=== PATIENT | female | born 1940 | race Caucasian/White ===

== ENCOUNTER 2016-07-29 07:30 | Inpatient (IN) | payer MEDICARE, BC ==
[~2016-07-29] VITALS: Ht 168.9 cm; Wt 91.7 kg
[~2016-07-29 07:30] MED LIST: ATOR80TA76 PO; CALC-652 PO; CHOL200024 PO; CITA40TA6 PO; FLEC50TA2 PO; LEVO150T11 PO; LISI10TA7 PO; RIVA20TA PO
--- NOTE | 2016-07-29 14:00 | NUR ---
JOINT REPLACEMENT PREOP CLASS PATIENT ATTENDED JOINT REPLACEMENT PREOP CLASS. CASE MANAGEMENT CONTACT INFORMATION PROVIDED. EDUCATION WAS PROVIDED REGARDING WHAT TO EXPECT BEFORE, DURING AND AFTER SURGERY. INCLUDING: OVERVIEW OF ANATOMY AND PHYSIOLOGY HOSPITAL TREATMENT SCHEDULE THERAPY DEMONSTRATION CASE MANAGEMENT RESPONSIBILITIES DISCHARGE PLANNING EQUIPMENT NEEDS JOINT REPLACEMENT WORKBOOK ANTI-COAGULATION SURGERY STRONG NUTRITIONAL PROTOCOL DISCHARGE INSTRUCTIONS [facility] PATIENT PORTAL, WITH INSTRUCTIONS CJR AND PREOP SURVERY PREOP BATHING- CHG GIVEN ALL PATIENT'S QUESTIONS ANSWERED TO THEIR SATISFACTION. PATIENTS AND COACHES ENCOURAGED TO CALL WITH ANY ADDITIONAL QUESTIONS OR CONCERNS. CM FOLLOWING FOR TRANSITIONAL CARE PLANNING NEEDS DURING HOSPITALIZATION.
--- NOTE | 2016-08-04 09:55 | NUR ---
PMH, allergies, meds reviewed and updated. Preop and DOS instructions given and handouts of medications to stop before surgery, shower instructions, letter from Dr Medina, Surgical Services pamphlet and my contact information.
[2016-08-04] MEDS ORDERED: ACYC200C5 PO (10:58)
[2016-08-04] MEDS ORDERED: FURO20TA4 PO (10:58)
[2016-08-04] MEDS ORDERED: POTA8TAB3 PO (10:58)
[2016-08-04] MEDS ORDERED: TIMO5DRO7 LEFT EYE (10:58)
[2016-08-05] MEDS ORDERED: LEVO175T9 PO (14:32)
[2016-08-26] VITALS (28 sets, daily range): BP systolic 95–147; BP diastolic 46–71; PULSE 66–80; RESP 14–23; TEMP 96.8–99.1; O2SAT 91–100; Ht 168.9 cm; Wt 91.7 kg
[2016-08-26] MEDS ORDERED: LIDOCAINE 1% (10mg/ml) 2ml SDV SQ ONE (06:00)
[2016-08-26] MEDS ORDERED: METOCLOPRAMIDE 10mg/2ml INJECTION IV ONE (06:00)
[2016-08-26] MEDS ORDERED: CEFAZOLIN 2 GM VIAL IV ONE (06:00)
[2016-08-26] MEDS ORDERED: FAMOTIDINE 20mg IVPB 50 ML IV ONE (06:00)
[2016-08-26] MEDS ORDERED: ACETAMINOPHEN 500 MG TABLET PO ONE (07:00)
[2016-08-26] MEDS ORDERED: ONDANSETRON 4mg/2ml INJECTION IV ONE (07:00)
[2016-08-26] MEDS ORDERED: NOZIN NASAL SWAB NS ONE ×2 (07:00→14:00)
[2016-08-26] MEDS ORDERED: LR 1,000 ML IV SCH (07:00)
--- OUTSIDE RECORDS SUMMARY | 2016-08-26 09:12 | XMS REPORT | Continuity of Care Document ---
Author Author [facility] Organization [facility] Address Unknown Phone Unavailable Support Name Relationship Address Phone ILEANA QUINTERO MD Caregiver [address] [place] [address] Unavailable ROMY SORIA DO Caregiver [address] [place] [address] Unavailable VANESSA SUN Next Of Kin [address] [place] [address] Insurance Providers Guarantor Linnette Oakes Address [address] [address] C Email [email or web address] Policy Number [id number] Subscriber's Name Linnette Oakes Relationship 18 Self Group Number [id number] Payer Medicare Policy Number [id number] Subscriber's Name Linnette Oakes Relationship 18 Self Advance Directives Directive Response Recorded Date/Time Ordered Resuscitation Status Full Code 03/19/16 2:05pm Resuscitation Documents on File No 03/20/16 6:02am DPOA for Healthcare Only No 03/20/16 6:02am Living Will No 03/20/16 6:02am Problems Active Problems Medical Problem Onset Date Status Acute respiratory failure with hypoxia Unknown Resolved Dyspnea on exertion Unknown Acute Fasting hypoglycemia Unknown Chronic Hypertension Unknown Chronic Hypokalemia Unknown Resolved Hypomagnesemia Unknown Resolved Hypothyroidism Unknown Chronic Hypoxia Unknown Acute New onset atrial flutter Unknown Resolved PAT (paroxysmal atrial tachycardia) Unknown Resolved Prediabetes Unknown Chronic Pulmonary emboli Unknown Acute Pulmonary hypertension Unknown Chronic Sleep apnea Unknown Chronic Status post Castillo fundoplication Unknown Acute Suspected DVT (deep vein thrombosis) Unknown Acute Suspected pulmonary embolism Unknown Acute Swelling of left lower extremity Unknown Acute Tricuspid regurgitation Unknown Chronic Volume overload Unknown Resolved Surgical Problem Onset Date Status Sliding hiatal hernia Unknown Resolved Past Problems Medical Problem Onset Date Adverse reaction to drug Unknown Allergic conjunctivitis Unknown Allergic reaction Unknown Head contusion Unknown Strain of left patellar tendon Unknown Medications Current Home Medications Medication Dose Units Route Directions Days Qty Instructions Start Date Acyclovir 200 Mg Capsule 1 Cap Oral Daily 25 Capsule 03/07/16 Alendronate Sodium 70 Mg Tablet 70 Mg Oral Weekly 10/28/15 Atorvastatin Calcium 80 Mg Tablet 80 Mg Oral Bedtime 10/28/15 Calcium Carbonate (Calcium) 1 Tab Tablet 1,200 Mg Oral Daily 04/02 Cholecalciferol (Vitamin D3) (Vitamin D) 2,000 Unit Tablet 2,000 Unit Oral Daily 10/28/15 Citalopram Hydrobromide (Citalopram Hbr) 40 Mg Tablet 40 Mg Oral Bedtime 10/28/15 Cyclosporine (Restasis) 1 Each Droperette 1 Drop Both Eyes Every 12 Hours 03/07/16 Flecainide Acetate 50 Mg Tablet 50 Mg Oral Twice A Day 10/28/15 Furosemide 40 Mg Tablet 40 Mg Oral Daily 10/28/15 Levothyroxine Sodium 150 Mcg Tablet 150 Mcg Oral Daily 10/28/15 Lisinopril 10 Mg Tablet 10 Mg Oral Daily 10/28/15 Magnesium Oxide 400 Mg Tablet 400 Mg Oral Daily 12/28/15 Meloxicam 15 Mg Tablet 15 Mg Oral Daily 10/28/15 Ondansetron Hcl 4 Mg Tablet 1-2 Tab Oral Q8h @ 0100/0900/1700 Oxycodone/Acetaminophen (Percocet 7.5-325 Mg Tablet) 7.5-325 Tablet 1-2 Tab Oral Every 5 Hours as needed for Pain 30 Tablet 03/20/16 Polyethylene Glycol 3350 (Miralax) 17 Gm Powd.pack 17 G Oral Daily as needed for Constipation 1 Bottle Take 17 Grams (1 capful), by mouth, once a day. 03/20/16 Potassium Chloride (Klor-Con M20) 20 Meq Tablet 20 Meq Oral Twice A Day 03/02/15 Rivaroxaban (Xarelto) 20 Mg Tablet 20 Mg Oral Bedtime 10/28/15 Timolol Maleate (Timolol Maleate 0.25%) 15 Ml Drops 1 Drop Left Eye Only Daily 06/06/08 Past Home Medications Medication Directions Ordered Status Acetaminophen With Codeine 5 Ml Elixir, 5-10 Ml Oral Every 4 Hours as needed for Pain 01/02/14 Discontinued Acetaminophen With Codeine 5 Ml Elixir, 5-10 Ml Oral Every 4 Hours as needed for Pain 01/02/14 Discontinued Ascorbic Acid (Vitamin C) 500 Mg Tablet.sa, 500 Mg Oral Daily 06/06/08 Discontinued Furosemide (Lasix) 20 Mg Tablet, 20 Mg Oral Daily 10/25/12 Discontinued Levothyroxine Sodium (Synthroid) 100 Mcg Tablet, 100 Mcg Oral Daily 06/06/08 Discontinued Lisinopril 10 Mg Tablet, 10 Mg Oral Daily 03/10/11 Discontinued Metoprolol Succinate (Toprol Xl) 50 Mg Tab.sr.24h, 50 Mg Oral Daily 06/06/08 Discontinued Multivitamins W-Minerals (Multivitamin) 1 Cap Capsule, 1 Cap Oral Daily 06/06 Discontinued Omeprazole (Prilosec) 40 Mg Capsule.dr, 40 Mg Oral Daily 10/25/12 Discontinued Potassium Chloride (Klor-Con M20) 20 Meq Tablet, 20 Meq Oral Twice Daily With Meals 01/02/14 Discontinued Simvastatin (Zocor) 40 Mg Tablet, 40 Mg Oral Bedtime 06/06/08 Discontinued Social History Social History Problem Response Recorded Date/Time Onset Date Status Reason for Hospitalization RIGHT KNEE ARTHROSCOPY 03/20/2016 8:34am Not Applicable Not Applicable Chewing Tobacco Status No 02/03/2013 3:08pm Not Applicable Not Applicable Hx Substance Use No 02/25/2016 10:21am Not Applicable Not Applicable Hx Alcohol Use Y MAYBE MONTHLY 02/25/2016 10:21am Not Applicable Not Applicable Has the pt used tobacco in the last 12 months No 03/07/2016 11:11am Not Applicable Not Applicable Tobacco Usage none 10/28/2015 9:57pm Not Applicable Not Applicable Query Response Start Date Stop Date Smoking Status Former smoker Hospital Discharge Instructions Instructions: Care Instructions: I was in the hospital because (patient own words): "TO GET MY RIGHT KNEE SCOPED " Discharge Diet: Resume normal diet as tolerated. Discharge Activity: Maintain leg elevataion while sitting and sleeping at night. Put a pillow under the ankle/foot, NOT under the knee. Follow Up Appointments: A Physical Therapy prescription may have been given to you. This should be scheduled for 2-3 days after surery. The first goal in physical therapy will be to restore full range of motion, followed bu quadriceps and hamstring muscle strengthening. Pending Lab / Results: No Pending Lab Expected Signs/Symptoms: You may develop bruising around your knee and down into you calf. Do not be alarmed; this is normal following surgery. If you develop significant calf swelling, redness, or tenderness, you should contact our office promptly. You may also develop a low-grade fever after surgery (up to 101.5 degrees). This is normal. You should perform 10 deep down breaths with forced, full exhalation every hour while awake to help keep your temperature down. Notify Physician If: You should contact our office if you develop significant drainage from the surgical incision, redness, or fever above 102 degrees. During Business Hours:: Please call our office at [phone]. After Business Hours:: After office hours, please call [facility] at [phone] and have the replanting machine operator page the physician. Pain Management/Treatment: Use prescribed medications Wound/Incision Care: Keep the incisions clean and dry. On post-op day #2 you may remove the dressing and place Band-Aids. DO NOT apply creams or ointments (bacitracin, triple antibiotic) to the incisions. You may shower on post-op day #2 with a plastic bag or plastic wrap (saran wrap) and tape around the knee to cover the surgical sites. Keep the wounds dry at all times, until your sutures are removed by the doctor. Do not soak the knee in water or go swimming until your sutures are removed. Use the maine wrap for 3 days. If Polar Care was placed in the OR, it should be used continuously until the dressings are removed. Apply ice packs or the Polar Care to the area 20-30 minues four times per day after dressing removal. Always maintain a layer of protection between ice or the Polar Care and the skin. Frostbite CAN develop if the skin isn't protected. Keep the Polar Care machine loaded with fresh ice. Condition at time of discharge: Good Plan of Care Discharge Date 03/20/16 10:22am Instructions/Education Provided [facility] Knee Scope Prescriptions See Medication Section Functional Status Query Response Date Recorded Ability to complete ADL's impeded by No change March 20, 2016 6:02am Allergies, Adverse Reactions, Alerts Allergen Type Severity Reaction Status Last Updated Pentazocine Allergy Intermediate HALLUCINATIONS Active 03/20/16 Erythromycin base Adverse Reaction Mild NAUSEA Active 03/20/16 Immunizations Query Response on File Recorded Date/Time Hx Influenza Vaccination Y 03-04-16 03/07/16 11:11am Hx Pneumococcal Vaccination Y 03-04-16 03/07/16 11:11am Hx Tetanus, Diptheria, Pertussis N UNCERTAIN 11/15/11 4:17pm Hx Influenza Vaccination Y 03-04-16 03/07/16 11:11am Hx Tetanus, Diptheria, Pertussis N UNCERTAIN 11/15/11 4:17pm DTaP Vaccine History 201012/28/15 1:51pm Influenza Vaccine Hx 02/201512/28/15 1:51pm Pneumococcal PCV13 Vaccine Hx UNK 10/28/15 8:03pm Tdap Vaccine Hx 201010/28/15 8:03pm Vital Signs Acute Vital Signs Vital Response Date/Time Temperature (Fahrenheit) 97.5 deg F (96.8 - 99.1) 03/20/2016 9:15am Temperature (Calculated Celsius) 36.92364 degrees C (36.0 - 37.3) 03/20/2016 9:15am Temperature Source Temporal 03/20/2016 9:15am Pulse Rate (adult) 68 bpm (60 - 100) 03/20/2016 9:45am Respiratory Rate 18 breaths/min (10 - 20) 03/20/2016 9:45am O2 Sat by Pulse Oximetry 94 % (90 - 100) 03/20/2016 9:45am Oxygen Delivery Method Room Air 03/20/2016 9:45am Oxygen Flow Rate 2.00 L/min 03/20/2016 8:29am Blood Pressure 138/59 mm Hg 03/20/2016 9:45am Blood Pressure Source Automatic Cuff 03/20/2016 9:45am Height (Feet) 5 feet 03/20/2016 6:04am Height (Inches) 6.00 inches 03/20/2016 6:04am Weight (Kilograms) 88.100 kg 03/20/2016 6:04am Body Mass Index (BMI) 31.4 03/20/2016 6:04am Results Laboratory Results Test Name Result Units Flags Reference Collection Date/Time Result Date/ Time Comments Icterus Index < 2 0-7 03/20/2016 6:07am 03/20/2016 6:31am Chemistry Specimen Hemolysis < 15 0-25 03/20/2016 6:07am 03/20/2016 6 :31am 0-25: Specimen Exhibited No Hemolysis. Turbidity < 20 0-20 03/20/2016 6:07am 03/20/2016 6:31am Sodium Level 142 MEQ/L 134-144 03/20/2016 6:07am 03/20/2016 6:31am Potassium Level 4.5 MEQ/L 3.6-5 03/20/2016 6:07am 03/20/2016 6:31am Chloride Level 106 MEQ/L 98-107 03/20/2016 6:07am 03/20/2016 6:31am Carbon Dioxide Level 25 MEQ/L 22-30 03/20/2016 6:07am 03/20/2016 6: 31am Anion Gap 11 MEQ/L 5-15 03/20/2016 6:07am 03/20/2016 6:31am Blood Urea Nitrogen 14.0 MG/DL 7-03/20/2016 6:07am 03/20/2016 6: 31am Creatinine 0.8 MG/DL 0.7-1.2 03/20/2016 6:07am 03/20/2016 6:31am BUN/Creatinine Ratio 18 RATIO 11-1703/20/2016 6:07am 03/20/2016 6:31am Glomerular Filtration Rate Calc 70 03/20/2016 6:07am 03/20/2016 6: 31am Glucose Level 115 MG/DL H 65-110 03/20/2016 6:07am 03/20/2016 6:31am Calculated Osmolality 275 MOSM/KG 261-280 03/20/2016 6:07am 03/20/2016 6:31am Calcium Level 9.3 MG/DL 8.4-10.2 03/20/2016 6:07am 03/20/2016 6:31am Procedures Procedure Status Date Provider(s) EMERGENCY DEPT VISIT Completed 12/28/15 Knee arthroscopy Completed 03/20/16 ILEANA QUINTERO MD Encounters Encounter Location Arrival/Admit Date Discharge/Depart Date Attending Provider Departed Surgical Day Care [facility] 03/20/16 5:44am 03/20/16 10 :22am ILEANA QUINTERO MD Departed Emergency Room [facility] 12/28/15 12:18pm 12/28/15 2: 40pm JEWEL CISNEROS MD
--- OUTSIDE RECORDS SUMMARY | 2016-08-26 09:13 | XMS REPORT | Continuity of Care Document ---
Author Author [facility] Organization [facility] Address Unknown Phone Unavailable Support Name Relationship Address Phone MACIE YUNG MD Caregiver [facility] [address] [place] [address] SHANNA CHRISTIANSON [address] [place] [address] [phone] ROMY SORIA DO Caregiver [address] [facility] [address] [place] [address] [phone] DINOVANESSA Next Of Kin [address] [place] [address] Insurance Providers Payer Name Policy Number Subscriber Name Relationship Medicare [id number] Linnette Oakes 18 Self [facility] [id number] Linnette Oakes 18 Self Advance Directives Directive Response Recorded Date/Time Advanced Directives Type None 12/22/13 8:02pm Ordered Resuscitation Status Full Code 12/21/13 11:22am Chief Complaint and Reason for Visit Chief Complaint ROBOTIC ESOPHAGEAL HERNIA REPAIR [id number] Reason for Visit New onset atrial flutter Hypertension Hypothyroidism Status post Castillo fundoplication Hypomagnesemia Sleep apnea Hypoxia PAT (paroxysmal atrial tachycardia) Volume overload Pulmonary hypertension Tricuspid regurgitation Pulmonary emboli Hypokalemia Acute respiratory failure with hypoxia Sliding hiatal hernia Problems Medical Problems Problem Onset Date Status New onset atrial flutter Unknown Resolved Hypertension Unknown Active Hypothyroidism Unknown Active Status post Castillo fundoplication Unknown Active Hypomagnesemia Unknown Resolved Sleep apnea Unknown Active Hypoxia Unknown Active PAT (paroxysmal atrial tachycardia) Unknown Resolved Volume overload Unknown Resolved Pulmonary hypertension Unknown Active Tricuspid regurgitation Unknown Active Pulmonary emboli Unknown Active Hypokalemia Unknown Resolved Acute respiratory failure with hypoxia Unknown Resolved Surgical Problems Problem Onset Date Recorded Date/Time Status Sliding hiatal hernia Unknown 12/26/2013 5:56pm Resolved Medications Medication Dose Route Sig Days/Qty Instructions Order Date Discontinued Date Status Timolol Maleate 15 Ml OP TWICE A DAY 06/06/08 Active Metoprolol Succinate 50 Mg PO DAILY 06/06/08 03/10/11 Discontinued Acyclovir 200 Mg PO TWICE A DAY 06/06/08 Active Levothyroxine Sodium 100 Mcg PO DAILY 06/06/08 11/15/11 Discontinued Citalopram Hydrobromide 40 Mg PO BEDTIME 06/06/08 Active Simvastatin 40 Mg PO BEDTIME 06/06/08 10/25/12 Discontinued Calcium Carbonate 1 Tab PO DAILY 06/06/08 Active Multivitamins W-Minerals 1 Cap PO DAILY 06/06/08 09/05/11 Discontinued Ergocalciferol 2,000 Unit PO DAILY 06/06/08 Active Ascorbic Acid 500 Mg PO DAILY 06/06/08 09/05/11 Discontinued Lisinopril 10 Mg PO DAILY 03/10/11 01/02/14 Discontinued Levothyroxine Sodium 150 Mcg PO DAILY 11/15/11 Active Omeprazole 40 Mg PO DAILY 10/25/12 Active Ibandronate Sodium 2.5 Mg PO MONTHLY 10/25/12 Active Furosemide 20 Mg PO DAILY 10/25/12 01/02/14 Discontinued Pramipexole Di-HCl 1 Mg PO TWICE A DAY 12/19/13 Active Flecainide Acetate 50 Mg PO EVERY 12 HOURS 60 Qty 12/31/13 Active Rivaroxaban 1 Tab PO TWICE A DAY BREAKFAST & SUPPER 17 Days 12/31/13 Active Rivaroxaban 1 Tab PO GIVE WITH SUPPER 30 Qty 12/31/13 Active Bumetanide 1 Mg PO DAILY 30 Days 01/02/14 Active Potassium Chloride 20 Meq PO TWICE DAILY WITH MEALS 60 Qty 01/02/14 Active [Acetaminophen With Codeine] 5-10 Ml PO Q4H PRN PAIN 01/02/14 Discontinued [Acetaminophen With Codeine] 5-10 Ml PO Q4H PRN PAIN 150 Qty 01/02/14 Active Social History Social History Problem Response Recorded Date/Time Smoking Status Former smoker 12/22/2013 8:03pm When did patient START smoking? "IN MY EARLY 20'S" 12/22/2013 8:03pm When did patient STOP smoking? 199012/22/2013 8:03pm Chewing Tobacco Status No 02/03/2013 3:08pm Hx Substance Use No 12/19/2013 2:31pm Hx Alcohol Use Y OCCASIONALLY 12/19/2013 2:31pm Has the pt used tobacco in the last 12 months No 12/22/2013 8:03pm Query Response Start Date Stop Date Smoking Status Former smoker Hospital Discharge Instructions Instructions: Care Instructions: Reason for Hospitalization: Scheduled surgery I was in the hospital because (patient own words): HIATAL HERNIA SURGERY Discharge Diet: Full liquid diet Discharge Activity: As tolerated Follow Up Appointments: - Dr. Yung 01/16/14 at 09:00 AM in the office - Dr. Soria 01/16/14 at 10:15 - Dr. Henao 01/15/14 at 15:00 Wound/Incision Care: - May shower. - No tub baths until 01/06/14 Notify Physician If: Nausea, vomiting, or dysphagia develop. Condition at time of discharge: Good Care Plan Discharge Patient: Goal: Baseline oxygen level Patient Instructions: see patient instructions see patient instructions Condition at time of discharge: Good Care Plan Discharge Patient: Patient Instructions: see patient instructions Discharge Patient: Patient Instructions: see patient instructions General Information: Continue to cough, deep breath at least 8X and hour. New Scripts Called to Pharmacy: GABAPENTIN CALLED TO [facility] PER PT REQUEST. SCRIPT FOR ROXICODONE SENT WITH PT PT CHOSE TO USE OTC COLACE AND EC ASPIRIN AFTER CONVERSATION WITH [facility]. Condition at time of discharge: Good Care Plan Discharge Patient: Patient Instructions: see patient instructions Plan of Care Discharge Date 01/02/14 5:05pm Disposition 03 TO [facility] ([facility]) Instructions/Education Provided DI for Fundoplication DI for Hiatal Hernia Fundoplication -- Endoscopic Surgery Prescriptions See Medications Section Functional Status Query Response Date Recorded Physical Hygiene Self January 02, 2014 2:24pm Disabilities Visual January 02, 2014 2:24pm Devices Used Glasses January 02, 2014 2:24pm Dressing Self January 02, 2014 2:24pm Ambulation Self January 02, 2014 2:24pm Diet Self January 02, 2014 2:24pm Mental Status Alert January 02, 2014 2:24pm Disabilities Visual January 02, 2014 2:24pm Devices Used Glasses January 02, 2014 2:24pm Physical Hygiene Self January 02, 2014 2:24pm Dressing Self January 02, 2014 2:24pm Ambulation Self January 02, 2014 2:24pm Diet Self January 02, 2014 2:24pm Allergies, Adverse Reactions, Alerts Allergen Type Severity Reaction Status Last Updated Pentazocine Allergy Intermediate HALLUCINATIONS Active 11/15/11 Erythromycin base Allergy Mild NAUSEA Active 11/15/11 Immunizations Name Given Type Hx Influenza Vaccination Y FALL 2012 Historical Hx Pneumococcal Vaccination Y AFTER AGE 65 Historical Hx Tetanus, Diptheria, Pertussis N UNCERTAIN Historical Hx Influenza Vaccination Y FALL 2012 Historical Hx Tetanus, Diptheria, Pertussis N UNCERTAIN Historical Vital Signs Acute Vital Signs Vital Response Date/Time Temperature (Fahrenheit) 97.7 deg F (96.8 - 99.1) Temperature (Calculated Celsius) 36.64294 degrees C (36.0 - 37.3) Temperature Source Oral Pulse Rate (adult) 74 bpm (60 - 100) Respiratory Rate 16 breaths/min (10 - 20) O2 Sat by Pulse Oximetry 92 % (90 - 100) Blood Pressure 116/66 mm Hg Blood Pressure Source Automatic Cuff Height 5 ft 7 in Weight 175 lb Body Mass Index 27.0 kg/m^2 Results Test Source Date Result Interp. Ref. Range Comments 25-Hydroxy Vitamin D Total October 13, 2012 10:27am 87 ng/mL H - The desirable level of 25-Hydroxy Vitamin D Total(D2 + D3) is 30-74 ng/mL.A level consistently >200 is potentially toxic. Vitamin D, 25-Hydroxy performed at [facility] Reference Lab, [address] [place] [address] Expansion Joint Finisher Taryn Nichole MD 25-Hydroxy Vitamin D2 October 13, 2012 10:27am <7 ng/mL - 25-Hydroxy Vitamin D3 October 13, 2012 10:27am 87 ng/mL - Activated Partial Thromboplast Time September 16, 2011 2:36pm 30.0 SEC N 24- 36 Alanine Aminotransferase (ALT/SGPT) January 01, 2014 4:19am 67 U/L H 9- 52 Albumin January 01, 2014 4:19am 3.1 G/DL L 3.5-5.0 Albumin/Globulin Ratio January 01, 2014 4:19am 1.0 RATIO L 1.1-2.2 Alkaline Phosphatase January 01, 2014 4:19am 124 U/L N 38-126 Anion Gap January 01, 2014 4:19am 9 MEQ/L N 5-15 Anisocytosis December 25, 2013 4:20am 1+ - Arterial Blood Base Excess December 25, 2013 5:10am 2.1 MMOL/L H -2.0-2.[address] VANESSA WITH CRITICAL VALUES Arterial Blood HCO3 December 25, 2013 5:10am 28 MEQ/L H 22-[address] VANESSA WITH CRITICAL VALUES Arterial Blood Oxygen Saturation December 25, 2013 5:10am 91.0 % L 95.0- 98.[address] VANESSA WITH CRITICAL VALUES Arterial Blood Partial Pressure CO2 December 25, 2013 5:10am 47 MMHG H 34- [address] VANESSA WITH CRITICAL VALUES Arterial Blood Total CO2 December 25, 2013 5:10am 29.2 MEQ/L H 23-[address] VANESSA WITH CRITICAL VALUES Arterial Blood pH December 25, 2013 5:10am 7.380 N 7.350-7.[address] VANESSA WITH CRITICAL VALUES Arterial Blood pO2 at Patient Temp December 25, 2013 5:10am 62 MMHG L 80- [address] VANESSA WITH CRITICAL VALUES Aspartate Amino Transf (AST/SGOT) January 01, 2014 4:19am 42 U/L H 14-36 BUN/Creatinine Ratio January 01, 2014 4:19am 13 RATIO N 6-26 Band Neutrophils # December 29, 2013 5:15am 0.3 T/MM3 - Band Neutrophils % December 29, 2013 5:15am 3.0 % N 0-6 Basophils # (Auto) December 31, 2013 4:23am 0.0 T/MM3 N 0-0.2 Basophils (%) (Auto) December 31, 2013 4:23am 0.3 % N 0-2 Blood Gas Oxygen Liter Flow December 25, 2013 5:10am COMMENT CALL DR. VANESSA WITH CRITICAL VALUES - Blood Gas Oxygen Percent Given December 25, 2013 5:10am 50 - COMMENT CALL DR. VANESSA WITH CRITICAL VALUES Blood Gas Tidal Volume December 25, 2013 5:10am COMMENT CALL DR. VANESSA WITH CRITICAL VALUES 0-1200 Blood Gas Vent Rate December 25, 2013 5:10am COMMENT CALL DR. VANESSA WITH CRITICAL VALUES 0-30 Blood Urea Nitrogen January 01, 2014 4:19am 12.0 MG/DL N 7-17 Calcium Level January 01, 2014 4:19am 8.9 MG/DL N 8.4-10.2 Calculated Osmolality January 01, 2014 4:19am 258 MOSM/KG L 261-280 Carbon Dioxide Level January 01, 2014 4:19am 29 MEQ/L N 22-30 Chemistry Specimen Hemolysis January 01, 2014 4:19am < 15 0-25 0-25: No Hemolysis.26-70: Slight Hemolysis - can falsely elevate K and Urine Protein. 71-285: Moderate Hemolysis - can falsely elevate K, Troponin I, CA 19-9, PTH, CSF GLucose, and Urine Protein, and can falsely decrease Phenytoin. 286-999: Gross Hemolysis - can falsely elevate K, Troponin I, CA 19-9, PTH, CSF Glucose, and Urine Protine, and can falsely decrease Phenytoin. Recommend specimen recollection. Chloride Level January 01, 2014 4:19am 96 MEQ/L L 98-107 Conjugated Bilirubin September 16, 2011 2:36pm 0.00 MG/DL N 0.00-0.30 Creatinine January 01, 2014 4:19am 0.9 MG/DL N 0.7-1.2 D-Dimer December 25, 2013 4:20am 848 NG/ML H 0-230 <224 NG/ML= PRESUMPTIVE NEGATIVE FOR PE OR DVT>224 NG/ML=ADDITIONAL EVALUATION FOR PE OR DVT RECOMMENDED Eosinophils # (Auto) December 31, 2013 4:23am 0.2 T/MM3 N 0-0.5 Eosinophils # (Manual) December 29, 2013 5:15am 0.5 T/MM3 N 0-0.5 Eosinophils % (Manual) December 29, 2013 5:15am 5.0 % H 0-4 Eosinophils (%) (Auto) December 31, 2013 4:23am 1.9 % N 0-4 Free Thyroxine December 23, 2013 1:30pm 1.03 NG/DL N 0.78-2.19 COMMENT add to blood in lab Globulin January 01, 2014 4:19am 3.1 G/DL N 2.4-3.6 Glomerular Filtration Rate Calc January 01, 2014 4:19am 61 - Glucose Level January 01, 2014 4:19am 103 MG/DL N 65-110 HDL Cholesterol Direct August 31, 2013 5:48am 52 MG/DL N 40-60 Hematocrit December 31, 2013 4:23am 34.8 % L 36-46 Hemoglobin December 31, 2013 4:23am 11.3 GM/DL L 12-16 Icterus Index January 01, 2014 4:19am < 2 0-7 Immature Granulocyte # (Auto) December 31, 2013 4:23am 0.11 T/MM3 H 0.00- 0.03 Immature Granulocyte % (Auto) December 31, 2013 4:23am 1.2 % H 0.0-0.5 LDL Cholesterol Direct August 31, 2013 5:48am 95.91 MG/DL L 100-129 Lab Scanned Report August 31, 2013 2:14pm LAB TEST FORM REQUEST [id number] - Lymphocytes # (Auto) December 31, 2013 4:23am 2.7 T/MM3 N 1-4.8 Lymphocytes # (Manual) December 29, 2013 5:15am 3.2 T/MM3 N 1-4.8 Lymphocytes % (Manual) December 29, 2013 5:15am 30.0 % N 23-45 Lymphocytes (%) (Auto) December 31, 2013 4:23am 28.6 % N 23-45 Magnesium Level December 31, 2013 4:23am 2.1 MG/DL N 1.6-2.3 Mean Corpuscular Hemoglobin December 31, 2013 4:23am 30.9 UUG N 26-34 Mean Corpuscular Hemoglobin Concent December 31, 2013 4:23am 32.5 GM/DL N 31-37 Mean Corpuscular Volume December 31, 2013 4:23am 95.1 UM3 N 80-100 Mean Platelet Volume December 31, 2013 4:23am 9.3 UM3 L 9.4-12.4 Monocytes # (Auto) December 31, 2013 4:23am 1.3 T/MM3 H 0-0.8 Monocytes # (Manual) December 29, 2013 5:15am 0.5 T/MM3 N 0-0.8 Monocytes % (Manual) December 29, 2013 5:15am 5.0 % N 0-9.0 Monocytes (%) (Auto) December 31, 2013 4:23am 13.8 % H 0-9.0 SM-Vpu-N-Type Natriuretic Peptide September 16, 2011 2:36pm 200 PG/ML H 0- 175 Rule in cut points: <50 years old=450; 50-75 years old=900; >75 years old=1800; When utilizing ProBNP rule-in cut points, adjustment for impaired renal function is typically not required. Neutrophils # (Auto) December 31, 2013 4:23am 5.1 T/MM3 N 1.8-7.7 Neutrophils # (Manual) December 29, 2013 5:15am 6.0 T/MM3 N 1.8-7.7 Neutrophils % (Manual) December 29, 2013 5:15am 57.0 % N 33-66 Neutrophils (%) (Auto) December 31, 2013 4:23am 54.2 % N 33-66 Oxygen Delivery Method (LAB) December 25, 2013 5:10am Bpap, % - COMMENT CALL DR. VANESSA WITH CRITICAL VALUES Platelet Count December 31, 2013 4:23am 308 T/MM3 N 130-400 Potassium Level January 01, 2014 4:19am 4.3 MEQ/L N 3.6-5 Prothromb Time International Ratio September 16, 2011 2:36pm 0.95 N 0.86- 1.10 THERAPUTIC RANGE=2.00-3.00 FOR ANTI-THROMBOSIS THERAPUTIC RANGE=2.50- 3.50 FOR IMPLANTED VALVE RDW Standard Deviation December 31, 2013 4:23am 44.0 FL N 36.9-50.2 Reactive Lymphocytes # December 25, 2013 4:20am 0.3 T/MM3 H 0-0 Reactive Lymphocytes % December 25, 2013 4:20am 4.0 % H 0-0 Red Blood Count December 31, 2013 4:23am 3.66 M/MM3 L 4.00-5.20 Sodium Level January 01, 2014 4:19am 134 MEQ/L N 134-144 Thyroid Stimulating Hormone (TSH) December 23, 2013 1:30pm 0.17 MIU/L DL 0.47-4.68 COMMENT add to blood in lab Thyroxine (T4) February 24, 2013 6:38am 4.5 ug/dL - Thyroxine (T4) performed at [facility] Reference Lab, [address] [place] [address] Expansion Joint Finisher Taryn Nichole MD Total Bilirubin January 01, 2014 4:19am 0.40 MG/DL N 0.20-1.30 Total Creatine Kinase August 31, 2013 5:48am 105 U/L N 30-135 Total Protein January 01, 2014 4:19am 6.2 G/DL L 6.3-8.2 Triglycerides Level August 31, 2013 5:48am 183 MG/DL H 35-135 Triiodothyonine (T3) (AWAIS) February 24, 2013 6:38am 58 ng/dL L - T3 Total performed at [facility], [address], [place] [address]Medical Director Taryn Nichole MD Troponin I September 16, 2011 2:36pm < 0.012 ng/ml 0-0.12 Turbidity January 01, 2014 4:19am < 20 0-20 Unconjugated Bilirubin September 16, 2011 2:36pm 0.30 MG/DL N 0.00-1.10 Vitamin D 25-Hydroxy August 21, 2010 11:56am Ref lab rpt scanned - -- - 08/23/10 1348 ---VIT25 previously reported as: SEND OUT White Blood Count December 31, 2013 4:23am 9.5 T/MM3 N 4.5-11.0 Blood Culture Blood September 16, 2011 4:15pm NO GROWTH AFTER 5 DAYS Name: LINNETTE OAKES Unit #: [id number] : [id number] Sex: F Loc / Svc: CCU DOS: Signed Report #: [id number] DIAGNOSTIC IMAGING REPORT TYPE OF EXAM: CHEST 1 VIEW Dictated By: CHEN BATEMAN MD INDICATION: ITS.REASON: to check pulmonary congestion? CHEST 1 VIEW: Comparison: Chest x-ray dated December 25, 2013 Findings: Lungs are hypoinflated. Small bilateral effusions are decreased in size. No pneumothorax. Bibasilar atelectasis. Heart size and mediastinal contours are unchanged. Pulmonary vascularity is less congested. Impression: Improving congestive failure. . Procedures Procedure Status Date Provider(s) Robot-assisted Castillo fundoplication completed 12/22/13 MACIE YUNG MD Encounters Encounter Location Date/Time Discharged Inpatient [facility] 12/22/13 6:30am Recent Diagnosis New onset atrial flutter Hypertension Hypothyroidism Status post Castillo fundoplication Hypomagnesemia Sleep apnea Hypoxia PAT (paroxysmal atrial tachycardia) Volume overload Pulmonary hypertension Tricuspid regurgitation Pulmonary emboli Hypokalemia Acute respiratory failure with hypoxia
--- OUTSIDE RECORDS SUMMARY | 2016-08-26 09:13 | XMS REPORT | Referral Summary ---
Author Author [facility] Organization [facility] Address Unknown Phone Unavailable Care Team Providers Care Histology Aide Name Role Phone Shannan Alexander Primary Care Physician [phone] Encounter VC Date(s): 03/04/16 - 03/04/16 [facility] [address] [place], [place] [address] Discharge Diagnosis: Breath shortness Discharge Disposition: 01-Home or Self Care Attending Physician: Spencer Barajas MD Vital Signs No data available for this section Problem List Condition Effective Dates Status Health Status Informant Breath Active shortness(Confirmed) Heartburn(Confirmed) 05/26/12 Active Obesity(Confirmed) Active patient Obstructive sleep Active apnea, adult(Confirmed) Short of breath on 05/26/12 Active exertion(Confirmed) Allergies, Adverse Reactions, Alerts No Known Allergies Medications acyclovir 200 mg oral capsule 1 caps, Oral, Daily, 0 Refill(s) Start Date: 10/24/13 Status: Ordered BIPAP Machine (DME) DME Item at bedtime, See Instructions, # 1 Each, 0 Refill(s), Supply Start Date: 01/15/15 Status: Ordered CeleXA 40 mg oral tablet 1 tabs, Oral, Daily, # 30 tabs, 0 Refill(s) Start Date: 10/24/13 Status: Ordered flecainide 50 mg oral tablet 1 tabs, Oral, q12hr, 0 Refill(s) Start Date: 06/01/14 Status: Ordered Klor-Con M20 20 mEq, Oral, Daily, 0 Refill(s) Start Date: 06/01/14 Status: Ordered Lasix 40 mg, Oral, BID, 0 Refill(s) Start Date: 10/24/13 Status: Ordered levothyroxine 150 mcg (0.15 mg) oral tablet 1 tabs, Oral, Daily, # 30 tabs, 0 Refill(s) Start Date: 10/24/13 Status: Ordered Lipitor 80 mg oral tablet 1 tabs, Oral, Daily, # 30 tabs, 0 Refill(s) Start Date: 10/24/13 Status: Ordered lisinopril 10 mg oral tablet 1 tabs, Oral, Daily, # 30 tabs, 0 Refill(s) Start Date: 10/24/13 Status: Ordered Misc Medication Calcium with vitamin D 1200mg daily, 0 Refill(s) Start Date: 03/04/16 Status: Ordered Restasis 0.05% ophthalmic emulsion 1 drops, Eye-Both, q12hr, 0 Refill(s) Start Date: 06/01/14 Status: Ordered timolol 0.25% ophthalmic solution 1 drops, Eye-Left, BID, 0 Refill(s) Start Date: 06/01/14 Status: Ordered Vitamin D3 2000 intl units oral tablet tabs, Oral, Daily, 0 Refill(s) Start Date: 10/24/13 Status: Ordered Xarelto 20 mg oral tablet 1 tabs, Oral, BID, # 30 tabs, 0 Refill(s) Start Date: 06/01/14 Status: Ordered Results No data available for this section Immunizations Vaccine Date Refusal Reason influenza virus vaccine, inactivated 03/04/16 pneumococcal 13-valent conjugate vaccine 03/04/16 Procedures Procedure Date Related Diagnosis Body Site Acid Test Esophageal1 10/24/13 Motility Esophageal2 10/24/13 Cardiac catheterization 10/25/11 Thyroidectomy 10/24/10 chole3 10/24/04 Cholecystectomy 10/18/04 Hysterectomy 10/24/70 Tonsillectomy and adenoidectomy 10/24/42 1auto-populated from documented surgical case 2auto-populated from documented surgical case 3Had gallbladder removed previously, but then had common bile duct blockage, at which time had a "replumbing". Social History Social History Type Response Smoking Status Former smoker; Type: Cigarettes; Tobacco use per day: 1 Pack ; Number of years: 25 Assessment and Plan No data available for this section
--- OUTSIDE RECORDS SUMMARY | 2016-08-26 09:13 | XMS REPORT | Referral Summary ---
Author Author [facility] Organization [facility] Address Unknown Phone Unavailable Care Team Providers Care Site Head Name Role Phone Shannan Alexander Primary Care Physician [phone] Encounter Date(s): 03/04/16 - 03/04/16 [facility] [address] [place], [place] [address] Discharge Diagnosis: Paralysis of diaphragm Discharge Diagnosis: Dyspnea Discharge Diagnosis: Obstructive sleep apnea, adult Discharge Disposition: 01-Home or Self Care Attending Physician: Spencer Barajas MD Admitting Physician: Spencer Barajas MD Vital Signs Most recent to 1 oldest [Reference Range]: Peripheral Pulse 62 bpm Rate [60-100 bpm] (03/04/16 3:54 PM) Respiratory Rate 16 br/min [14-20 br/min] (03/04/16 3:54 PM) Blood Pressure 130/80 mmHg [90-140/60-90 mmHg] (03/04/16 3:54 PM) SpO2 92 % (03/04/16 3:54 PM) Problem List Condition Effective Dates Status Health [...] Number of years: 25 Assessment and Plan Extracted from: Title: Office Visit Note Author: Spencer Barajas MD Date: 03/04/16 Assessment/Plan 1.Paralysis of diaphragm 2.Obstructive sleep apnea, adult 3.Dyspnea Need for vaccination Ordered: influenza virus vaccine, inactivated, 0.5 mL, IntraMuscular, Once, First Dose: 03/04/16 17:00:00 CDT, Stop Date: 03/04/16 17:00:00 CDT pneumococcal 13-valent conjugate vaccine, 0.5 mL, IntraMuscular, Once, First Dose: 03/04/16 17:00:00 CDT, Stop Date: 03/04/16 17:00:00 CDT The patient respiratory status is relatively stable. Sheher problems with fatigue have improved now that she's on BiPAP. The patienthas some degree of riskforrespiratory failurewith surgery,anesthesia,and pain medicationhowever the risksof significant pulmonary problemsare small. I feel the patient is stableto undergoplanned arthroscopic surgery. Follow -up evaluation pulmonary medicine clinic in one year or sooner if need be.
--- OUTSIDE RECORDS SUMMARY | 2016-08-26 09:14 | XMS REPORT | Continuity of Care Document ---
Author Author [facility] Organization [facility] Address Unknown Phone Unavailable Support Name Relationship Address Phone PIOTR DIANA MD Caregiver [facility] [address] [place] [address] ROMY SORIA DO Caregiver [address] [place] [address] [phone] VANESSA SUN Next Of Kin [address] [place] [address] Insurance Providers Payer Name Policy Number Subscriber Name Relationship Medicare [id number] Linnette Oakes [address] [facility] [id number] Linnette Oakes 18 Self Advance Directives Directive Response Recorded Date/Time Ordered Resuscitation Status Full Code 07/24/14 12:59pm Resuscitation Documents on File No 07/25/14 6:56am Chief Complaint and Reason for Visit Chief Complaint FASTING HYPOGLYCEMIA Reason for Visit Fasting hypoglycemia Prediabetes Problems Medical Problems Problem Onset Date Status [...] Acute respiratory failure with hypoxia Unknown Resolved Fasting hypoglycemia Unknown Active Prediabetes Unknown Active Surgical Problems Problem Onset Date Recorded Date/Time Status Sliding hiatal hernia Unknown 12/26/2013 5:56pm Resolved Medications Medication Dose Route Sig Days/Qty Instructions Order Date Discontinued Date Status Timolol Maleate 15 Ml OP TWICE A DAY 06/06/08 Active Metoprolol Succinate 50 Mg PO DAILY 06/06/08 03/10/11 Discontinued Acyclovir 200 Mg PO DAILY 06/06/08 Active Levothyroxine Sodium 100 Mcg PO [...] Omeprazole 40 Mg PO DAILY 10/25/12 Active Furosemide 20 Mg PO DAILY 10/25/12 01/02/14 Discontinued Pramipexole Di-HCl 1 Mg PO TWICE A DAY 12/19/13 Active Flecainide Acetate 50 Mg PO EVERY 12 HOURS 60 Qty 12/31/13 Active Rivaroxaban 1 Tab PO GIVE WITH SUPPER 30 Qty 12/31/13 Active Potassium Chloride 20 Meq PO TWICE DAILY WITH MEALS 60 Qty 01/02/14 Active [Acetaminophen With Codeine] 5-10 Ml PO Q4H PRN PAIN 01/02/14 Discontinued [Acetaminophen With Codeine] 5-10 Ml PO Q4H PRN PAIN 150 Qty 01/02/14 Active Furosemide 1 Tab PO TWICE A DAY 07/25/14 Active Social History Social History Problem Response Recorded Date/Time Chewing Tobacco Status No 02/03/2013 3:08pm Hx Substance Use No 12/19/2013 2:31pm Hx Alcohol Use Y OCCASIONALLY 12/19/2013 2:31pm Has the pt used tobacco in the last 12 months No 07/25/2014 7:47am Query Response Start Date Stop Date Smoking Status Former smoker Hospital Discharge Instructions Instructions: Care Instructions: Reason for Hospitalization: fasting hypoglycemia I was in the hospital because (patient own words): "72 hr fast" Discharge Diet: 6 small feedings daily Discharge Activity: ad hood Follow Up Appointments: already scheduled this summer Patient Instructions: Avoid sweets. Eat 6 small feedings daily. Condition at time of discharge: Good n/a Notify Physician If: fever > 101, altered mental status General Information: n/a Condition at time of discharge: Fair 12.2 Plan of Care Discharge Date 07/28/14 11:30am Disposition 01 DISCHARGED HOME, SELF-CARE Instructions/Education Provided Could You Have Prediabetes? DI for Hypoglycemia Prescriptions See Medications Section Functional Status Query Response Date Recorded Physical Hygiene Self July 28, 2014 9:47am Disabilities Visual July 28, 2014 9:47am Devices Used Glasses July 28, 2014 9:47am Dressing Self July 28, 2014 9:47am Ambulation Self July 28, 2014 9:47am Diet Self July 28, 2014 9:47am Mental Status Alert Oriented July 28, 2014 9:47am Disabilities Visual July 28, 2014 9:47am Devices Used Glasses July 28, 2014 9:47am Physical Hygiene Self July 28, 2014 9:47am Dressing Self July 28, 2014 9:47am Ambulation Self July 28, 2014 9:47am Diet Self July 28, 2014 9:47am Allergies, Adverse Reactions, Alerts Allergen Type Severity Reaction Status Last Updated Pentazocine Allergy Intermediate HALLUCINATIONS Active 11/15/11 Erythromycin base Allergy Mild NAUSEA Active 07/25/14 Immunizations Name Given Type Hx Influenza Vaccination Y MAR 2014 Historical Hx Pneumococcal Vaccination Y SEPTEMBER 12, 2010 Historical Hx Tetanus, Diptheria, Pertussis N UNCERTAIN Historical Hx Influenza Vaccination Y MAR 2014 Historical Hx Tetanus, Diptheria, Pertussis N UNCERTAIN Historical Vital Signs Acute Vital Signs Vital Response Date/Time Temperature (Fahrenheit) 96.6 deg F (96.8 - 99.1) Temperature (Calculated Celsius) 35.88366 degrees C (36.0 - 37.3) Pulse Rate (adult) 74 bpm (60 - 100) Respiratory Rate 12 breaths/min (10 - 20) Height 5 ft 7 in Weight 186 lb Body Mass Index 29.0 kg/m^2 Results Test Source Date Result Interp. Ref. Range Comments 25-Hydroxy Vitamin D Total October 13, 2012 10:27am 87 ng/mL H - The desirable level of 25-Hydroxy Vitamin D Total(D2 + D3) is 30-74 ng/mL.A level consistently >200 is potentially toxic. Vitamin D, 25-Hydroxy performed at [facility] Reference Lab, [facility] [place] [address] Underwriting Consultant Taryn Nichole MD 25-Hydroxy Vitamin D2 October [...] 0.3 % N 0-2 Blood Gas Oxygen Percent Given December 25, 2013 5:10am 50 - COMMENT CALL DR. VANESSA WITH CRITICAL VALUES Blood Urea Nitrogen January 01, 2014 4:19am [...] Calc January 01, 2014 4:19am 61 - Glucometer July 28, 2014 11:19am 156 mg/dL H 65-110 Glucose Level July 28, 2014 8:27am 64 MG/DL L 65-110 30 MIN POST GLUCAGON HDL Cholesterol Direct August 31, 2013 5:48am [...] 31, 2013 2:14pm LAB TEST FORM REQUEST [id number] - Lymphocytes # (Auto) December 31, 2013 [...] 31, 2013 4:23am 13.8 % H 0-9.0 ZQ-[id number]-Type Natriuretic Peptide September 16, 2011 2:36pm 200 [...] 4.5 ug/dL - Thyroxine (T4) performed at [facility] Reference Lab, [address] [place], [place] [id number] Underwriting Consultant Taryn Nichole MD Total Bilirubin January 01, 2014 4:19am 0.40 MG/DL N 0.20-1.30 Total Creatine Kinase August 31, 2013 5:48am 105 U/L N 30-135 Total Protein January 01, 2014 4:19am 6.2 G/DL L 6.3-8.2 Triglycerides Level August 31, 2013 5:48am 183 MG/DL H 35-135 Triiodothyonine (T3) (AWAIS) February 24, 2013 6:38am 58 ng/dL L - T3 Total performed at [facility], [address] [place], [place] [email or web address] Director Taryn Nichole MD Troponin I September [...] 2011 4:15pm NO GROWTH AFTER 5 DAYS Procedures No known history of procedures. Encounters Encounter Location Date/Time Discharged Inpatient [facility] 07/25/14 6:44am Recent Diagnosis Fasting hypoglycemia Prediabetes
[2016-08-26] MEDS ORDERED: MIDAZOLAM 2mg/2ml INJECTION ONE (10:03)
[2016-08-26 10:52] LABS: ANION GAP 11 MEQ/L (5-15); BUN/CREATININE RATIO 25 RATIO (6-26); CALCIUM 8.9 MG/DL (8.4-10.2); CHLORIDE 106 MEQ/L (98-107); CO2 - CARBON DIOXIDE 26 MEQ/L (22-30); CREATININE 0.8 MG/DL (0.7-1.2); GLOMERULAR FILTRATION RATE 70; GLUCOSE 109 MG/DL (65-110); POTASSIUM 4.5 MEQ/L (3.6-5); SODIUM 143 MEQ/L (134-144)
[2016-08-26] MEDS ORDERED: VANCOMYCIN 1 GRAM INJECTION ONE ×2 (11:21→11:38)
--- NOTE | 2016-08-26 11:51 | ANESPREOP ---
Anesthesia Record Date and Time DATE: 08/26/16 TIME: 11:48 Pre-Op Diagnosis Right knee Arthritis Proposed Surgical Procedure RT TKA NPO since: Midnight Allergies: Coded Allergies: pentazocine (Verified Allergy, Intermediate, HALLUCINATIONS, 03/20/16) Sulfa (Sulfonamide Antibiotics) (Verified Allergy, Unknown, 08/18/16) FROM H&P DATED 08-05-16 cortisone (Verified Allergy, Unknown, SWELLING, ITCHING, 08/04/16) onabotulinumtoxinA (Verified Adverse Reaction, Intermediate, SWELLING, ITCHING, 08/04/16) 08-04-16 STates reaction was from cortisone injection in knee, not Botox Presented to ED on 12/28/15 with symptoms erythromycin base (Verified Adverse Reaction, Mild, NAUSEA, 03/20/16) STATES CAN NOW TAKE IF EATS BEFORE TAKING Ht/Wt/BMI Height: 5 ' 6.50 " Weight: 83.000 kg BMI: 29.1 kg/m2 Vital Signs Date Time Temp Pulse Resp B/P Pulse Ox O2 Delivery O2 Flow Rate FiO2 08/26/16 10:02 16 08/26/16 09:37 99.1 75 147/64 92 Room Air Medications Inpatient Medications Current Medications Medications (Trade) Dose Ordered Sig/Cleo Start Time Stop Time Status Last Admin Dose Admin Lactated Ringer's (Lactated Ringers) 1,000 ml @ 50 mls/hr Q20H 08/26/16 07:00 08/26/16 10:44 50 MLS/HR Acyclovir (Zovirax) 200 Mg Capsule, 200 MG PO DAILY, (Reported) Last Taken: on 08/25/16 1000 Atorvastatin Calcium (Atorvastatin Calcium) 80 Mg Tablet, 80 MG PO HS, (Reported) Last Taken: on 08/25/160 Calcium Carbonate (Calcium) 1 Tab Tablet, 500 MG PO BID, (Reported) Last Taken: on 08/25/162199 Cholecalciferol (Vitamin D3) (Vitamin D) 2,000 Unit Tablet, 2,000 UNIT PO HS, (Reported) Last Taken: on 08/25/162199 Citalopram Hydrobromide (Citalopram HBr) 40 Mg Tablet, 40 MG PO HS, (Reported) Last Taken: on 08/25/162199 Flecainide Acetate (Flecainide Acetate) 50 Mg Tablet, 50 MG PO BID, (Reported) Last Taken: on 08/26/16 0800 Furosemide (Furosemide) 20 Mg Tablet, 1 TAB PO DAILY, (Reported) Last Taken: on 08/25/16 1000 Levothyroxine Sodium (Levothyroxine Sodium) 150 Mcg Tablet, 150 MCG PO [id number], (Reported) One tablet with breakfast everyday except Thursday and Thursday. Last Taken: on 08/24/16 Levothyroxine Sodium (Levothyroxine Sodium) 175 Mcg Tablet, 175 MCG PO ACB Thu&Thu, (Reported) Once daily before breakfast on Thursday and Thursday. Last Taken: on 08/25/16 1000 Lisinopril (Lisinopril) 10 Mg Tablet, 10 MG PO DAILY, (Reported) Last Taken: on 08/25/16 1000 Potassium Chloride (Klor-Con 8) 8 Meq Tablet, 1 TAB PO HS, (Reported) Last Taken: on 08/24/16 Rivaroxaban (Xarelto) 20 Mg Tablet, 20 MG PO HS, ( Reported) Last Taken: on 08/23/16 Timolol Maleate (Timolol Maleate) 5 Ml Drops, 1 DROP LEFT EYE DAILY, (Reported) Last Taken: on 08/26/16 0800 Currently on Beta Monty: No Medical/Surgical History Anesthesia PMH: Reports: *Diabetes ("PRE DIABETIC"), *Dyspnea (WITH EXERTION), *Hypertension (PULMONARY HTN PER H&P), Anesthesia Reactions (NO AIRWAY/ INTUBATION ISSUES KNOWN), Arthritis (RT KNEE PAIN, LOW BACK PAIN), Cardiac Arrythmia (A-FIB), Clotting Problems (ON XARELTO/ PE 2014), Deep Vein 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 smoked today?: No Use Chewing Tobacco?: No Second Hand Exposure: No Substance Use Type: does not use Alcohol Intake: rarely HX of Last Menstrual Period: HYST Past Surgical History Orthopedic Surgeries: Yes - KNEE SCOPE Abdominal Surgeries: Yes - ROSENDO-EN-Y CHOLEDOCHOJEJUNOSTOMY FOR BILE DUCT STRICTURE 02/2003 Genitourinary Surgeries: Yes - A&P BLADDER REPAIR Cardiac Surgeries: Yes - HEART CATH 2010 Endocrine Surgeries: Yes - TOTAL THYROIDECTOMY FOR FOLLICULAR ADENOMA Reproductive Surgeries: Yes - HYST, BREAST REDUCTION Neurological Surgeries: No Ear Surgeries: No Nose Surgeries: No Throat Surgeries: No Other Surgeries: Yes - A&P BLADDER REPAIR Anesthesia Adverse Reactions: FOUND none Pertinent Findings Laboratory Tests 08/26/16 10:37 EKG Rhythm: Atrial Fibrillation Physical Exam Respiratory: Lungs clear Cardiovascular: FOUND Irregularly irregular Airway Assessment Mallampati Score: II TMD: 3 Fingerbreadths Neck Extension: Fair Teeth: Upper Dentures Overall Assessment: May Be Diff Intubation ASA: 3 Plan Regional: Spinal Discussion Discussed risks/options/alternatives of anesthesia and questions answered. Patient consents. Nursing pain assessment noted. Present: Family Member Attestation Statement Prior to the delivery of any anesthetic medication, I examined the patient, developed the plan, obtained the patient's consent and discussed the risk and benefits of the procedure with the patient/guardian. VANESSA HAMILTON REHABILITATION ENGINEER Aug 26, 2016 11:51
[2016-08-26] MEDS ORDERED: PROPOFOL 500mg 50 ML IV ONE ×2 (11:58→12:25)
[2016-08-26] MEDS ORDERED: TRANEXAMIC ACID 1000 MG/10 ML TOP ONE (12:00)
[2016-08-26] MEDS ORDERED: ROPIVACAINE 0.5% (5mg/ml) 30ml INJ ONE (12:17)
[2016-08-26] MEDS ORDERED: EPINEPHRINE 1mg/ml INJECTION AMP ONE (12:58)
[2016-08-26] MEDS ORDERED: EPINEPHRINE 0.25 MG, BUPIVACAINE 0.25% 75 MG, MORPHINE SULFATE 15 MG, KETOROLAC 60 MG i... INJ ONE ×5 (13:00)
--- NOTE | 2016-08-26 13:35 | PDOPERATE ---
Operative Report Date of Operation 08/26/16 Side: Right Preoperative Diagnosis: knee primary DJD Postoperative Diagnosis Same as preoperative diagnosis. Operation/Procedure: total knee arthroplasty (right) Surgeon Sanna Medina MD Va Underwriter VIVIAN Choudhury Complications None. Regional Block: Spinal Estimated Blood Loss See Anesthesia Record. Fluids Please See Anesthesia Record. Description of Operation Ms. Vu and her right knee were identified and marked in the the preoperative holding area. She was then brought back to the operating suite and proper anesthesia was administered. She was then positioned supine on the operating table. The right lower extremity was then prepped and draped in my normal sterile fashion. Timeout was performed with all operating room personnel. The leg was exsanguinated and tourniquet inflated 250 mmHg. A standard anterior incision followed by a medial parapatellar approach was utilized. She disease in both the medial lateral compartment also full-thickness lesion on the patella. A distal femoral cut was made in 5 of valgus using intramedullary guide. The femur was sized at a 4 and rotation set using the epicondylar axis. Distal femoral cuts were performed. A proximal tibial cut was made using extramedullary guide. Remaining osteophytes and meniscus were removed. Gaps were checked and they were well balanced and rectangular but tight. I did a partial release of the PCL. I took another 2 mm off the tibial cut. Trial components were placed with a 9 mm spacer. This allowed for full range of motion and the patella tracked well. The knee was stable throughout range of motion. The tourniquet was then let down. The patella was resurfaced with the knee in extension to a size 32. The tibia rotation was then marked and the tibia stamped at the proper rotation at a size for. The bone was prepared for cementing and all components cemented into place and allowed to cure in extension. Betadine solution was used for 3 minutes during the curing period and then fully irrigated out with 1 L of normal saline. 1 g of vancomycin was placed into the wound allowed to sit for 5 minutes. After the cement had cured the knee was taken through range of motion check for balance and stability which were good. Vancomycin powder was placed into the wound. The arthrotomy was closed with #1 Vicryl. The remainder of the wound was then closed by my traffic assistant utilizing 2-0 vycral in the subcutaneous tissue. 4-0 monocryl was used in the subcuticular layer followed by dermabond and a sterile dressing. After closure the patient will be transferred to the recovery room under the care of anesthesia. ILEANA MEDINA MD Aug 26, 2016 13:35
[2016-08-26] MEDS ORDERED: DiphenhydrAMINE 25 MG CAPSULE PO PRN (14:00)
[2016-08-26] MEDS ORDERED: PRN ORDERS MC (14:00)
[2016-08-26] MEDS ORDERED: ONDANSETRON 4mg/2ml INJECTION IV PRN (14:00)
[2016-08-26] MEDS ORDERED: METOCLOPRAMIDE 10mg/2ml INJECTION IV PRN (14:00)
[2016-08-26] MEDS: NORMAL SALINE 1,000 ML IV SCH (14:00)
[2016-08-26] MEDS ORDERED: SENNOSIDES 8.6 MG TABLET PO PRN (14:00)
[2016-08-26] MEDS ORDERED: LORAZEPAM 1 MG TABLET PO PRN (14:00)
[2016-08-26] MEDS ORDERED: DiphenhydrAMINE 50 MG/ML INJECTION IV PRN (14:00)
--- NOTE | 2016-08-26 14:19 | ANESPD ---
Peripheral Nerve Blockade Physician: Monty Medina MD Date: 08/26/16 Surgical Procedure: Right Total Knee Discussion Discussed risks/options/alternatives of anesthesia and questions answered. Patient consents. Nursing pain assessment noted. Block Start: 14:14 Block Stop: 14:17 Block Employed: Adductor Canal, Single Injection Indication: post-operative pain Approach: right side confirmed Position: supine Patient: Consent, risks/benefits discussed, Informed, post block act. discussed Monitors: EKG, SpO2, NIBP IV Sedation: No Sedation: Awake Initial Vital Signs First Documented Vital Signs Date Time Temp Pulse Resp B/P Pulse Ox O2 Delivery O2 Flow Rate FiO2 08/26/16 09:37 99.1 75 14 147/64 92 Room Air Post Vital Signs Vital Signs Date Time Temp Pulse Resp B/P Pulse Ox O2 Delivery O2 Flow Rate FiO2 08/26/16 10:02 16 08/26/16 09:37 99.1 75 147/64 92 Room Air Initial Pain Score: 0 Post Block Score: 0 Prep: chlorhexadine/ETOH Ultrasound Used?: Yes (see ultrasound image in EMR) Injectate Ropivacaine (%): 0.5 Ropivacaine (mL): 20 Was Epi 1:200,000 Used?: No Injection Injection made incrementally with constant monitoring and aspiration every 5ml. VANESSA HAMILTON MOBILE QA TESTER Aug 26, 2016 13:47
--- NOTE | 2016-08-26 14:20 | ANESPO ---
Post-Op Note Date 08/26/16 Time: 14:19 Status Pt Participated in Evaluation: Pt participated in person Vital Signs Date Time Temp Pulse Resp B/P Pulse Ox O2 Delivery O2 Flow Rate FiO2 08/26/16 10:02 16 08/26/16 09:37 99.1 75 147/64 92 Room Air Respiratory Function: Airway patent Cardiovascular Function: Regular pulse Telemetry Pattern: SR Mental Status: Alert/oriented Pain Level Intensity: 0 Unable to Assess Pain Due To: Pt Sleeping Hydration: IV infusing Complications during Recovery None apparent Follow-Up Instructions Instructions Per Surgeon VANESSA HAMILTON CRNA Aug 26, 2016 14:20
--- NOTE | 2016-08-26 14:44 | DI ---
Indication: ITS.REASON: POSTOP PROCEDURE: KNEE RIGHT 2 VIEW: Encounter: Initial Comparison: Right knee MRI dated December 12, 2015 Findings: Postoperative changes of right total knee replacement are seen. There is expected postoperative subcutaneous gas. No evidence of hardware failure or acute fracture. No retained radiopaque surgical instruments or sponges. Overlying material causing artifact. Impression: New right total knee prosthesis without evidence of immediate complication. .
--- NOTE | 2016-08-26 15:00 | NUR ---
ADMIT PATIENT IS ADMITTED TO ROOM 108 AT THIS TIME. PATIENT IS ALERT AND ORIENTED X3. PATIENT WAS MOVED FROM OR CART TO BED VIA SLIDE BOARD. FAMILY AT BEDSIDE. WILL CONTINUE TO MONITOR.
[2016-08-26] MEDS: NOZIN NASAL SWAB NS SCH ×2 (15:26→21:02)
[2016-08-26] MEDS: OXYCODONE I.R. 5 MG TABLET PO PRN ×2 (16:18→22:51)
[2016-08-26] MEDS: ACETAMINOPHEN 325 MG TABLET PO SCH ×2 (16:46→20:58)
[2016-08-26] MEDS: RIVAROXABAN 20 MG TABLET PO SCH (17:30)
--- NOTE | 2016-08-26 18:49 | NUR ---
SHIFT SUMMARY PATIENT IS ALERT AND ORIENTED X3. PATIENT VITALS ARE STABLE AND PATIENT IS ON 2L VIA NC. PATIENT AMBULATED WITH PT 1X. PATIENT HAS REQUIRED 1X PRN PO PAIN MEDICATION. PATIENT DENIES NAUSEA, SOA, AND CP. PATIENT IS UP WITH 1X ASSIST, GB AND FWW. PATIENT DRESSING IS CLEAN DRY AND INTACT. FAMILY AT BEDSIDE WILL CONTINUE TO MONITOR.
[2016-08-26] MEDS: CEFAZOLIN 2 G in NORMAL SALINE 100 ML IV SCH (20:47)
[2016-08-26] MEDS: CALCIUM 500 MG TABLET PO SCH (20:56)
[2016-08-26] MEDS: FLECAINIDE 50 MG TABLET PO SCH (20:57)
[2016-08-26] MEDS: ATORVASTATIN 40 MG TABLET PO SCH (21:00)
[2016-08-26] MEDS: POTASSIUM CHLORIDE 10 MEQ TABLET PO SCH (21:01)
[2016-08-26] MEDS: SENNOSIDES 8.6 MG TABLET PO SCH (21:01)
[2016-08-27] MEDS: NORMAL SALINE 1,000 ML IV SCH ×3 (00:25→22:56)
[2016-08-27 00:47] VITALS: BP 106/55; PULSE 79; RESP 13; TEMP 96; O2SAT 94
--- NOTE | 2016-08-27 01:37 | NUR ---
Chart Check 24 hour chart check completed
[2016-08-27 04:16] VITALS: BP 102/58; PULSE 83; RESP 16; TEMP 96.4; O2SAT 94
[2016-08-27] MEDS: CEFAZOLIN 2 G in NORMAL SALINE 100 ML IV SCH (04:18)
[2016-08-27 05:25] LABS: ANION GAP 11 MEQ/L (5-15); BUN/CREATININE RATIO 22 RATIO (6-26); CALCIUM 8.3 MG/DL (8.4-10.2); CHLORIDE 108 MEQ/L (98-107); CO2 - CARBON DIOXIDE 22 MEQ/L (22-30); CREATININE 1.1 MG/DL (0.7-1.2); GLOMERULAR FILTRATION RATE 48; GLUCOSE 132 MG/DL (65-110); HCT - HEMATOCRIT 33.5 % (36-46); HGB - HEMOGLOBIN 10.4 GM/DL (12-16); MEAN CORPUSCULAR VOLUME 99.7 UM3 (80-100); MEAN PLATELET VOLUME 10.7 UM3 (9.4-12.4); POTASSIUM 4.5 MEQ/L (3.6-5); RED BLOOD COUNT 3.36 M/MM3 (4.00-5.20); SODIUM 141 MEQ/L (134-144); WBC - WHITE BLOOD COUNT 12.2 T/MM3 (4.5-11.0)
[2016-08-27] MEDS: NOZIN NASAL SWAB NS SCH ×3 (06:15→21:19)
[2016-08-27] MEDS: LEVOTHYROXINE 150 MCG TABLET PO SCH (06:15)
--- NOTE | 2016-08-27 06:41 | NUR ---
STATUS PATIENT ALTER AND ORIENTED X3. PATIENT C/O PAIN RT KNEE.PRN ROXICODONE AND ACTIVIN WAS GIVEN. PATIENT HAD VOIDED ONE SMALL AMOUNT OF URINE. BLADDER SCAN AMOUNT 212 ML. PATIENT DENIES DISCOMFORT.PATIENT STATED " I HAD VOIDED 3 TIMES AT PREOP YESTERDAYS."PATIENT WILL TRY TO VOID LATER . PATIENT IS UP ONE ASSIST WITH WALKER. DENIES CHEST PAIN,SOA,OR N/V. 2L O2 VIA NC DUE TO SPO2 DROP PER TELE MONITOR REPORTED.POLAR PAD USED. CALL LIGHT WITHIN REACH.CONTINUE TO MONITOR.
[2016-08-27] MEDS: ACYCLOVIR 200 MG CAPSULE PO SCH (08:16)
[2016-08-27] MEDS: FLECAINIDE 50 MG TABLET PO SCH ×2 (08:16→21:19)
[2016-08-27] MEDS: ACETAMINOPHEN 325 MG TABLET PO SCH ×4 (08:17→21:21)
[2016-08-27] MEDS: DOCUSATE SODIUM 100 MG CAPSULE PO SCH ×2 (08:18→21:21)
[2016-08-27] MEDS: CALCIUM 500 MG TABLET PO SCH ×2 (08:18→21:20)
[2016-08-27] MEDS: TIMOLOL 0.5% EYE DROPS 5ml LEFT EYE SCH (08:19)
[2016-08-27] MEDS: POLYETHYL.GLYCOL 3350 PACKET 17gm PO SCH (08:19)
--- NOTE | 2016-08-27 08:35 | PDORTHOPN ---
Subjective Date DATE: 08/27/16 TIME: 08:25 Subjective Linnette is doing well this AM. She has been up with good tolerance. No SOA reported. She is on oxygen. She has a paralyzed barbara diaphragm and NATACHA. Her knee pain is well controlled while at rest. Urination has been a little difficult but bladder scan does not show significant retention. BUN and Creat were 20 / 0.8 pre op and are 24 / 1.1 this AM. Objective Vital Signs Vital signs Vital Signs 08/27/16 08/27/16 00:47 04:16 Temp 96.0 96.4 Pulse 79 83 Resp 13 16 B/P 106/55 102/58 Pulse Ox 94 94 O2 Delivery Nasal Cannula Nasal Cannula O2 Flow Rate 2.50 2.50 Height (Feet): 5 Height (Inches): 6.50 Weight (Kilograms): 83.000 General General Appearance: No Acute Distress Respiratory (Brief) Respiratory Brief: FOUND: non-labored Cardiovascular (Brief) Cardiac: FOUND: calf easily compressible, calf soft, nontender, pedal pulses intact Surgical Site Incision: FOUND: Mepilex dressing intact, no drainage Neurologic (Brief) Neurological Brief: FOUND: extremities w/o deficits, neuro intact Psychiatric (Brief) Psychiatric Brief: FOUND: alert, no acute distress Laboratory Laboratory Laboratory Tests 08/27/16 04:19 Laboratory Tests 08/26/16 10:37 08/27/16 04:19 Assessment & Plan Problems: (1) Degenerative arthritis of right knee Status: Chronic Qualifiers: Osteoarthritis type: primary Qualified Codes: M17.11 - Unilateral primary osteoarthritis, right knee Assessment & Plan: x Resume Xarelto for atrial fib and VTE prophylaxis. SCD's and mobilization for additional DVT coverage. Wean O2 as tolerated. 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 Cont IVF for renal changes. Recheck labs this afternoon. Bladder scan prn and insert Portillo if she has trouble urinating. PT/OT services to improve independent function. Discharge Planning per Case Management. Pt plans to go home with home health. She will have a son living with her for a week. (2) Diabetes Status: Chronic Assessment & Plan: Monitor. Carb restricted diet. (3) Sleep apnea Status: Chronic (4) Paralyzed hemidiaphragm Status: Chronic (5) Paroxysmal atrial fibrillation Status: Chronic Assessment & Plan: Resume meds and Xarelto. Hospital Course Summary Disclaimer The visit summary below is not to be considered part of the above Progress Note. HAILEY MARINO Aug 27, 2016 08:29
--- NOTE | 2016-08-27 08:52 | NUR ---
DUANE CM IN TO VISIT WITH PT. SHE IS ALERT AND ORIENTED. SHE PLANS TO DC HOME WITH [facility]. HER SONS WILL BE STAYING WITH HER. SHE DOES NOT HAVE FWW. SHE REQUESTS ONE BE ORDERED FROM [facility]. LACE SCORE IS 6. PT IS GIVEN CM CONTACT INFORMATION. Addendum: 08/27/16 at 0853 by SHAWN WALKER RN Amended: Links added.
[2016-08-27] MEDS ORDERED: FUROSEMIDE 20 MG TABLET PO SCH (09:00)
[2016-08-27] MEDS ORDERED: LISINOPRIL 10 MG TABLET PO SCH (09:00)
--- NOTE | 2016-08-27 10:30 | NUR ---
RODRIGUEZ INSERTION RODRIGUEZ INSERTED BY CHANDRIKA HURST, BRANT DORANTES STUDENT WITH ASSISTANCE FROM THIS RN. STERILE TECHNIQUE USED. 16 POLISH RODRIGUEZ INSERTED WITH IMMEDIATE RETURN OF CLEAR, YELLOW URINE. PATIENT DID NOT C/O PAIN DURING INSERTION. WILL CONTINUE TO MONITOR.
[2016-08-27] MEDS: OXYCODONE I.R. 5 MG TABLET PO PRN ×2 (10:47→21:20)
[2016-08-27 11:47] VITALS: BP 100/55; PULSE 80; RESP 16; TEMP 98; O2SAT 90
[2016-08-27] MEDS ORDERED: POLY17PO18 PO (13:29)
[2016-08-27] MEDS ORDERED: ACET-2321 PO (13:29)
[2016-08-27] MEDS ORDERED: OXYC5TAB84 PO (13:29)
[2016-08-27 14:26] LABS: ANION GAP 10 MEQ/L (5-15); BUN/CREATININE RATIO 22 RATIO (6-26); CALCIUM 8.4 MG/DL (8.4-10.2); CHLORIDE 108 MEQ/L (98-107); CO2 - CARBON DIOXIDE 21 MEQ/L (22-30); CREATININE 1.2 MG/DL (0.7-1.2); GLOMERULAR FILTRATION RATE 44; GLUCOSE 104 MG/DL (65-110); POTASSIUM 4.7 MEQ/L (3.6-5); SODIUM 139 MEQ/L (134-144)
[2016-08-27] MEDS ORDERED: NORMAL SALINE 500 ML IV ONE (14:45)
--- NOTE | 2016-08-27 15:05 | PDORTHOPN ---
Subjective Date DATE: 08/27/16 TIME: 15:02 Subjective Pressures continue to be a little low Creat increased to 1.2 from 0.8 UO is low. Objective Vital Signs Vital signs Vital Signs 08/27/16 08/27/16 04:16 11:47 Temp 96.4 98.0 Pulse 83 80 Resp 16 16 B/P 102/58 100/55 Pulse Ox 94 90 O2 Delivery Nasal Cannula Nasal Cannula O2 Flow Rate 2.50 2.00 Height (Feet): 5 Height (Inches): 6.50 Weight (Kilograms): 86.300 Laboratory Laboratory Laboratory Tests 08/27/16 04:19 Laboratory Tests 08/26/16 10:37 08/27/16 04:19 08/27/16 13:52 Assessment & Plan Problems: (1) Degenerative arthritis of right knee Status: Chronic Qualifiers: Osteoarthritis type: primary Qualified Codes: M17.11 - Unilateral primary osteoarthritis, right knee Assessment & Plan: x Resume Xarelto for atrial fib and VTE prophylaxis. SCD's and mobilization for additional DVT coverage. Wean O2 as tolerated. 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 Cont IVF for renal changes. Recheck labs this afternoon. Bladder scan prn and insert Portillo if she has trouble urinating. PT/OT services to improve independent function. Discharge Planning per Case Management. Pt plans to go home with home health. She will have a son living with her for a week. Portillo inserted earlier today. I will give 500cc IV bolus over 2 hrs and consult hospitalist for mgmt. (2) Diabetes Status: Chronic Assessment & Plan: Monitor. Carb restricted diet. (3) Sleep apnea Status: Chronic (4) Paralyzed hemidiaphragm Status: Chronic (5) Paroxysmal atrial fibrillation Status: Chronic Assessment & Plan: Resume meds and Xarelto. Hospital Course Summary Disclaimer The visit summary below is not to be considered part of the above Progress Note. HAILEY MARINO Aug 27, 2016 15:04
[2016-08-27] MEDS ORDERED: ALBUTEROL/IPRATROPIUM INHAL. 2.5mg-0.5mg/3ml Neb. AEROSOL PRN (16:15)
--- NOTE | 2016-08-27 16:15 | CONSPD ---
CHELSIE WILLETT APRN 08/27/16 1535: Consultation Info Date DATE: 08/27/16 TIME: 15:31 Date of Consultation: Aug 27, 2016 Attending Physician: Dr. Medina Reason for Consultation: Low blood pressure HPI - Adult Date DATE: 08/27/16 TIME: 15:31 General Chief Complaint: Hypotension History of Present Illness Linnette Vu is a 75 y/o woman seen in consultation from Mor Chapman PA-C for hypotension. She underwent elective Rt TKA on 08/26/16 after failing conservative treatment. She reports that she had been in her typical state of health prior to sx - no f/c, URI sx, CP, dyspnea at rest (chronic dyspnea with exertion), abd pain or GI complaints, urinary problems, leg swelling. She reports a fall about a week ago after tripping at a family member's house - she hurt her left knee and since she's on Xarelto it resulted in significant left lower ext bruising. Since sx, BP have gradually declined, and as of 08/27/16 BP was 100/55 but last night SBP was in the 90s. Her son reports that she is dizzy, lethargic , and has occasional slurred speech. He even saw her fall asleep while eating. She denies nausea - but no appetite either (hasn't eaten anything since the night before sx). She's been hypoxic, and nurses report that her oxygen saturation dropped to 78% while on room air earlier today. Past Medical History Past Medical History Patient's Medical History: (1) Hypothyroidism Permanent Comment: S/P thyroidectomy Last Edited By: Chelsie Willett on Aug 27, 2016 16:00 (2) Hypertension (3) Diabetes Permanent Comment: Prediabetes Last Edited By: Chelsie Willett on Aug 27, 2016 15:33 (4) Glaucoma, left eye (5) Sleep apnea Permanent Comment: BiPAP Last Edited By: Chelsie Willett on Aug 27, 2016 15:33 (6) Paroxysmal atrial fibrillation (7) Paralyzed hemidiaphragm (8) Hyperlipemia (9) Pulmonary hypertension (10) Osteopenia (11) Obesity (BMI 30-39.9) (12) Restless leg syndrome Surgical History Patient's Surgical History: 08/27/16 - Rt knee arthroplasty (Dr. Medina) 03/20/16 - Rt knee arthroscopy, PMM, PLM (Dr. Medina) 12/22/13 - Robotic hiatal hernia repair with mesh reinforcement; Robotic Castillo fundoplication; lysis of adhesions (Dr. Yung) 02/04/13 - Phacoemulsification with implantation of intraocular lens right eye (Dr. Martinez) 10/26/12 - EGD - Large sliding hiatal hernia (Dr. 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 (Dr. Gentile) 06/06/08 - B/L reduction mammoplasty (Dr. 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 08/05/16 Acyclovir (Zovirax) 200 Mg Capsule, 200 MG PO DAILY, CAP 08/04/16 Timolol Maleate (Timolol Maleate) 5 Ml Drops, 1 DROP LEFT EYE DAILY 08/04/16 Potassium Chloride (Klor-Con 8) 8 Meq Tablet, 1 TAB PO HS 08/04/16 Furosemide (Furosemide) 20 Mg Tablet, 1 TAB PO DAILY 08/04/16 Atorvastatin Calcium (Atorvastatin Calcium) 80 Mg Tablet, 80 MG PO HS 10/28/15 Lisinopril (Lisinopril) 10 Mg Tablet, 10 MG PO DAILY 10/28/15 Rivaroxaban (Xarelto) 20 Mg Tablet, 20 MG PO HS 10/28/15 Levothyroxine Sodium (Levothyroxine Sodium) 150 Mcg Tablet, 150 MCG PO SuTuWeThSa One tablet with breakfast everyday except Thursday and Thursday. 10/28/15 Flecainide Acetate (Flecainide Acetate) 50 Mg Tablet, 50 MG PO BID 10/28/15 Cholecalciferol (Vitamin D3) (Vitamin D) 2,000 Unit Tablet, 2000 UNIT PO HS 10/28/15 Citalopram Hydrobromide (Citalopram HBr) 40 Mg Tablet, 40 MG PO HS 10/28/15 Calcium Carbonate (Calcium) 1 Tab Tablet, 500 MG PO BID 06/06/08 Allergies: Coded Allergies: pentazocine (Verified Allergy, Intermediate, HALLUCINATIONS, 03/20/16) Sulfa (Sulfonamide Antibiotics) (Verified Allergy, Unknown, 08/18/16) FROM H&P DATED 08-05-16 cortisone (Verified Allergy, Unknown, SWELLING, ITCHING, 08/04/16) onabotulinumtoxinA (Verified Adverse Reaction, Intermediate, SWELLING, ITCHING, 08/04/16) 08-04-16 STates reaction was from cortisone injection in knee, not Botox Presented to ED on 12/28/15 with symptoms erythromycin base (Verified Adverse Reaction, Mild, NAUSEA, 03/20/16) STATES CAN NOW TAKE IF EATS BEFORE TAKING Family History Family History: Thyroid disase, stroke, diabetes, dyslipidemia Cancer - bladder, brain, stomach, glandular Social History Smoking Status: Former smoker (quit in 1990) Does patient use chewing tobac: No # of Packs/Tins per Day: 1 # of Years: 25 Second Hand Exposure: No Substance Use Type: does not use Alcohol Intake: occasionally Marital Status: Advance Directives: No DPOA for Healthcare Only Social History Comments PCP - Dr. Alexander Review of Systems Constitutional: DENIES: chills, fever Eyes Vision: REPORTS: other (suspect glaucoma left) ENMT Sinuses: NOT FOUND: congestion, rhinorrhea Mouth/Throat: DENIES: sore throat Cardiovascular dyspnea on exertion, DENIES: chest pain Pulmonary Respiratory: DENIES: cough GI Upper Abdomen: DENIES: nausea, vomiting Lower Abdomen: DENIES: diarrhea General: other (per RN - foul smelling, dark) Musculoskeletal General: joint pain Integumentary Skin: DENIES: rash Neurological General: weakness Psychiatric Psychiatric: DENIES: memory impairment Hematologic/Lymphatic DENIES: anemia All Other Systems All Other Systems: Reviewed (remainder of 10-point ROS Neg.) Physical Exam General General Nourishment: well nourished, well developed, thin General Body Habitus: well groomed Vital Signs Vital Signs Date Time Temp Pulse Resp B/P Pulse Ox O2 Delivery O2 Flow Rate FiO2 08/27/16 11:47 98.0 80 16 100/55 90 Nasal Cannula 2.00 Height (Feet): 5 Height (Inches): 6.50 Eyes Brief: FOUND: PERRL, NOT FOUND: scleral icterus ENMT Brief: FOUND: mucosa moist, NOT FOUND: pharnyx erythema Neck Brief: NOT FOUND: adenopathy, nuchal rigidity Respiratory Auscultation: FOUND: rales (RLL), NOT FOUND: rhonchi, wheezes Cardiovascular Auscultation: FOUND: S1, S2, regular Peripheral Pulses: 2+: Dorasalis Pedis (L), Dorsalis Pedis (R), Posterior Tibial (L), Posterior Tibial (R), Radial (L), Radial (R) Edema: 0: Anasarca, Arm (L), Arm (R), Face, Leg (L), Leg (R) Abdomen Inspection: NOT FOUND: distention Palpation: FOUND: soft, NOT FOUND: involuntary guarding, rebound, tender, voluntary guarding Auscultation: FOUND: hypoactive Lymphatic (brief) Lymphatic Brief: NOT FOUND: adenopathy Integumentary (brief) Integumentary Brief: FOUND: dry, warm Comments significant ecchymosis to left lower leg/mild swelling to left knee - had a fall about a week ago (she was in an unfamiliar environment and tripped) Integumentary General: FOUND: dry, warm Color: FOUND: pink Neurologic (brief) Neurological Brief: FOUND: cranial 2-12 intact (grossly) Neurologic GCS Eye Opening: (4)Spontaneous GCS Verbal: (5)Oriented GCS Motor: (6)Obeys Commands RN Documented GCS Total: 15 Psychiatric (brief) FOUND: alert, attentive, normal affect, oriented Laboratory Laboratory Tests Test 08/26/16 10:37 08/27/16 04:19 08/27/16 13:52 Turbidity < 20 < 20 < 20 Sodium Level 143MEQ/L 141MEQ/L 139MEQ/L Potassium Level 4.5MEQ/L 4.5MEQ/L 4.7MEQ/L Chloride Level 106MEQ/L 108MEQ/L 108MEQ/L Carbon Dioxide Level 26MEQ/L 22MEQ/L 21MEQ/L Anion Gap 11MEQ/L 11MEQ/L 10MEQ/L Blood Urea Nitrogen 20.0MG/DL 24.0MG/DL 26.0MG/DL Creatinine 0.8MG/DL 1.1MG/DL 1.2MG/DL Glomerular Filtration Rate Calc 70 48 44 BUN/Creatinine Ratio 25RATIO 22RATIO 22RATIO Glucose Level 109MG/DL 132MG/DL 104MG/DL Calculated Osmolality 279MOSM/KG 277MOSM/KG 273MOSM/KG Calcium Level 8.9MG/DL 8.3MG/DL 8.4MG/DL Icterus Index < 2 < 2 < 2 Chemistry Specimen Hemolysis < 15 20 32 White Blood Count 12.2T/MM3 Red Blood Count 3.36M/MM3 Hemoglobin 10.4GM/DL Hematocrit 33.5% Mean Corpuscular Volume 99.7UM3 Mean Corpuscular Hemoglobin 31.0UUG Mean Corpuscular Hemoglobin Concent 31.0GM/DL RDW Standard Deviation 49.2FL Platelet Count 205T/MM3 Mean Platelet Volume 10.7UM3 Impression/Recommendation Problems: (1) Hypoxia Status: Acute (2) Hypotension Status: Acute Qualifiers: Hypotension type: other hypotension type Qualified Codes: I95.89 - Other hypotension (3) Leukocytosis Status: Acute (4) Hypothyroidism Status: Chronic (5) Hypertension Status: Chronic (6) Degenerative arthritis of right knee Status: Chronic Qualifiers: Osteoarthritis type: primary Qualified Codes: M17.11 - Unilateral primary osteoarthritis, right knee (7) Restless leg syndrome Status: Chronic (8) Diabetes Status: Chronic Assessment & Plan: Prediabetes (9) Paroxysmal atrial fibrillation Status: Chronic (10) Sleep apnea Status: Chronic Assessment & Plan: BiPAP (11) Paralyzed hemidiaphragm Status: Chronic (12) Hyperlipemia Status: Chronic (13) Pulmonary hypertension Status: Chronic (14) Obesity (BMI 30-39.9) Status: Chronic Impression 75 y/o female, POD #2 TKA; postop hypotension, oliguria, and hypoxia Recommendation Hypotension - Agree with 500 mL bolus; after this will continue NS at 125 mL/hr. Increasing BUN/Cr/oliguria - IVF; agree with holding Lisinopril and Lasix. Malodorous urine per RN - check UA. Portillo was inserted today. Hypoxia and RLL rales - sats dropped to 78% on room air. Will obtain CXR. Continue IS. DuoNeb PRN. 25 pack year smoking hx. Leukocytosis - suspect stress rxn - recheck in am. Hx A-fib - flecainide and Xarelto. Drowsiness - agree with decreasing oxycodone dose. Thank you for this consultation. We will follow Mrs. Vu along with you during her hospital course. BARRY GUTIERREZ MD 08/27/161905: Past Medical History Current Medications Home Meds Active Scripts Polyethylene Glycol 3350 (Healthylax) 17 Gm Powd.pack, 17 G PO DAILY, #30 PACKET Prov:АНДРЕЙ AMIN 08/27/16 Oxycodone HCl (Oxycodone HCl) 5 Mg Tablet, 5-15 MG PO Q3H Y for BREAKTHROUGH PAIN, #60 TAB Prov:АНДРЕЙ AMIN 08/27/16 Acetaminophen (Tylenol) 325 Mg Tablet, 650 MG PO QID, #100 TAB Prov:АНДРЕЙ AMIN 08/27/16 Reported Medications Levothyroxine Sodium (Levothyroxine Sodium) 175 Mcg Tablet, 175 MCG PO ACB Mon& Fri, TAB Once daily before breakfast on Thursday and Thursday. 08/05/16 Acyclovir (Zovirax) 200 Mg Capsule, 200 MG PO DAILY, CAP 08/04/16 Timolol Maleate (Timolol Maleate) 5 Ml Drops, 1 DROP LEFT EYE DAILY 08/04/16 Potassium Chloride (Klor-Con 8) 8 Meq Tablet, 1 TAB PO HS 08/04/16 Furosemide (Furosemide) 20 Mg Tablet, 1 TAB PO DAILY 08/04/16 Atorvastatin Calcium (Atorvastatin Calcium) 80 Mg Tablet, 80 MG PO HS 10/28/15 Lisinopril (Lisinopril) 10 Mg Tablet, 10 MG PO DAILY 10/28/15 Rivaroxaban (Xarelto) 20 Mg Tablet, 20 MG PO HS 10/28/15 Levothyroxine Sodium (Levothyroxine Sodium) 150 Mcg Tablet, 150 MCG PO SuTuWeThSa One tablet with breakfast everyday except Thursday and Thursday. 10/28/15 Flecainide Acetate (Flecainide Acetate) 50 Mg Tablet, 50 MG PO BID 10/28/15 Cholecalciferol (Vitamin D3) (Vitamin D) 2,000 Unit Tablet, 2000 UNIT PO HS 10/28/15 Citalopram Hydrobromide (Citalopram HBr) 40 Mg Tablet, 40 MG PO HS 10/28/15 Calcium Carbonate (Calcium) 1 Tab Tablet, 500 MG PO BID 06/06/08 Allergies: Coded Allergies: pentazocine (Verified Allergy, Intermediate, HALLUCINATIONS, 03/20/16) Sulfa (Sulfonamide Antibiotics) (Verified Allergy, Unknown, 08/18/16) FROM H&P DATED 08-05-16 cortisone (Verified Allergy, Unknown, SWELLING, ITCHING, 08/04/16) onabotulinumtoxinA (Verified Adverse Reaction, Intermediate, SWELLING, ITCHING, 08/04/16) 08-04-16 STates reaction was from cortisone injection in knee, not Botox Presented to ED on 12/28/15 with symptoms erythromycin base (Verified Adverse Reaction, Mild, NAUSEA, 03/20/16) STATES CAN NOW TAKE IF EATS BEFORE TAKING Impression/Recommendation Problems: (1) Hypoxia Status: Acute (2) Leukocytosis Status: Acute (3) Hypotension Status: Acute Qualifiers: Hypotension type: other hypotension type Qualified Codes: I95.89 - Other hypotension (4) Acute kidney injury Status: Acute Assessment & Plan: Creatinine up slightly in conjunction with decreased urine output (5) Anemia following surgery Status: Acute Assessment & Plan: Preoperative hemoglobin 12.1 on 07/30 (6) Restless leg syndrome Status: Chronic (7) Hypothyroidism Status: Chronic (8) Hypertension Status: Chronic (9) Degenerative arthritis of right knee Status: Chronic Qualifiers: Osteoarthritis type: primary Qualified Codes: M17.11 - Unilateral primary osteoarthritis, right knee (10) Diabetes Status: Chronic Assessment & Plan: A1c 6.0 on 08/06/16 (11) Paroxysmal atrial fibrillation Status: Chronic (12) Sleep apnea Status: Chronic (13) Paralyzed hemidiaphragm Status: Chronic (14) Hyperlipemia Status: Chronic (15) Pulmonary hypertension Status: Chronic (16) Obesity (BMI 30-39.9) Status: Chronic Impression I have independently evaluated and examined this patient. I reviewed the chart, the patient's history, and the MEDICAL SECRETARY's documented findings as above. We discussed and formulated the assessment and plan as above with additions as below: Mrs. Vu was seen with her son at the bedside. She describes minimal lightheadedness but poor oral intake since surgery. She has been able to ambulate and walk well with physical therapy earlier today. She describes excess somnolence last night and earlier today which made contributed to impaired by mouth. Preoperatively hemoglobin was 12.1 and creatinine 0.81. Bump in creatinine was noted this morning in conjunction with low normal blood pressures and poor urine output. Patient has required low-flow oxygen since surgery. On examination the patient is slightly drowsy but cooperative; she is able to provide historical information. Most recent blood pressure was improved at 127/ 62 following fluid bolus. Breath sounds are diminished at the left base but lungs are otherwise clear and respirations are nonlabored. Cardiac rhythm regular and extremities without edema. Sensation intact 4 extremities and the patient is moving all extremities spontaneously. Moderate bruising present medial distal left thigh. Labs as noted above, chest x-ray reviewed by myself demonstrating elevated left hemidiaphragm but no acute pathology. Outpatient labs reviewed and as noted above. Agree with reduction in narcotics to minimize somnolence and permit improved oral intake, continuation of IV fluids as dehydration probable cause of increased creatinine/decreased urine output/decreased blood pressure. Anticipate resolution of hypoxia with increased physical activity and as patient is more alert and taking deeper breaths. Continue incentive spirometer. Home antihypertensive regimen and furosemide to be held pending stabilization of blood pressure. Mild anemia present, consistent with postoperative state. Recommendation Chest x-ray reviewed by myself, outpatient records/labs reviewed. Discussed with orthopedics. Laboratory data reviewed. CHELSIE WILLETT APRN Aug 27, 2016 15:35 BARRY GUTIERREZ MD Aug 27, 2016 19:06
[2016-08-27 16:30] VITALS: BP 127/62; PULSE 85; RESP 15; TEMP 96.5; O2SAT 94
--- NOTE | 2016-08-27 16:54 | DI ---
Indication: ITS.REASON: hypoxia, RLL crackles PROCEDURE: CHEST 1 VIEW: Encounter: Initial Comparison: August 06, 2016 Findings: Chronic elevation of the left hemidiaphragm. Right lung appears grossly clear. No focal consolidation seen on the left. No pneumothorax or pleural effusion. Heart size and mediastinal contours are stable. Pulmonary vascularity appears normal. Impression: No pneumonia. .
[2016-08-27 17:05] LABS: BLOOD, URINE 3+ (NEGATIVE); COLOR,URINE YELLOW (YELLOW); LEUKOCYTE ESTERASE ,URINE NEGATIVE (NEGATIVE); NITRITE,URINE NEGATIVE (NEGATIVE); UROBILINOGEN,URINE 0.2 EU/DL (NORMAL)
[2016-08-27 17:11] LABS: RBC,URINE TNTC /HPF (0-3); WBC,URINE NONE SEEN /HPF (0-5)
[2016-08-27 17:12] LABS: BACTERIA,URINE NONE SEEN (NEGATIVE)
[2016-08-27] MEDS: RIVAROXABAN 20 MG TABLET PO SCH (17:30)
--- NOTE | 2016-08-27 18:23 | NUR ---
END OF SHIFT REPORT PATIENT A/OX3. VITAL SIGNS STABLE. AFEBRILE. PATIENT CURRENTLY ON 2 LITERS O2 VIA NASAL CANNULA. DENIES N/V, CHEST PAIN, AND SOA. PAIN HAS BEEN CONTROLLED WITH PRN YURY AND SCHEDULED TYLENOL. VIVIAN NICOLE LOWERED DOSE OF YURY DUE TO PATIENT BECOMING SLIGHTLY CONFUSED AFTER TAKING THEM AND FALLING ASLEEP WITH FOOD IN HER MOUTH. PATIENT AND THIS RN AGREED TO ONLY TAKE THE YURY IF NECESSARY. PT UP WITH ASSIST X1, GB, AND WALKER. NO BM DURING THE SHIFT. DRESSING CLEAN, DRY, INTACT. WILL CONTINUE TO MONITOR.
[2016-08-27 20:08] VITALS: BP 143/78; PULSE 88; RESP 16; TEMP 97.3; O2SAT 93
[2016-08-27] MEDS: SENNOSIDES 8.6 MG TABLET PO SCH (21:20)
[2016-08-27] MEDS: POTASSIUM CHLORIDE 10 MEQ TABLET PO SCH (21:22)
[2016-08-27] MEDS: ATORVASTATIN 40 MG TABLET PO SCH (21:25)
[2016-08-28] VITALS (9 sets, daily range): BP systolic 122–151; BP diastolic 54–67; PULSE 56–100; RESP 15–22; TEMP 95.5–99.5; O2SAT 91–98
[2016-08-28] MEDS: OXYCODONE I.R. 5 MG TABLET PO PRN ×6 (01:21→23:57)
--- NOTE | 2016-08-28 05:07 | NUR ---
SHIFT SUMMARY PATIENT IS ALERT AND ORIENTED X3. VITALS SIGNS STABLE ON 2L NC. PATIENT IS NOT ON O2 AT HOME, BUT HAS BEEN UNABLE TO BE WEANED TO RA. PATIENT AMBULATES WITH ASSIST X1, GAIT BELT, AND WALKER. PATIENT CONTINUES TO HAVE DECREASED URINE OUTPUT FROM [facility]. PROVIDER WAS NOTIFIED PREVIOUSLY. PATIENT PO PAIN MEDICATION WAS DECREASED PREVIOUS SHIFT DUE TO LOC ISSUES; PAIN HAS BEEN RELATIVELY CONSTANT THIS SHIFT. WILL CONTINUE TO MONITOR.
[2016-08-28 05:45] LABS: ANION GAP 10 MEQ/L (5-15); BUN/CREATININE RATIO 25 RATIO (6-26); CALCIUM 8.1 MG/DL (8.4-10.2); CHLORIDE 106 MEQ/L (98-107); CO2 - CARBON DIOXIDE 22 MEQ/L (22-30); CREATININE 0.8 MG/DL (0.7-1.2); GLOMERULAR FILTRATION RATE 70; GLUCOSE 111 MG/DL (65-110); POTASSIUM 4.4 MEQ/L (3.6-5); SODIUM 138 MEQ/L (134-144)
[2016-08-28 05:47] LABS: BASOPHILS % (AUTO) 0.2 % (0-2); EOSINOPHILS # (AUTO) 0.1 T/MM3 (0-0.5); EOSINOPHILS % (AUTO) 1.4 % (0-4); HCT - HEMATOCRIT 26.6 % (36-46); HGB - HEMOGLOBIN 8.6 GM/DL (12-16); IMMATURE GRANULOCYTE # (AUTO) 0.02 T/MM3 (0.00-0.03); IMMATURE GRANULOCYTE % (AUTO) 0.2 % (0.0-0.5); LYMPHOCYTES % (AUTO) 19.8 % (23-45); MEAN CORPUSCULAR HGB 31.5 UUG (26-34); MEAN CORPUSCULAR HGB CONC(MCHC 32.3 GM/DL (31-37); MEAN CORPUSCULAR VOLUME 97.4 UM3 (80-100); MEAN PLATELET VOLUME 10.5 UM3 (9.4-12.4); MONOCYTES # (AUTO) 1.7 T/MM3 (0-0.8); MONOCYTES % (AUTO) 16.5 % (0-9.0); NEUTROPHILS #(AUTO)-ABSOLUTE 6.2 T/MM3 (1.8-7.7); NEUTROPHILS % (AUTO) 61.9 % (33-66); RED BLOOD COUNT 2.73 M/MM3 (4.00-5.20)
[2016-08-28] MEDS: LEVOTHYROXINE 150 MCG TABLET PO SCH (05:59)
[2016-08-28] MEDS: NOZIN NASAL SWAB NS SCH ×3 (05:59→21:39)
[2016-08-28] MEDS: NORMAL SALINE 1,000 ML IV SCH (07:11)
--- NOTE | 2016-08-28 07:30 | PDORTHOPN ---
Subjective Date DATE: 08/28/16 TIME: 07:24 Subjective Linnette is feeling better this AM. She received fluid yesterday, which has improved her hypotension. Narcotics were decreased, and she feel much less "dopped up" today. Pain has been elevated, but tolerable. Her knee feels stiff. CXR was clear, UA showed no bacteria. Renal function has improved, output 450. No new complaints today. Objective Vital Signs Vital signs Vital Signs 08/27/16 08/27/16 08/28/16 08/28/16 19:55 20:08 00:15 04:05 Temp 97.3 96.8 98.1 Pulse 88 93 92 Resp 16 18 20 B/P 143/78 128/56 132/55 Pulse Ox 93 91 91 O2 Delivery Nasal Cannula Nasal Cannula Nasal Cannula Nasal Cannula O2 Flow Rate 1.50 2.00 2.00 2.00 Height (Feet): 5 Height (Inches): 6.50 Weight (Kilograms): 86.300 General General Appearance: Alert, Orientated x 3, Well Developed, No Acute Distress Respiratory (Brief) Respiratory Brief: FOUND: non-labored Cardiovascular (Brief) Cardiac: FOUND: calf easily compressible, calf soft, nontender, pedal pulses intact, peripheral edema Capillary Refill: <2 sec Musculoskeletal (Brief) Knee: FOUND painful ROM (typical post op) Musculoskeletal Brief: Not FOUND: deformity Surgical Site Incision: FOUND: Mepilex dressing intact, no drainage Integumentary (Brief) Integumentary Brief: FOUND dry, FOUND pink, FOUND warm Neurologic (Brief) Neurological Brief: FOUND: extremities w/o deficits, neuro intact Psychiatric (Brief) Psychiatric Brief: FOUND: no acute distress Laboratory Laboratory Laboratory Tests 08/27/16 04:19 08/28/16 04:50 Laboratory Tests 08/26/16 10:37 08/27/16 04:19 08/27/16 13:52 08/28/16 04:50 Assessment & Plan Problems: (1) Degenerative arthritis of right knee Status: Chronic Qualifiers: Osteoarthritis type: primary Qualified Codes: M17.11 - Unilateral primary osteoarthritis, right knee Assessment & Plan: x Resume Xarelto for atrial fib and VTE prophylaxis. SCD's and mobilization for additional DVT coverage. Wean O2 as tolerated. 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 Renal function improved with fluid and holding TIFFANY/ lasix PT/OT services to improve independent function. Discharge Planning per Case Management. Pt plans to go home with home health. She will have a son living with her for a week. (2) Diabetes Status: Chronic Assessment & Plan: Monitor. Carb restricted diet. (3) Sleep apnea Status: Chronic (4) Paralyzed hemidiaphragm Status: Chronic (5) Paroxysmal atrial fibrillation Status: Chronic Assessment & Plan: Resume meds and Xarelto. Hospital Course Summary Disclaimer The visit summary below is not to be considered part of the above Progress Note. АНДРЕЙ AMIN Aug 28, 2016 07:27
[2016-08-28] MEDS ORDERED: MILK OF MAGNESIA 30 ML SUSP PO SCH (08:00)
[2016-08-28] MEDS: ACYCLOVIR 200 MG CAPSULE PO SCH (08:37)
[2016-08-28] MEDS: DOCUSATE SODIUM 100 MG CAPSULE PO SCH ×2 (08:37→20:31)
[2016-08-28] MEDS: FLECAINIDE 50 MG TABLET PO SCH ×2 (08:37→20:31)
[2016-08-28] MEDS: POLYETHYL.GLYCOL 3350 PACKET 17gm PO SCH (08:38)
[2016-08-28] MEDS: ACETAMINOPHEN 325 MG TABLET PO SCH ×4 (08:38→21:40)
[2016-08-28] MEDS: CALCIUM 500 MG TABLET PO SCH ×2 (08:39→20:31)
--- NOTE | 2016-08-28 09:25 | NUR ---
DUANE ZEPEDA TO VISIT PATIENT, SHE IS NOT IN THE ROOM AT THIS TIME. WILL CHECK BACK.
[2016-08-28] MEDS: TIMOLOL 0.5% EYE DROPS 5ml LEFT EYE SCH (09:47)
--- NOTE | 2016-08-28 10:37 | PNPDOC ---
CHELSIE WILLETT COPPERSMITH APPRENTICE 08/28/16 1032: Subjective Date DATE: 08/28/16 TIME: 10:27 Subjective Linnette is doing better today compared to yesterday. She was just finishing up with physical therapy but at this time Physical therapy wouldn't feel safe sending her home without any help. She was also noted to drop her saturations to 80-85% with activity while on oxygen. She continues to have low urinary output, though the nurse reports it has improved. 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 Her IV infiltrated yesterday, but the patient has been trying to drink more fluids. However, she states her appetite is still nonexistent. She was able to eat a few bites for breakfast, about half of her [place] muffin along with some juice. She doesn't feel as "drugged" as she did yesterday, but her pain is severe at times. Objective Vital Signs Vital signs Vital Signs Date Time Temp Pulse Resp B/P Pulse Ox O2 Delivery O2 Flow Rate FiO2 08/28/16 08:21 96.5 93 15 135/54 91 Nasal Cannula 3.00 Height (Feet): 5 Height (Inches): 6.50 Weight (Kilograms): 86.300 General General Appearance: Alert, Orientated x 3, Well Nourished, Well Developed, No Acute Distress Eyes (Brief) Eyes: FOUND: PERRL, NOT FOUND: scleral icterus ENMT (Brief) ENMT: FOUND: mucosa moist, NOT FOUND: pharnyx erythema Respiratory (Brief) Respiratory: FOUND: rales (faint crackles on right) Comments decreased on left Cardiovascular (Brief) Cardiac: FOUND: regular rate, regular rhythm Abdomen (Brief) Abdominal: FOUND: BS normo active x4, soft, NOT FOUND: distended, tender (Brief) Comments Portillo catheter: Still oliguric Extremities (Brief) Extremity : Comments Postop swelling and ecchymosis to right knee Musculoskeletal (Brief) Musculoskeletal: FOUND: loss of motion (postop loss of motion to right knee) Integumentary (Brief) Integumentary: FOUND: dry, pink, warm Psychiatric (Brief) Psychiatric: FOUND: alert, attentive, normal affect, oriented Laboratory Laboratory Laboratory Tests 08/26/16 10:37 4/5/17 04:19 08/27/16 13:52 08/28/16 04:50 Laboratory Tests 08/27/16 04:19 08/28/16 04:50 Assessment & Plan Problems: (1) Hypoxia Status: Acute (2) Acute kidney injury Status: Resolved Assessment & Plan: Creatinine up slightly in conjunction with decreased urine output (3) Anemia following surgery Status: Acute Assessment & Plan: Preoperative hemoglobin 12.1 on 07/30 (4) Leukocytosis Status: Resolved (5) Hypotension Status: Resolved Qualifiers: Hypotension type: other hypotension type Qualified Codes: I95.89 - Other hypotension (6) Restless leg syndrome Status: Chronic (7) Hypothyroidism Status: Chronic (8) Hypertension Status: Chronic (9) Degenerative arthritis of right knee Status: Chronic Qualifiers: Osteoarthritis type: primary Qualified Codes: M17.11 - Unilateral primary osteoarthritis, right knee (10) Diabetes Status: Chronic Assessment & Plan: A1c 6.0 on 08/06/16 (11) Paroxysmal atrial fibrillation Status: Chronic (12) Sleep apnea Status: Chronic (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 BUN down to 20 and creatinine 0.8. She remains oliguric, though verbal report from RN is that this is improving. Would recommend leaving Portillo in place at the moment, perhaps discontinue later today if urine output improves. The patient would very much like this discontinued. Encourage oral intake since IV infiltrated. Hypotension: Improved. Acute hypoxic respiratory failure/hypoxia: Continues to need oxygen. Saturations dropped to 80% while working with therapy. Will need to obtain ambulatory oximetry prior to discharge. She uses BiPAP at home. Postop anemia: Hemoglobin dropped to 8.6 today. Continue to monitor, especially with hypoxia. She is on Xarelto. Continue PT and OT. Will discuss with Dr. Cartagena. Code Status Full Code Hospital Course Summary Disclaimer The hospital course summary below is not to be considered part of the above Progress Note. BARRY CARTAGENA MD 08/28/16 4596: Assessment & Plan Problems: (1) Hypoxia Status: Acute (2) Acute kidney injury Status: Resolved Assessment & Plan: Creatinine up slightly in conjunction with decreased urine output (3) Anemia following surgery Status: Acute Assessment & Plan: Preoperative hemoglobin 12.1 on 07/30 (4) Leukocytosis Status: Resolved (5) Hypotension Status: Resolved Qualifiers: Hypotension type: other hypotension type Qualified Codes: I95.89 - Other hypotension (6) Restless leg syndrome Status: Chronic (7) Hypothyroidism Status: Chronic (8) Hypertension Status: Chronic (9) Degenerative arthritis of right knee Status: Chronic Qualifiers: Osteoarthritis type: primary Qualified Codes: M17.11 - Unilateral primary osteoarthritis, right knee (10) Diabetes Status: Chronic Assessment & Plan: A1c 6.0 on 08/06/16, "prediabetes" (11) Paroxysmal atrial fibrillation Status: Chronic (12) Sleep apnea Status: Chronic (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 I reviewed the chart, the patient's history, and the COPPERSMITH APPRENTICE's documented findings as above. We discussed and formulated the assessment and plan as above with additions as below: Mrs. Vu reports that her right knee is stiff today and she complains of increased pain. She's not had a bowel movement since surgery and had a dose of milk of magnesia earlier today. She denies nausea has had no dyspnea. Urine output is borderline but improved today compared to yesterday. The patient is alert and cooperative. Breath sounds remained diminished at the left base consistent with known paralyzed diaphragm. Abdomen is soft and nondistended. Oral intake is to be aggressively pushed. The patient continues to have discomfort with Portillo catheter which I feel can be safely discontinued at this time but urine output needs to be monitored-discussed with patient. She has previously used Roxicet at a dose of 5-15 mg q3hr. Dose decreased yesterday due to somnolence although drowsiness may have been due to anesthesia in conjunction with narcotics. Will increase Roxicet slightly to 5-10 mg q3hr and reassess pain control. Increased activity encouraged. CHELSIE WILLETT APRN Aug 28, 2016 10:32 BARRY CARTAGENA MD Aug 28, 2016 14:49
--- NOTE | 2016-08-28 10:43 | NUR ---
CM CM IN TO VISIT PATIENT, SHE IS UP IN CHAIR, A&O. SON IS AT THE BEDSIDE. I VERIFIED THE DISCHARGE PLAN IS TO RETURN HOME WITH BIANCA LATHAM, SON WILL BE STAYING WITH PATIENT FOR 1 WEEK. THIS CM CONTACT INFORMATION GIVEN.
[2016-08-28 13:17] LABS: ANION GAP 10 MEQ/L (5-15); BUN/CREATININE RATIO 26 RATIO (6-26); CALCIUM 8.5 MG/DL (8.4-10.2); CHLORIDE 106 MEQ/L (98-107); CO2 - CARBON DIOXIDE 22 MEQ/L (22-30); CREATININE 0.7 MG/DL (0.7-1.2); GLOMERULAR FILTRATION RATE 82; GLUCOSE 102 MG/DL (65-110); POTASSIUM 5.2 MEQ/L (3.6-5); SODIUM 138 MEQ/L (134-144)
--- NOTE | 2016-08-28 13:36 | NUR ---
CM ORDER SIGNED FOR HOME OXYGEN, PATIENT'S FIRST CHOICE IS TO CONTACT COMPANY WHERE SHE GETS HER BIPAP SUPPLIES WHICH IS [facility] IN [place] LOC[facility] ON [address]. I CALLED THE COMPANY, PH# [phone] AND THEY REQUESTED I FAX THE ORDER AND DOCUMENTS TO THE FOLLOWING FAX # [phone].
[2016-08-28] MEDS: RIVAROXABAN 20 MG TABLET PO SCH (17:17)
--- NOTE | 2016-08-28 17:53 | NUR ---
END OF SHIFT REPORT PATIENT A/OX3. VITAL SIGNS STABLE. AFEBRILE. PATIENT STILL REQUIRES 02 PERIODICALLY. PATIENT CURRENTLY ON 1.5 LITERS. THIS IS DOWN FROM 2 LITERS AT BEGINNING OF SHIFT. RODRIGUEZ D/C DURING THE SHIFT. PATIENT HAS VOIDED SINCE RODRIGUEZ WAS D/C. PT UP WITH ASSIST X1. GB AND WALKER. SCHEDULED TYLENOL HAS BEEN GIVEN FOR PAIN AND PRN ROXICODONE. NO BM DURING THE SHIFT. DRESSING CLEAN, DRY, INTACT. WILL CONTINUE TO MONITOR.
[2016-08-28] MEDS ORDERED: BISACODYL 10 MG SUPPOSITORY RECTALLY SCH (20:00)
[2016-08-28] MEDS: ATORVASTATIN 40 MG TABLET PO SCH (21:38)
[2016-08-28] MEDS: SENNOSIDES 8.6 MG TABLET PO SCH (21:39)
[2016-08-28] MEDS: POTASSIUM CHLORIDE 10 MEQ TABLET PO SCH (21:40)
[2016-08-29] VITALS: BP 135/65; PULSE 90; RESP 20; TEMP 99.3; O2SAT 93
[2016-08-29] MEDS: OXYCODONE I.R. 5 MG TABLET PO PRN ×4 (03:02→14:26)
[2016-08-29 04:00] VITALS: BP 107/58; PULSE 77; RESP 16; TEMP 97.4; O2SAT 96
[2016-08-29 05:47] LABS: HCT - HEMATOCRIT 25.6 % (36-46); HGB - HEMOGLOBIN 8.2 GM/DL (12-16); MEAN CORPUSCULAR HGB 31.2 UUG (26-34); MEAN CORPUSCULAR VOLUME 97.3 UM3 (80-100); MEAN PLATELET VOLUME 10.8 UM3 (9.4-12.4); RED BLOOD COUNT 2.63 M/MM3 (4.00-5.20); WBC - WHITE BLOOD COUNT 12.1 T/MM3 (4.5-11.0)
[2016-08-29 05:52] LABS: ANION GAP 5 MEQ/L (5-15); BUN/CREATININE RATIO 20 RATIO (6-26); CALCIUM 8.8 MG/DL (8.4-10.2); CHLORIDE 105 MEQ/L (98-107); CO2 - CARBON DIOXIDE 26 MEQ/L (22-30); CREATININE 0.8 MG/DL (0.7-1.2); GLOMERULAR FILTRATION RATE 70; GLUCOSE 124 MG/DL (65-110); POTASSIUM 5.1 MEQ/L (3.6-5); SODIUM 136 MEQ/L (134-144)
--- NOTE | 2016-08-29 06:00 | NUR ---
END OF SHIFT SUMMARY: Remains alert and orientated. Attempts to titrate oxygen off is unsuccessful. O2 sats decrease to 80s when O2 removed or decreased to 2/L. Becomes dyspnic when walking to bathroom with stand by assist using gait belt and using walker. Takes Roxicodone, 5 mg. at a time, for pain. Tolerates food and fluid well. At beginning of shift, urine was very concentrate, dark del. Cold water, jello and juice encouraged. By this AM urine was a little street light wirer colored. Denies pain/discomfort with voiding. Polar ice attached to knee. Dressing dry and intact. No shadow of drainage showing through.
[2016-08-29] MEDS ORDERED: LEVOTHYROXINE 175 MCG TABLET PO SCH (06:30)
[2016-08-29] MEDS: NOZIN NASAL SWAB NS SCH ×2 (06:46→14:00)
[2016-08-29 07:20] VITALS: PULSE 91; RESP 16
[2016-08-29 08:03] VITALS: BP 126/65; PULSE 91; RESP 18; TEMP 99.1; O2SAT 95
--- NOTE | 2016-08-29 08:29 | PDORTHOPN ---
Subjective Date DATE: 08/29/16 TIME: 08:22 Subjective Mrs Vu was sitting in her chair when I saw her this am. She denies having much knee pain. Mobility is a little slow according to her. She is hopeful to go to IRU for a short time. She reports some SOA with activity which is a little abnormal for her. No cough or CP. Has a paralyzed barbara diaphragm. Temp was up slightly yesterday and WBC up this mildly this AM. BPs improved. HR generally in the 90s but have ranged from 77-100. Objective Vital Signs Vital signs Vital Signs 08/28/16 08/29/16 08/29/16 08/29/16 20:25 00:00 04:00 07:20 Temp 99.5 99.3 97.4 Pulse 100 90 77 91 Resp 22 20 16 16 B/P 135/65 135/65 107/58 Pulse Ox 93 93 96 O2 Delivery Nasal Cannula Nasal Cannula O2 Flow Rate 1.50 2.00 1.00 08/29/16 08:03 Temp 99.1 Pulse 91 Resp 18 B/P 126/65 Pulse Ox 95 O2 Delivery Nasal Cannula O2 Flow Rate 2.00 Height (Feet): 5 Height (Inches): 6.50 Weight (Kilograms): 86.300 General General Appearance: Alert, Well Developed, No Acute Distress Respiratory (Brief) Respiratory Brief: FOUND: non-labored Cardiovascular (Brief) Cardiac: FOUND: calf easily compressible, calf soft, nontender, pedal pulses intact Surgical Site Incision: FOUND: Mepilex dressing intact, no drainage Integumentary (Brief) Integumentary Brief: FOUND dry, FOUND pink, FOUND warm Neurologic (Brief) Neurological Brief: FOUND: extremities w/o deficits, neuro intact Psychiatric (Brief) Psychiatric Brief: FOUND: alert, no acute distress, normal affect Laboratory Laboratory Laboratory Tests 08/28/16 04:50 08/29/16 04:25 Laboratory Tests 08/27/16 13:52 08/28/16 04:50 08/28/16 12:53 08/29/16 04:24 Assessment & Plan Problems: (1) Degenerative arthritis of right knee Status: Chronic Qualifiers: Osteoarthritis type: primary Qualified Codes: M17.11 - Unilateral primary osteoarthritis, right knee Assessment & Plan: x Continue Xarelto for atrial fib and VTE prophylaxis. SCD's and mobilization for additional DVT coverage. Wean O2 as tolerated. 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 Feels a little SOA with activity. Hospitalist to cheryl pt this AM. Renal function improved with fluid and holding TIFFANY/ lasix K+ up slightly this AM. PT/OT services to improve independent function. Discharge Planning per Case Management. Pt hopes to go to IRU today. (2) Diabetes Status: Chronic Assessment & Plan: Monitor. Carb restricted diet. (3) Sleep apnea Status: Chronic (4) Paralyzed hemidiaphragm Status: Chronic (5) Paroxysmal atrial fibrillation Status: Chronic Assessment & Plan: Resume meds and Xarelto. Hospital Course Summary Disclaimer The visit summary below is not to be considered part of the above Progress Note. HAILEY MARINO Aug 29, 2016 08:26
[2016-08-29] MEDS: ACYCLOVIR 200 MG CAPSULE PO SCH (08:45)
[2016-08-29] MEDS: FLECAINIDE 50 MG TABLET PO SCH (08:45)
[2016-08-29] MEDS: DOCUSATE SODIUM 100 MG CAPSULE PO SCH (08:45)
[2016-08-29] MEDS: ACETAMINOPHEN 325 MG TABLET PO SCH ×2 (08:46→13:36)
[2016-08-29] MEDS: CALCIUM 500 MG TABLET PO SCH (08:46)
[2016-08-29] MEDS: TIMOLOL 0.5% EYE DROPS 5ml LEFT EYE SCH (08:46)
[2016-08-29] MEDS: POLYETHYL.GLYCOL 3350 PACKET 17gm PO SCH (08:47)
[2016-08-29] MEDS ORDERED: MILK OF MAGNESIA 30 ML SUSP PO PRN (10:00)
--- NOTE | 2016-08-29 10:44 | NUR ---
DUANE CM IN TO VISIT WITH PT. SHE IS ALERT AND ORIENTED. SHE WOULD LIKE TO DC TO IRU. SHE IS MADE AWARE THAT AT THIS TIME IRU ANTICIPATES THAT SHE WILL BE ACCEPTED BUT THAT IT WON'T BE OFFICIAL UNTIL HAS ACCEPTED HER. DUANE MAKES PT AWARE THAT IF ACCEPTED, SHE ANTICIPATES DC TO IRU THIS AFTERNOON. PT VERBALIZED UNDERSTANDING. Addendum: 08/29/16 at 1047 by SHAWN WALKER RN Amended: Links added.
[2016-08-29] MEDS ORDERED: SENN-156 PO (12:25)
[2016-08-29] MEDS ORDERED: DOCU-168 PO (12:25)
[2016-08-29] MEDS ORDERED: MAGN400O4 PO (12:25)
--- NOTE | 2016-08-29 12:32 | DSPDOC ---
General Date Date DATE: 08/29/16 TIME: 12:26 Attending Physician Monty Medina MD Admitting Physician Monty Medina MD Consulting Physician Admitting Diagnosis PRIMARY DEGENERATIVE JOINT DISEASE RIGHT KNEE Discharge Diagnosis I have independently evaluated and examined this patient. I reviewed the chart, the patient's history, and the DOCK SUPERINTENDENT's documented findings as above. We discussed and formulated the assessment and plan as above with additions as below: Mrs. Vu reports that her right knee is stiff today and she complains of increased pain. She's not had a bowel movement since surgery and had a dose of milk of magnesia earlier today. She denies nausea has had no dyspnea. Urine output is borderline but improved today compared to yesterday. The patient is alert and cooperative. Breath sounds remained diminished at the left base consistent with known paralyzed diaphragm. Abdomen is soft and nondistended. Oral intake is to be aggressively pushed. The patient continues to have discomfort with Portillo catheter which I feel can be safely discontinued at this time but urine output needs to be monitored-discussed with patient. She has previously used Roxicet at a dose of 5-15 mg q3hr. Dose decreased yesterday due to somnolence although drowsiness may have been due to anesthesia in conjunction with narcotics. Will increase Roxicet slightly to 5-10 mg q3hr and reassess pain control. Increased activity encouraged. Procedures Rt total knee arthroplasty History of Present Illness HPI Elements This patient was admitted for elective surgical tx of end stage degenerative joint disease that failed to respond to conservative treatment. Further details of this is found in the admission H&P. Hospital Course After appropriate preoperative clearance and signing of operative consent, the patient was given IV antibiotics, according to orthopedic protocol. The patient was taken to the operating room and underwent elective right total knee arthroplasty. Following surgery, antibiotics were discontinued less than 24 hours according to joint protocol. Appropriate anticoagulants were initiated and SCDs added for DVT prevention. Her oxygen sats were a little low likely from a combination of a paralyzed barbara diaphragm, NATACHA and using narcotics post op. This has slowly improved and her oxygen demands are low. Her CXR was neg for acute process. Her Creat increased due to low BPs. Her Lisinopril / Lasix was placed on hold and IVF were provided. Her Creat is back to normal levels at discharge. BPs are improving and I expect the Lisinopril to be restarted while in IRU. The dressing was clean, dry, and intact. Pain control was obtained via multimodal approach. Bowel motivation addressed with scheduled and PRN medications. Early mobilization was initiated through PT services. Discharge arrangements made by a collaborative effort between the patient and Case Management. She will go to IRU for more therapy and monitoring of her medical problems. Follow-up is scheduled in 2-3 weeks. Discharge instructions given by orthopedic providers and nursing staff at discharge. Discharge condition was good. Problems: (1) Degenerative arthritis of right knee Status: Chronic Assessment & Plan: x Continue Xarelto for atrial fib and VTE prophylaxis. SCD's and mobilization for additional DVT coverage. Wean O2 as tolerated. 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 Feels a little SOA with activity. Hospitalist to eval pt this AM. Renal function improved with fluid and holding TIFFANY/ lasix K+ up slightly this AM. PT/OT services to improve independent function. Discharge Planning per Case Management. Pt hopes to go to IRU today. (2) Diabetes Status: Chronic Assessment & Plan: Monitor. Carb restricted diet. (3) Sleep apnea Status: Chronic (4) Paralyzed hemidiaphragm Status: Chronic (5) Paroxysmal atrial fibrillation Status: Chronic Assessment & Plan: Resume meds and Xarelto. Ongoing Care Required?: Yes (Low BP, Elevated creatine.) Laboratory Laboratory Tests Test 08/28/16 12:53 08/29/16 04:24 08/29/16 04:25 Turbidity < 20 < 20 Sodium Level 138MEQ/L 136MEQ/L Potassium Level 5.2MEQ/L 5.1MEQ/L Chloride Level 106MEQ/L 105MEQ/L Carbon Dioxide Level 22MEQ/L 26MEQ/L Anion Gap 10MEQ/L 5MEQ/L Blood Urea Nitrogen 18.0MG/DL 16.0MG/DL Creatinine 0.7MG/DL 0.8MG/DL Glomerular Filtration Rate Calc 82 70 BUN/Creatinine Ratio 26RATIO 20RATIO Glucose Level 102MG/DL 124MG/DL Calculated Osmolality 268MOSM/KG 264MOSM/KG Calcium Level 8.5MG/DL 8.8MG/DL Icterus Index < 2 < 2 Chemistry Specimen Hemolysis 25 < 15 White Blood Count 12.1T/MM3 Red Blood Count 2.63M/MM3 Hemoglobin 8.2GM/DL Hematocrit 25.6% Mean Corpuscular Volume 97.3UM3 Mean Corpuscular Hemoglobin 31.2UUG Mean Corpuscular Hemoglobin Concent 32.0GM/DL RDW Standard Deviation 46.8FL Platelet Count 176T/MM3 Mean Platelet Volume 10.8UM3 Home Meds Active Scripts Polyethylene Glycol 3350 (Healthylax) 17 Gm Powd.pack, 17 G PO DAILY, #30 PACKET Prov:АНДРЕЙ AMIN 08/27/16 Oxycodone HCl (Oxycodone HCl) 5 Mg Tablet, 5-15 MG PO Q3H Y for BREAKTHROUGH PAIN, #60 TAB Prov:АНДРЕЙ AMIN 08/27/16 Acetaminophen (Tylenol) 325 Mg Tablet, 650 MG PO QID, #100 TAB Prov:АНДРЕЙ AMIN 08/27/16 Reported Medications Levothyroxine Sodium (Levothyroxine Sodium) 175 Mcg Tablet, 175 MCG PO ACB Thu& Thu, TAB Once daily before breakfast on Thursday and Thursday. 08/05/16 Acyclovir (Zovirax) 200 Mg Capsule, 200 MG PO DAILY, CAP 08/04/16 Timolol Maleate (Timolol Maleate) 5 Ml Drops, 1 DROP LEFT EYE DAILY 08/04/16 Potassium Chloride (Klor-Con 8) 8 Meq Tablet, 1 TAB PO HS 08/04/16 Furosemide (Furosemide) 20 Mg Tablet, 1 TAB PO DAILY 08/04/16 Atorvastatin Calcium (Atorvastatin Calcium) 80 Mg Tablet, 80 MG PO HS 10/28/15 Lisinopril (Lisinopril) 10 Mg Tablet, 10 MG PO DAILY 10/28/15 Rivaroxaban (Xarelto) 20 Mg Tablet, 20 MG PO HS 10/28/15 Levothyroxine Sodium (Levothyroxine Sodium) 150 Mcg Tablet, 150 MCG PO SuTuWeThSa One tablet with breakfast everyday except Thursday and Thursday. 10/28/15 Flecainide Acetate (Flecainide Acetate) 50 Mg Tablet, 50 MG PO BID 10/28/15 Cholecalciferol (Vitamin D3) (Vitamin D) 2,000 Unit Tablet, 2000 UNIT PO HS 10/28/15 Citalopram Hydrobromide (Citalopram HBr) 40 Mg Tablet, 40 MG PO HS 10/28/15 Calcium Carbonate (Calcium) 1 Tab Tablet, 500 MG PO BID 06/06/08 [place] [facility] [place] Blood Loss 50.0 HAILEY MARINO Aug 29, 2016 12:31
[2016-08-29 12:33] VITALS: BP 119/62; PULSE 84; RESP 16; TEMP 96.8; O2SAT 93
--- NOTE | 2016-08-29 14:41 | NUR ---
DISCHARGE PT DISCHARGED TO IRU AT 1431. REPORT CALLED TO LORAINE BOO. PACKET AND MEDS GIVEN TO LORAINE. BELONGINGS SENT WITH PT. PT WHEELED TO IRU ROOM 168.
--- NOTE | 2016-08-29 14:44 | PNPDOC ---
Subjective Date DATE: 08/29/16 TIME: 14:34 Subjective Mrs. Vu reports that pain control has improved but expressed concern about ongoing constipation. She's had no nausea or vomiting. Appetite remains poor but she is making an effort to drink fluids. She is voiding regularly/ spontaneously although volumes vary with small volumes frequently but no dysuria. She denied insomnia. She describes getting winded when she walks but denied lightheadedness. She has no dyspnea at rest and denies sinus congestion. Objective Vital Signs Vital signs Vital Signs Date Time Temp Pulse Resp B/P Pulse Ox O2 Delivery O2 Flow Rate FiO2 08/29/16 12:33 96.8 84 16 119/62 93 Nasal Cannula 2.00 I/O weight 91.7 kg, up approximate 5 kg from 2 days ago EXAM General-NAD, alert, cooperative, fluent speech HEENT-oropharynx clear, sclera anicteric Lungs-respirations nonlabored, good airflow, breath sounds clear posteriorly Cardiac-regular rhythm, S1-S2 Abd-obese, soft, nontender, bowel sounds present Ext-+1 edema right lower extremity, trace edema left lower extremity Neuro-moving all extremities well Psych-calm, cooperative Height (Feet): 5 Height (Inches): 6.50 Weight (Kilograms): 91.700 Laboratory Laboratory Laboratory Tests 08/28/16 04:50 08/28/16 12:53 08/29/16 04:24 Laboratory Tests 08/28/16 04:50 08/29/16 04:25 Assessment & Plan Problems: (1) Hypoxia Status: Acute (2) Hyperkalemia Status: Acute Assessment & Plan: Potassium 5.2 on 08/28/16 (3) Constipation by delayed colonic transit Status: Acute Assessment & Plan: Postoperative/narcotics/decreased activity (4) Acute kidney injury Status: Resolved Assessment & Plan: Creatinine up slightly in conjunction with decreased urine output (5) Anemia following surgery Status: Acute Assessment & Plan: Preoperative hemoglobin 12.1 on 07/30 (6) Leukocytosis Status: Resolved (7) Hypotension Status: Resolved Qualifiers: Hypotension type: other hypotension type Qualified Codes: I95.89 - Other hypotension (8) Restless leg syndrome Status: Chronic (9) Hypothyroidism Status: Chronic (10) Hypertension Status: Chronic (11) Degenerative arthritis of right knee Status: Chronic Qualifiers: Osteoarthritis type: primary Qualified Codes: M17.11 - Unilateral primary osteoarthritis, right knee (12) Diabetes Status: Chronic Assessment & Plan: A1c 6.0 on 08/06/16, "prediabetes (13) Paroxysmal atrial fibrillation Status: Chronic (14) Sleep apnea Status: Chronic (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 Blood pressure 107/58-151/62 over the past 24 hours. I'm reluctant to resume lisinopril yet especially in light of mild hyperkalemia but believe we can proceed with resumption of Lasix at this time. Continued aggressive oral hydration recommended. Minor hypoxia persists without other respiratory symptoms, patient encouraged to continue using incentive spirometer. Anticipate resolution with increased physical activity. Continue flecainide, Xarelto, and Celexa for history of atrial fibrillation and history depression. Hemoglobin down slightly overnight, we will add iron supplementation after bowels began working. Stable for transfer to rehabilitation. Discussed with Mor Chapman. Plan/Intensity of Service Discussed with orthopedics and case management. Laboratory data reviewed. DVT Prophylaxis: Xarelto Code Status Full Code Hospital Course Summary Disclaimer The hospital course summary below is not to be considered part of the above Progress Note. Hospital Course Summary After appropriate preoperative clearance and signing of operative consent, the patient was given IV antibiotics, according to orthopedic protocol. The patient was taken to the operating room and underwent elective right total knee arthroplasty. Following surgery, antibiotics were discontinued less than 24 hours according to joint protocol. Appropriate anticoagulants were initiated and SCDs added for DVT prevention. Her oxygen sats were a little low likely from a combination of a paralyzed barbara diaphragm, NATACHA and using narcotics post op. This has slowly improved and her oxygen demands are low. Her CXR was neg for acute process. Her Creat increased due to low BPs. Her Lisinopril / Lasix was placed on hold and IVF were provided. Her Creat is back to normal levels at discharge. BPs are improving and I expect the Lisinopril to be restarted while in IRU. The dressing was clean, dry, and intact. Pain control was obtained via multimodal approach. Bowel motivation addressed with scheduled and PRN medications. Early mobilization was initiated through PT services. Discharge arrangements made by a collaborative effort between the patient and Case Management. She will go to IRU for more therapy and monitoring of her medical problems. Follow-up is scheduled in 2-3 weeks. Discharge instructions given by orthopedic providers and nursing staff at discharge. Discharge condition was good. BARRY GUTIERREZ MD Aug 29, 2016 14:37
== END 2016-08-29 14:31 | DRG 470 ==
LOC: SRG 08-26 09:06
PROVIDERS: ADMIT Orthopaedic Surgery; ATTEND Orthopaedic Surgery
PROC: 0SRC0J9 Replacement of Right Knee Joint with Synthetic Substitute, Cemented, Open Approach (ICD-10-PCS; principal; 2016-08-26 12:28)
DX: M17.11 Unilateral primary osteoarthritis, right knee (principal); N17.9 Acute kidney failure, unspecified; E11.9 Type 2 diabetes mellitus without complications; G47.33 Obstructive sleep apnea (adult) (pediatric); J98.6 Disorders of diaphragm; I48.0 Paroxysmal atrial fibrillation; R09.02 Hypoxemia; E87.5 Hyperkalemia; K59.01 Slow transit constipation; D64.9 Anemia, unspecified; D72.829 Elevated white blood cell count, unspecified; I95.89 Other hypotension; Z60.2 Problems related to living alone; Z99.89 Dependence on other enabling machines and devices; K21.9 Gastro-esophageal reflux disease without esophagitis; I10 Essential (primary) hypertension; E78.00 Pure hypercholesterolemia, unspecified; E89.0 Postprocedural hypothyroidism; I27.2 Other secondary pulmonary hypertension; F32.9 Major depressive disorder, single episode, unspecified; E66.9 Obesity, unspecified; Z68.32 Body mass index [BMI] 32.0-32.9, adult; Z87.891 Personal history of nicotine dependence
CPT/HCPCS: 36415; 36416; 80048; 81001; 85025; 85027; 94761

== ENCOUNTER → 2016-08-06 | Outpatient (CLI) | payer MEDICARE, BC ==
[~2016-08-06] MED LIST changes: +ACYC200C5 PO; +ALEN70TA48 PO; +FURO20TA4 PO; +LEVO175T9 PO; +POTA8TAB3 PO; +TIMO5DRO7 LEFT EYE
--- NOTE | 2016-08-06 14:34 | DI ---
Indication: ITS.REASON: Z01.818 PRE-OP EXAM Procedure: CHEST, PA LATERAL: Encounter: Initial Comparison: 03/20/2014 Technique: PA and lateral radiographs of the chest were obtained. Findings: Lungs and airways: Persistent elevation of the left hemidiaphragm with associated decreased left lung volume and left basilar atelectasis. No other/new focal airspace consolidation. Normal pulmonary vasculature. Pleura: No pleural effusion or pneumothorax. Heart and mediastinum: Aortic atherosclerosis. The cardiomediastinal silhouette is otherwise within normal limits. Osseous structures and soft tissues: No acute osseous abnormality is seen. Degenerative disc disease of the thoracic spine. Impression: No acute cardiopulmonary process. .
== END ==
LOC: IMA 14:07
PROVIDERS: ATTEND Family Medicine
DX: Z01.818 Encounter for other preprocedural examination (principal)

== ENCOUNTER 2016-08-29 14:32 | Inpatient (IN) | payer MEDICARE, BC ==
[~2016-08-29] VITALS: Ht 170.2 cm; Wt 87.3 kg
[~2016-08-29 14:32] MED LIST changes: +ACET-2321 PO; -ALEN70TA48 PO; +DOCU-168 PO; +MAGN400O4 PO; +OXYC5TAB84 PO; +POLY17PO18 PO; +SENN-156 PO
--- NOTE | 2016-08-29 14:32 | NUR ---
ADMISSION ADDENDUM PATIENT ARRIVED TO IRU FLOOR AT 1423, ESTELA HAS HER BELONGINGS WITH HER- 2 WALKERS, CD PLAYER, CELL PHONE AND COPPERSMITH HELPER, RED SUIT CASE, PURSE, PERSONAL CLOTHES AND BIPAP MACHINE. PATIENT VERBALIZED SHE IS A FULL CODE.
--- NOTE | 2016-08-29 14:32 | NUR ---
ADMISSION NOTE CHITRA OAKES ARRIVED TO IRU 168 FROM [facility]. TRANSPORTED VIA WHEELCHAIR BY HELPER [employer]. PATIENT BELONGINGS TRANSPORTED WITH PATIENT. TRANSFERRED FROM WHEELCHAIR TO BED. PATIENT ALERT AND ORIENTED, CALM AND COOPERATIVE. SURGICAL INCISION TO R KNEE, DRESSING AND POLAR PACK IN PLACE. PATIENT ORIENTED TO UNIT. CONSENTS SIGNED, PATIENT ARMBAND PLACED.
[2016-08-29 14:45] VITALS: RESP 18
--- OUTSIDE RECORDS SUMMARY | 2016-08-29 14:58 | XMS REPORT | Continuity of Care Document ---
Author Author [facility] Organization [facility] Address Unknown Phone Unavailable Support Name Relationship Address Phone ILEANA QUINTERO MD Caregiver [address] [place] [address] Unavailable ILEANA QUINTERO MD Caregiver [address] [place] [address] Unavailable ROMY SORIA DO Caregiver [address] [place] [address] Unavailable DINOVANESSA Next Of Kin [address] [place] [address] Insurance Providers Guarantor Linnette Oakes Address [address] [address] C Email [id number] Policy Number [id number] Subscriber's Name Linnette Oakes Relationship 18 Self Group Number [id number] Payer Medicare Policy Number [id number] Subscriber's Name Linnette Oakes Relationship 18 Self Advance Directives Directive Response Recorded Date/Time Ordered Resuscitation Status Full Code 08/25/16 3:55pm Resuscitation Documents on File No 08/26/16 3:15pm DPOA for Healthcare Only No 08/27/16 4:15pm Living Will No 08/26/16 3:15pm Problems Active Problems Medical Problem Onset Date Status Acute kidney injury Unknown Resolved Anemia following surgery Unknown Acute Constipation by delayed colonic transit Unknown Degenerative arthritis of right knee Unknown Chronic Diabetes Unknown Chronic Glaucoma, left eye Unknown Hyperkalemia Unknown Hyperlipemia Unknown Chronic Hypertension Unknown Chronic Hypotension Unknown Resolved Hypothyroidism Unknown Chronic Hypoxia Unknown Acute Leukocytosis Unknown Resolved Obesity (BMI 30-39.9) Unknown Chronic Osteopenia Unknown Paralyzed hemidiaphragm Unknown Chronic Paroxysmal atrial fibrillation Unknown Chronic Pulmonary hypertension Unknown Chronic Restless leg syndrome Unknown Chronic Sleep apnea Unknown Chronic Past Problems Medical Problem Onset Date Acute respiratory failure with hypoxia Unknown Adverse reaction to drug Unknown Allergic conjunctivitis Unknown Allergic reaction Unknown Dyspnea on exertion Unknown Fasting hypoglycemia Unknown Head contusion Unknown Hypokalemia Unknown Hypomagnesemia Unknown Hypoxia Unknown New onset atrial flutter Unknown PAT (paroxysmal atrial tachycardia) Unknown Prediabetes Unknown Pulmonary emboli Unknown Status post Castillo fundoplication Unknown Strain of left patellar tendon Unknown Suspected DVT (deep vein thrombosis) Unknown Suspected pulmonary embolism Unknown Swelling of left lower extremity Unknown Tricuspid regurgitation Unknown Volume overload Unknown Surgical Problem Onset Date Sliding hiatal hernia Unknown Medications Current Home Medications Medication Dose Units Route Directions Days Qty Instructions Start Date Acetaminophen (Tylenol) 325 Mg Tablet 650 Mg Oral Four Times Daily 100 Tablet 08/27/16 Acyclovir (Zovirax) 200 Mg Capsule 200 Mg Oral Daily 08/04/16 Atorvastatin Calcium 80 Mg Tablet 80 Mg Oral Bedtime 10/28/15 Calcium Carbonate (Calcium) 1 Tab Tablet 500 Mg Oral Twice A Day 06/06/08 Cholecalciferol (Vitamin D3) (Vitamin D) 2,000 Unit Tablet 2,000 Unit Oral Bedtime 10/28/15 Citalopram Hydrobromide (Citalopram Hbr) 40 Mg Tablet 40 Mg Oral Bedtime 10/28/15 Docusate Sodium (Colace) 100 Mg Capsule 100 Mg Oral Twice A Day 60 Capsule 08/29/16 Flecainide Acetate 50 Mg Tablet 50 Mg Oral Twice A Day 10/28/15 Furosemide 20 Mg Tablet 1 Tab Oral Daily 08/04/16 Levothyroxine Sodium 150 Mcg Tablet 150 Mcg Oral Every Thursday, Thursday, Thursday, , And Thursday One tablet with breakfast everyday except Thursday and Thursday. 10/28/15 Levothyroxine Sodium 175 Mcg Tablet 175 Mcg Oral Acb Mon&Fri Once daily before breakfast on Thursday and Thursday. 08/05/16 Magnesium Hydroxide (Milk Of Magnesia) 400 Mg/5 Ml Oral.susp 30 Ml Oral Daily as needed for Constipation 14 Days 08/29/16 Oxycodone Hcl 5 Mg Tablet 5-15 Mg Oral Every 3 Hours as needed for Breakthrough Pain 60 Tablet 08/27/16 Polyethylene Glycol 3350 (Healthylax) 17 Gm Powd.pack 17 G Oral Daily 30 Packet 08/27/16 Potassium Chloride (Klor-Con 8) 8 Meq Tablet 1 Tab Oral Bedtime 08/04/16 Rivaroxaban (Xarelto) 20 Mg Tablet 20 Mg Oral Bedtime 10/28/15 Sennosides (Senna) 8.6 Mg Tablet 17.2 Mg Oral Daily as needed for Constipation 7 Days 14 Tablet 08/29/16 Timolol Maleate 5 Ml Drops 1 Drop Left Eye Only Daily 08/04/16 Past Home Medications Medication Directions Ordered Status [...] 10 Mg Tablet, 10 Mg Oral Daily 10/28/15 Discontinued Lisinopril 10 Mg Tablet, 10 Mg [...] Date/Time Onset Date Status Reason for Hospitalization TOTAL KNEE REPLACEMENT 08/29/2016 12:55pm Not Applicable Not Applicable Chewing Tobacco Status No 02/03/2013 3:08pm Not Applicable Not Applicable Hx Substance Use No 08/26/2016 10:11am Not Applicable Not Applicable Hx Alcohol Use Y MAYBE MONTHLY 08/26/2016 10:11am Not Applicable Not Applicable Has the pt used tobacco in the last 12 months No 08/26/2016 10:11am Not Applicable Not Applicable Tobacco Usage none 10/28/2015 9:57pm Not Applicable Not Applicable Query Response Start Date Stop Date Smoking Status Former smoker Hospital Discharge Instructions Instructions: Care Instructions: Reason for Hospitalization: TOTAL KNEE REPLACEMENT I was in the hospital because (patient own words): I HAD A TOTAL KNEE REPLACEMENT Discharge Diet: Resume normal diet as tolerated Discharge Activity: Continue the exercises you were given in the hospital three times a day. Your therapist will provide you with a home therapy program prior to your hospital discharge. As you feel stronger, increase the number of repetitions you do in each session. Please check with us before you swim, use a whirlpool, drive or ride a bicycle. Follow Up Appointments: Follow up as scheduled Pending Lab / Results: No Pending Lab Patient Instructions: Driving may be resumed once you are no longer taking narcotic medications and feel you can safely operate the vehicle. You may wish to practice in an empty parking lot at first. Keep in mind that your reaction time will be delayed for up to 6 weeks after surgery. Contact your surgeon for antibiotics to take before having dental work. Wound/Incision Care: In most cases, a Mepilex dressing will be placed at the time of surgery. This dressing will not need to be covered while showering. Leave dressing in place until your follow-up appointment as long as it remains clean, dry and stuck down well around the edges. Call your Doctor if you encounter a problem with your dressing. Please avoid submerging your incision until it is completely healed, once the Mepilex dressing is removed. This includes bathtubs, swimming pools, and hot tubs. DO NOT USE ALCOHOL, PEROXIDE, OR OINTMENTS of any kind on your incision. Pain Scale Utilized to Educate Patient: 0-10 Pain Scale Pain Management/Treatment: Ice packs may be used, and will also help with the pain. You will be given a prescription for pain. Expected Signs/Symptoms: Some swelling around the incision, as well as in your feet and legs is normal. To help with this, elevate your feet on a footstool when sitting in a chair, and do the ankle pumps and circles whenever you are sitting still. Muscle action helps to move collected fluid out of the tissues and improve circulation. Ice packs may be used, and will also help with the pain. Report any persistent swelling, calf tenderness, increase in pain, or pain in the calf with warmth, or redness to your doctor. Notify Physician If: Report any complications to my office immmediately. This includes excessive bleeding, wound breakdown, redness around the wound, uncontrolled pain, or fever over 101 on 3 different measurements. Eat a balanced diet and get plenty of rest. During Business Hours:: If you have any questions or concerns, please call during regular office hours ([phone]). After Business Hours:: If you have any problems or need to reach a physician after hours or on the weekend please call the hospital's main number [phone] to have your physician paged. Condition at time of discharge: Good Plan of Care Discharge Date 08/29/16 2:31pm Disposition 62 TO [facility] Instructions/Education Provided [facility] Postop Instructions [facility] General Instructions Prescriptions See Medication Section Additional Instructions/Education FOLLOW UP WITH DR QUINTERO 09-17-16 @ 9:45AM Lisinopril on hold for low BP. Lasix restarted 08/29/16. Care Plan and Goals See Discharge Instructions Section Functional Status Query Response Date Recorded Mobility Status Ambulatory August 29, 2016 12:55pm Assistive Devices None August 29, 2016 12:55pm Activity Limitations None August 29, 2016 12:55pm Feeding Ability Independent August 29, 2016 12:55pm Toileting Ability Independent August 26, 2016 3:11pm Grooming Ability Independent August 29, 2016 12:55pm Dressing Ability Independent August 29, 2016 12:55pm Driving Ability Independent August 29, 2016 12:55pm Housework Ability Independent August 29, 2016 12:55pm Meal Preparation Ability Independent August 29, 2016 12:55pm Stair Climbing Ability Independent August 29, 2016 12:55pm Ability to complete ADL's impeded by Impaired Mobility August 29, 2016 12:55pm Cognitive/Perceptual Impairments Impaired vision August 29, 2016 12:55pm Visual Assistive Devices Glasses With patient August 26, 2016 3:11pm Preferred Method of Learning Demonstration Listening Pictures Hands on August 26, 2016 3:11pm Allergies, Adverse Reactions, Alerts Allergen Type Severity Reaction Status Last Updated Sulfa (Sulfonamide Antibiotics) Allergy Unknown Active 08/18/16 Pentazocine Allergy Intermediate HALLUCINATIONS Active 03/20/16 Erythromycin base Adverse Reaction Mild NAUSEA Active 03/20/16 Onabotulinumtoxina Adverse Reaction Intermediate SWELLING, ITCHING Active 08/04/16 Cortisone Allergy Unknown SWELLING, ITCHING Active 08/04/16 Immunizations Query Response on File Recorded Date/Time Hx Influenza Vaccination Y 03-04-16 08/26/16 10:11am Hx Pneumococcal Vaccination Y 03-04-16 08/26/16 10:11am Hx Tetanus, Diptheria, Pertussis N UNCERTAIN 11/15/11 4:17pm Hx Influenza Vaccination Y 03-04-16 08/26/16 10:11am Hx Tetanus, Diptheria, Pertussis N UNCERTAIN 11/15/11 4:17pm DTaP Vaccine History 201012/28/15 1:51pm Influenza Vaccine Hx 02/201512/28/15 1:51pm Pneumococcal PCV13 Vaccine Hx UNK 10/28/15 8:03pm Tdap Vaccine Hx 201010/28/15 8:03pm Vital Signs Acute Vital Signs Vital Response Date/Time Temperature (Fahrenheit) 96.8 deg F (96.8 - 99.1) 08/29/2016 12:33pm Temperature (Calculated Celsius) 36.01560 degrees C (36.0 - 37.3) 08/29/2016 12:33pm Temperature Source Axillary 08/29/2016 12:33pm Pulse Rate (adult) 84 bpm (60 - 100) 08/29/2016 12:33pm Respiratory Rate 16 breaths/min (10 - 20) 08/29/2016 12:33pm O2 Sat by Pulse Oximetry 93 % (90 - 100) 08/29/2016 12:33pm Oxygen Delivery Method Nasal Cannula 08/29/2016 12:33pm Oxygen Delivery Method Nasal Cannula 08/26/2016 3:54pm Oxygen Flow Rate 2.00 L/min 08/29/2016 12:33pm Blood Pressure 119/62 mm Hg 08/29/2016 12:33pm Blood Pressure Source Automatic Cuff 08/29/2016 12:33pm Height (Feet) 5 feet 08/29/2016 8:29am Height (Inches) 6.50 inches 08/29/2016 8:29am Weight (Kilograms) 91.700 kg 08/29/2016 9:44am Body Mass Index (BMI) 29.1 08/26/2016 9:36am Results Laboratory Results Test Name Result Units Flags Reference Collection Date/Time Result Date/ Time Comments White Blood Count 12.1 T/MM3 H 4.5-11.0 08/29/2016 4:25am 08/29/2016 5: 47am Red Blood Count 2.63 M/MM3 L 4.00-5.20 08/29/2016 4:25am 08/29/2016 5: 47am Hemoglobin 8.2 GM/DL L 12-16 08/29/2016 4:08/29/2016 5:47am Hematocrit 25.6 % L 36-46 08/29/2016 4:08/29/2016 5:47am Mean Corpuscular Volume 97.3 UM3 80-100 08/29/2016 4:08/29/2016 5: 47am Mean Corpuscular Hemoglobin 31.2 UUG 26-34 08/29/2016 4:2016 5:47am Mean Corpuscular Hemoglobin Concent 32.0 GM/DL 31-37 08/29/2016 4:08/29/2016 5:47am RDW Standard Deviation 46.8 FL 36.9-50.2 08/29/2016 4:08/29/2016 5 :47am Platelet Count 176 T/MM3 130-400 08/29/2016 4:08/29/2016 5:47am Mean Platelet Volume 10.8 UM3 9.4-12.4 08/29/2016 4:08/29/2016 5: 47am Neutrophils (%) (Auto) 61.9 % 33-66 08/28/2016 4:5008/28/2016 5: 48am Lymphocytes (%) (Auto) 19.8 % L 23-45 08/28/2016 4:08/28/2016 5: 48am Monocytes (%) (Auto) 16.5 % H 0-9.0 08/28/2016 4:5008/28/2016 5:48am Eosinophils (%) (Auto) 1.4 % 0-4 08/28/2016 4:5008/28/2016 5:48am Basophils (%) (Auto) 0.2 % 0-2 08/28/2016 4:50am 08/28/2016 5:48am Immature Granulocyte % (Auto) 0.2 % 0.0-0.5 08/28/2016 4:50am 2016 5:48am Absolute Neutrophils (auto) 6.2 T/MM3 1.8-7.7 08/28/2016 4:50am 2016 5:48am Absolute Lymphocytes (auto) 2.0 T/MM3 1-4.8 08/28/2016 4:50am 2016 5:48am Absolute Monocytes (auto) 1.7 T/MM3 H 0-0.8 08/28/2016 4:50am 2016 5:48am Absolute Eosinophils (auto) 0.1 T/MM3 0-0.5 08/28/2016 4:50am 2016 5:48am Absolute Basophils (auto) 0.0 T/MM3 0-0.2 08/28/2016 4:50am 08/28/2016 5:48am Absolute Immature Granulocyte (auto 0.02 T/MM3 0.00-0.03 08/28/2016 4: 50am 08/28/2016 5:48am Icterus Index < 2 0-7 08/29/2016 4:24am 08/29/2016 5:52am Chemistry Specimen Hemolysis < 15 0-25 08/29/2016 4:08/29/2016 5 :52am 0-25: Specimen Exhibited No Hemolysis. Turbidity < 20 0-20 08/29/2016 4:2408/29/2016 5:52am Sodium Level 136 MEQ/L 134-144 08/29/2016 4:08/29/2016 5:52am Potassium Level 5.1 MEQ/L H 3.6-5 08/29/2016 4:08/29/2016 5:52am Chloride Level 105 MEQ/L 98-107 08/29/2016 4:08/29/2016 5:52am Carbon Dioxide Level 26 MEQ/L 22-30 08/29/2016 4:08/29/2016 5: 52am Anion Gap 5 MEQ/L 5-15 08/29/2016 4:08/29/2016 5:52am Blood Urea Nitrogen 16.0 MG/DL 7-08/29/2016 4:08/29/2016 5: 52am Creatinine 0.8 MG/DL 0.7-1.2 08/29/2016 4:08/29/2016 5:52am BUN/Creatinine Ratio 20 RATIO 6-08/29/2016 4:08/29/2016 5:52am Glomerular Filtration Rate Calc 70 08/29/2016 4:2408/29/2016 5: 52am Glucose Level 124 MG/DL H 65-110 08/29/2016 4:08/29/2016 5:52am Calculated Osmolality 264 MOSM/KG 261-280 08/29/2016 4:24am 08/29/2016 5:52am Calcium Level 8.8 MG/DL 8.4-10.2 08/29/2016 4:24am 08/29/2016 5:52am Urine Collection Type RODRIGUEZ INDWELLING 08/27/2016 4:57pm 2016 5:05pm Urine Color YELLOW YELLOW 08/27/2016 4:57pm 08/27/2016 5:05pm Urine Turbidity SL CLOUDY CLEAR 08/27/2016 4:57pm 08/27/2016 5:05pm Urine Specific [place] >=1.030 H 1.015-1.025 08/27/2016 4:57pm 2016 5:05pm Urine pH 5.5 5.0-8.0 08/27/2016 4:57pm 08/27/2016 5:05pm Urine Leukocyte Esterase NEGATIVE NEGATIVE 08/27/2016 4:57pm 2016 5:05pm Urine Nitrite NEGATIVE NEGATIVE 08/27/2016 4:57pm 08/27/2016 5:05pm Urine Protein 1+ A NEGATIVE 08/27/2016 4:57pm 08/27/2016 5:05pm Urine Glucose (UA) NEGATIVE NEGATIVE 08/27/2016 4:57pm 08/27/2016 5: 05pm Urine Ketones NEGATIVE NEGATIVE 08/27/2016 4:57pm 08/27/2016 5:05pm Urine Urobilinogen 0.2 EU/DL NORMAL 08/27/2016 4:57pm 08/27/2016 5: 05pm Urine Bilirubin NEGATIVE NEGATIVE 08/27/2016 4:57pm 08/27/2016 5: 05pm Urine Blood 3+ A NEGATIVE 08/27/2016 4:57pm 08/27/2016 5:05pm Urine WBC NONE SEEN /HPF 0-5 08/27/2016 4:57pm 08/27/2016 5:12pm Urine RBC TNTC /HPF H 0-3 08/27/2016 4:57pm 08/27/2016 5:12pm Urine Bacteria NONE SEEN NEGATIVE 08/27/2016 4:57pm 08/27/2016 5: 12pm Urine Culture Indicated CULT NOT INDICATED 08/27/2016 4:57pm 2016 5:12pm Name: LINNETTE OAKES Unit #: [id number] : 1940 Sex: F Admit Date: 08/26/16 Loc / Svc: SRG Discharge Date: DIAGNOSTIC IMAGING REPORT [facility] [id number]: ITS.REASON: hypoxia, RLL crackles PROCEDURE: CHEST 1 VIEW: Encounter: Initial Comparison: August 06, 2016 Findings: Chronic elevation of the left hemidiaphragm. Right lung appears grossly clear. No focal consolidation seen on the left. No pneumothorax or pleural effusion. Heart size and mediastinal contours are stable. Pulmonary vascularity appears normal. Impression: No pneumonia. . Procedures Procedure Status Date Provider(s) Breast tomosynthesis bi Completed 07/29/16 [id number]"SCREENING MAMMOGRAPHY, PRODUCING DIRECT DIGITAL IMAGE Completed Chest x-ray 2vw frontal&latl Completed 08/06/16 Total replacement of right knee joint Completed 08/26/16 ILEANA QUINTERO MD Encounters Encounter Location Arrival/Admit Date Discharge/Depart Date Attending Provider Discharged Inpatient [facility] 08/26/16 9:06am 08/29/16 2:31pm ILEANA QUINTERO MD Registered [facility] 08/06/16 2:07pm ROMY SORIA DO Registered [facility] 07/29/16 9:53am [facility]
--- OUTSIDE RECORDS SUMMARY | 2016-08-29 14:58 | XMS REPORT | Continuity of Care Document ---
Author Author [facility] Organization [facility] Address Unknown Phone Unavailable Support Name Relationship Address Phone MACIE YUNG MD Caregiver [facility] [address] [place] [place] [address] SHANNA CHRISTIANSON [address] [place] [address] [phone] ROMY SORIA DO Caregiver [address] [facility] [address] [place] [address] [phone] DINOVANESSA Next Of Kin [address] [place] [address] Insurance Providers Payer Name Policy Number Subscriber Name Relationship Medicare [id number] Linnette Oakes 18 Self [facility] [id number] Linnette Oakes 18 Self Advance Directives Directive Response Recorded Date/Time Advanced Directives Type None 12/22/13 8:02pm Ordered Resuscitation Status Full Code 12/21/13 11:22am Chief Complaint and Reason for Visit Chief Complaint ROBOTIC ESOPHAGEAL HERNIA REPAIR [id number] Reason for Visit New onset atrial flutter [...] F (96.8 - 99.1) Temperature (Calculated Celsius) 36.70176 degrees C (36.0 - 37.3) Temperature Source [...] potentially toxic. Vitamin D, 25-Hydroxy performed at [facility] Reference Lab, [address] [place] [address] Crumb Packer Taryn Nichole MD 25-Hydroxy Vitamin D2 October [...] 31, 2013 2:14pm LAB TEST FORM REQUEST [id number] - Lymphocytes # (Auto) December 31, 2013 [...] 31, 2013 4:23am 13.8 % H 0-9.0 KH-Wur-R-Type Natriuretic Peptide September 16, 2011 2:36pm 200 [...] 4.5 ug/dL - Thyroxine (T4) performed at [facility] Reference Lab, [address] [place] [address] Crumb Packer Taryn Nichole MD Total Bilirubin January 01, 2014 4:19am 0.40 MG/DL N 0.20-1.30 Total Creatine Kinase August 31, 2013 5:48am 105 U/L N 30-135 Total Protein January 01, 2014 4:19am 6.2 G/DL L 6.3-8.2 Triglycerides Level August 31, 2013 5:48am 183 MG/DL H 35-135 Triiodothyonine (T3) (AWAIS) February 24, 2013 6:38am 58 ng/dL L - T3 Total performed at [facility], [address], [place] [address]Medical Director Taryn Nichole MD Troponin I September [...] 5 DAYS Name: LINNETTE OAKES Unit #: [id number] : 1940 Sex: F Loc / Svc: CCU DOS: Signed Report #: [id number] DIAGNOSTIC IMAGING REPORT TYPE OF EXAM: CHEST [...] MD Encounters Encounter Location Date/Time Discharged Inpatient [facility] 12/22/13 6:30am Recent Diagnosis New onset atrial flutter Hypertension Hypothyroidism Status post Castillo fundoplication Hypomagnesemia Sleep apnea Hypoxia PAT (paroxysmal atrial tachycardia) Volume overload Pulmonary hypertension Tricuspid regurgitation Pulmonary emboli Hypokalemia Acute respiratory failure with hypoxia
--- OUTSIDE RECORDS SUMMARY | 2016-08-29 15:00 | XMS REPORT | Continuity of Care Document ---
Author Author [facility] Organization [facility] Address Unknown Phone Unavailable Support Name Relationship Address Phone PIOTR DIANA MD Caregiver [facility] [address] [place] [address] ROMY SORIA DO Caregiver [address] [place] [address] [phone] VANESSA SUN Next Of Kin [address] [place] [address] Insurance Providers Payer Name Policy Number Subscriber Name Relationship Medicare [id number] Linnette Oakes 18 Self [employer] [facility] [id number] Linnette Oakes 18 Self Advance Directives Directive [...] F (96.8 - 99.1) Temperature (Calculated Celsius) 35.32583 degrees C (36.0 - 37.3) Pulse Rate [...] potentially toxic. Vitamin D, 25-Hydroxy performed at [facility] Reference Lab, [facility] [place] [address] Dinkey Locomotive Engineer Taryn Nichole MD 25-Hydroxy Vitamin D2 October [...] 31, 2013 2:14pm LAB TEST FORM REQUEST [id number] - Lymphocytes # (Auto) December 31, 2013 [...] 31, 2013 4:23am 13.8 % H 0-9.0 PO-Imw-V-Type Natriuretic Peptide September 16, 2011 2:36pm 200 [...] 4.5 ug/dL - Thyroxine (T4) performed at [facility] Reference Lab, [address] [place], [place] [id number] Dinkey Locomotive Engineer Taryn Nichole MD Total Bilirubin January 01, 2014 4:19am 0.40 MG/DL N 0.20-1.30 Total Creatine Kinase August 31, 2013 5:48am 105 U/L N 30-135 Total Protein January 01, 2014 4:19am 6.2 G/DL L 6.3-8.2 Triglycerides Level August 31, 2013 5:48am 183 MG/DL H 35-135 Triiodothyonine (T3) (AWAIS) February 24, 2013 6:38am 58 ng/dL L - T3 Total performed at [facility], [address] [place], [place] [address]Aeoxwlt Director Tayrn Nichole MD Troponin I September 16, 2011 [...] procedures. Encounters Encounter Location Date/Time Discharged Inpatient [facility] 07/25/14 6:44am Recent Diagnosis Fasting hypoglycemia Prediabetes
[2016-08-29 15:04] VITALS: BP 123/58; PULSE 92; RESP 18; TEMP 98.3; O2SAT 91
[2016-08-29 15:05] VITALS: Ht 170.2 cm; Wt 87.3 kg
[2016-08-29] MEDS ORDERED: PRN ORDERS MC (17:00)
--- NOTE | 2016-08-29 17:00 | NUR ---
CONSULT NOTIFIED SPOKE WITH DR GUTIERREZ ON IRU UNIT, NOTIFIED HER OF MEDICAL CONSULT FOR PATIENT.
--- NOTE | 2016-08-29 17:04 | HPPDOC ---
HPI Date DATE: 08/29/16 TIME: 17:00 General Chief Complaint: RTKA History of Present Illness 75 yo female s/p R TKA with weakness and pain post op. Pt unable to return home to care for self due to pain and weakness. She is requiring assist with ADL and is not safe on her own. She plans to return home after treatment. She fell, injuring right knee which already had sig pain and osteoarthritis. R TKA performed. Past Medical History Surgical History Patient's Surgical History: 08/27/16 - Rt knee arthroplasty (Dr. Medina) 03/20/16 - Rt knee arthroscopy, PMM, PLM (Dr. Medina) 12/22/13 - Robotic hiatal hernia repair with mesh reinforcement; Robotic Castillo fundoplication; lysis of adhesions (Dr. Yung) 02/04/13 - Phacoemulsification with implantation of intraocular lens right eye (Dr. Martinez) 10/26/12 - EGD - Large sliding hiatal hernia (Dr. 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 (Dr. Gentile) 06/06/08 - B/L reduction mammoplasty (Dr. 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 - cholecystectomy AP repair Hysterectomy Current Medications Home Meds Active Scripts Sennosides (Senna) 8.6 Mg Tablet, 17.2 MG PO DAILY Y for CONSTIPATION for 7 Days , #14 TAB Prov:HAILEY MARINO 08/29/16 Magnesium Hydroxide (Milk of Magnesia) 400 Mg/5 Ml Oral.susp, 30 ML PO DAILY Y for CONSTIPATION for 14 Days Prov:HAILEY MARINO 08/29/16 Docusate Sodium (Colace) 100 Mg Capsule, 100 MG PO BID, #60 CAP Prov:HAILEY MARINO 08/29/16 Polyethylene Glycol 3350 (Healthylax) 17 Gm Powd.pack, 17 G PO DAILY, #30 PACKET Prov:АНДРЕЙ AMIN 08/27/16 Oxycodone HCl (Oxycodone HCl) 5 Mg Tablet, 5-15 MG PO Q3H Y for BREAKTHROUGH PAIN, #60 TAB Prov:АНДРЕЙ AMIN 08/27/16 Acetaminophen (Tylenol) 325 Mg Tablet, 650 MG PO QID, #100 TAB Prov:АНДРЕЙ AMIN 08/27/16 Reported Medications Levothyroxine Sodium (Levothyroxine Sodium) 175 Mcg Tablet, 175 MCG PO ACB Thu& Thu, TAB Once daily before breakfast on Thursday and Thursday. 08/05/16 Acyclovir (Zovirax) 200 Mg Capsule, 200 MG PO DAILY, CAP 08/04/16 Timolol Maleate (Timolol Maleate) 5 Ml Drops, 1 DROP LEFT EYE DAILY 08/04/16 Potassium Chloride (Klor-Con 8) 8 Meq Tablet, 1 TAB PO HS 08/04/16 Furosemide (Furosemide) 20 Mg Tablet, 1 TAB PO DAILY 08/04/16 Atorvastatin Calcium (Atorvastatin Calcium) 80 Mg Tablet, 80 MG PO HS 10/28/15 Rivaroxaban (Xarelto) 20 Mg Tablet, 20 MG PO HS 10/28/15 Levothyroxine Sodium (Levothyroxine Sodium) 150 Mcg Tablet, 150 MCG PO SuTuWeThSa One tablet with breakfast everyday except Thursday and Thursday. 10/28/15 Flecainide Acetate (Flecainide Acetate) 50 Mg Tablet, 50 MG PO BID 10/28/15 Cholecalciferol (Vitamin D3) (Vitamin D) 2,000 Unit Tablet, 2000 UNIT PO HS 10/28/15 Citalopram Hydrobromide (Citalopram HBr) 40 Mg Tablet, 40 MG PO HS 10/28/15 Calcium Carbonate (Calcium) 1 Tab Tablet, 500 MG PO BID 06/06/08 Discontinued Reported Medications Lisinopril (Lisinopril) 10 Mg Tablet, 10 MG PO DAILY 10/28/15 Allergies: Coded Allergies: pentazocine (Verified Allergy, Intermediate, HALLUCINATIONS, 03/20/16) Sulfa (Sulfonamide Antibiotics) (Verified Allergy, Unknown, 08/18/16) FROM H&P DATED 08-05-16 cortisone (Verified Allergy, Unknown, SWELLING, ITCHING, 08/04/16) onabotulinumtoxinA (Verified Adverse Reaction, Intermediate, SWELLING, ITCHING, 08/04/16) 08-04-16 STates reaction was from cortisone injection in knee, not Botox Presented to ED on 12/28/15 with symptoms erythromycin base (Verified Adverse Reaction, Mild, NAUSEA, 03/20/16) STATES CAN NOW TAKE IF EATS BEFORE TAKING Family History Family History: Thyroid disase, stroke, diabetes, dyslipidemia Cancer - bladder, brain, stomach, glandular Social History Smoking Status: Never smoker Does patient use chewing tobac: No # of Packs/Tins per Day: 1 # of Years: 25 Second Hand Exposure: No Substance Use Type: does not use Alcohol Intake: occasionally Marital Status: Advance Directives: No DPOA for Healthcare Only Review of Systems Musculoskeletal General: see HPI All Other Systems All Other Systems: Reviewed Physical Exam General General Nourishment: well nourished, well developed, adult Vital Signs Vital Signs Date Time Temp Pulse Resp B/P Pulse Ox O2 Delivery O2 Flow Rate FiO2 08/29/16 15:04 98.3 92 18 123/58 91 Nasal Cannula 2.00 Height (Feet): 5 Height (Inches): 7.00 Eyes Brief: FOUND: EOMI, PERRL Respiratory Brief: FOUND: clear all schulz, equal bilaterally, NOT FOUND: rales Cardiovascular (brief) Cardiac Brief: FOUND: regular rate, regular rhythm Abdomen (brief) Abdominal Brief: FOUND: BS normo active x4, soft, NOT FOUND: tender Musculoskeletal (brief) Comments incision clean and dry, pt using polar ice pack. Neurologic RN Documented GCS Eye Opening: Verbal: Motor: Total: Assessment & Plan Problems: (1) S/P total knee arthroplasty Assessment & Plan: PT and OT to work with pt to develop plan of care. (2) Diabetes Status: Chronic Assessment & Plan: managed by medical. (3) Anemia following surgery Status: Acute Assessment & Plan: managed by medical. Code Status Full Code Interventions to Obtain Goals PT Treatment Plan: Therapeutic Exercise, Gait Training, Functional Activities , Patient/Family Education, Balance/Proprioception OT Treatment Plan: ADL's (basic care), Ther. Exercise for ADL's, UE Functional Training, Balance Training, Pt./Family Education, IADL's Hospital Course Summary Disclaimer The hospital course summary below is not to be considered part of the above Progress Note. ANDREW BANSAL MD Aug 29, 2016 17:04
--- NOTE | 2016-08-29 17:06 | IRU24PDOC ---
24 Hour Post Admission Eval Relevant Changes Relevant Changes: No I have reviewed the patient's information and concur with the finding and results of the pre-admission screen. Certification I certify the patient for rehabilitation. Patient Condition Prior Medical Conditions: (1) S/P total knee arthroplasty Additional Information: PT and OT to work with pt to develop plan of care. (2) Diabetes Status: Chronic Additional Information: managed by medical. (3) Anemia following surgery Status: Acute Additional Information: managed by medical. Current Medical Conditions: (1) S/P total knee arthroplasty Additional Information: PT and OT to work with pt to develop plan of care. (2) Diabetes Status: Chronic Additional Information: managed by medical. (3) Anemia following surgery Status: Acute Additional Information: managed by medical. Prior Functional Condition Lives With: Alone Residence Type: Private home/apartment Assistive Devices: No Assistive Device Prior Functional Status: Indep. at home or school Current Functional Status Failed Alternative Therapy Tri: Arrived from acute care Patient Requirements * Patient has been determined to have significant functional limitations requiring at least two therapy disciplines. * Rehabilitation medical practitioner will provide admission approval, assessment and oversight and program coordination at least daily. * Intensive rehabilitative nursing services on site and available 24 hours a day. * The treatment plan will be developed within 24 hours of admission. * Interdisciplinary and goal oriented treatment by professional nursing, neonatal social worker, and rehabilitation therapist. * Interdisciplinary team meeting weekly inclusive of ongoing comprehensive discharge planning. First team meeting by day seven. Weekly meetings to follow. * Rehab Physician is the team meeting leader. * Pharmacy and diagnostic services will be available. * Ongoing comprehensive rehab program with at least 2 disciplines and greater than or equal to 3 hours a day, 5 days a week. Limitations require: limited mobility, ADL impairment Physical Therapy Minutes: 90 Occupational Therapy Minutes: 90 Therapy The patient is to receive therapy at least 5 days a week. Current Functional Status: Using assistive device PT Treatment Plan: Therapeutic Exercise, Gait Training, Functional Activities , Patient/Family Education, Balance/Proprioception Treatment Plan Frequency: five times per week Treatment Plan Duration: two weeks Plan of Care Comment: 6x/wk for 1st wk; 5x/wk for 2nd and 3rd wks. OT Treatment Plan: ADL's (basic care), Ther. Exercise for ADL's, UE Functional Training, Balance Training, Pt./Family Education, IADL's OT Treatment Plan Frequency: five times per week OT Treatment Plan Duration: three weeks ROM Deficit: Right Lower Extremity ROM Comment: R LE limited d/t recent R TKA; L LE is grossly WFL; see OT eval for UE ROM R knee extension: -15 degrees R knee flexion: 76 degrees Muscle Weakness Location: Right Lower Extremity Complication/Comorbidities Patient Complication Risk: (1) S/P total knee arthroplasty Comments: PT and OT to work with pt to develop plan of care. (2) Diabetes Status: Chronic Comments: managed by medical. (3) Anemia following surgery Status: Acute Comments: managed by medical. Impact on Functional Outcomes Should return to presurgery status Barriers to Discharge: weakness, balance, pain control Plan to Avoid Complications Plan to Avoid Complications The patient cannot receive this care in a lesser intensive setting such as Fdc or Outpatient Therapy due to the patient requiring the following []. The patient requires oversight by a rehabilitation physician to manage their rehabilitation treatment plan and the multidisciplinary approach to care that can only be provided in an IRF and requires a multidisciplinary approach to care , provided by professional PTs, OTs, STs, dieticians, RTs, rehabilitation nurses and is not available in lesser levels of care. The frequency and duration for therapy, as recommended by the professional Rehabilitation therapists, meet the patient's initial rehabilitation treatment plan needs and will be further evaluated on a weekly basis for progress and/or changes needed. ANDREW BANSAL MD Aug 29, 2016 17:06
[2016-08-29] MEDS ORDERED: SENNOSIDES 8.6 MG TABLET PO PRN (17:15)
[2016-08-29] MEDS ORDERED: MILK OF MAGNESIA 30 ML SUSP PO PRN (17:15)
[2016-08-29] MEDS: RIVAROXABAN 20 MG TABLET PO SCH (18:19)
[2016-08-29] MEDS ORDERED: BISACODYL 10 MG SUPPOSITORY RECTALLY PRN (18:45)
--- NOTE | 2016-08-29 19:00 | NUR ---
SHIFT SUMMARY PATIENT ALERT AND ORIENTED X 3. COMPLAINS PAIN IN R KNEE, PRN PAIN MEDICATION AND POLAR PACK PROVIDING ADEQUATE PAIN RELIEF. PATIENT UP WITH ONE WITH GAIT BELT AND FRONT WHEEL WALKER. REPORTS NO BM SINCE SX. SUPPOSITORY GIVEN, SEE MAR. PATIENT C/O DECREASED APPETITE, ATE 50% DINNER. PATIENT CONTINENT OF URINE, VOIDED, URINE CLEAR YELLOW. WILL CONT TO MONITOR.
[2016-08-29] MEDS: OXYCODONE I.R. 5 MG TABLET PO PRN ×2 (19:27→23:23)
[2016-08-29] MEDS: FLECAINIDE 50 MG TABLET PO SCH (20:45)
[2016-08-29] MEDS: SENNA + DOCUSATE TAB PO SCH (20:45)
[2016-08-29] MEDS: ACETAMINOPHEN 325 MG TABLET PO SCH (20:46)
[2016-08-29] MEDS: POTASSIUM CHLORIDE 10 MEQ TABLET PO SCH ×2 (20:46→22:00)
[2016-08-29] MEDS: ATORVASTATIN 40 MG TABLET PO SCH (20:47)
[2016-08-29] MEDS: CHOLECALCIFEROL 1,000 UNIT TABLET PO SCH (20:47)
[2016-08-29 20:55] VITALS: PULSE 88; RESP 22
[2016-08-29] MEDS: CALCIUM 500 MG TABLET PO SCH (20:55)
[2016-08-29] MEDS ORDERED: DOCUSATE SODIUM 100 MG CAPSULE PO SCH ×2 (21:00)
[2016-08-30 01:03] VITALS: BP 124/65; PULSE 88; RESP 22; TEMP 99.8; O2SAT 87
[2016-08-30 01:06] VITALS: O2SAT 91
[2016-08-30] MEDS: OXYCODONE I.R. 5 MG TABLET PO PRN ×4 (02:13→20:23)
[2016-08-30 05:33] LABS: HCT - HEMATOCRIT 24.8 % (36-46); HGB - HEMOGLOBIN 7.8 GM/DL (12-16); MEAN CORPUSCULAR HGB 31.7 UUG (26-34); MEAN CORPUSCULAR HGB CONC(MCHC 31.5 GM/DL (31-37); MEAN CORPUSCULAR VOLUME 100.8 UM3 (80-100); MEAN PLATELET VOLUME 10.2 UM3 (9.4-12.4); RED BLOOD COUNT 2.46 M/MM3 (4.00-5.20); WBC - WHITE BLOOD COUNT 11.4 T/MM3 (4.5-11.0)
[2016-08-30 05:40] LABS: ANION GAP 6 MEQ/L (5-15); BUN/CREATININE RATIO 21 RATIO (6-26); CALCIUM 8.6 MG/DL (8.4-10.2); CHLORIDE 103 MEQ/L (98-107); CO2 - CARBON DIOXIDE 26 MEQ/L (22-30); CREATININE 0.8 MG/DL (0.7-1.2); GLOMERULAR FILTRATION RATE 70; GLUCOSE 112 MG/DL (65-110); POTASSIUM 5.1 MEQ/L (3.6-5); SODIUM 135 MEQ/L (134-144)
[2016-08-30 06:26] LABS: EOSINOPHILS # (MANUAL) 0.1 T/MM3 (0-0.5); LYMPHOCYTES # (MANUAL) 2.6 T/MM3 (1-4.8); MONOCYTES # (MANUAL) 0.8 T/MM3 (0-0.8); NEUTROPHILS #(MANUAL)-ABSOLUTE 7.9 T/MM3 (1.8-7.7); TOTAL CELLS COUNTED 100 %
[2016-08-30 06:27] LABS: ANISOCYTOSIS 1+; POIKILOCYTOSIS 1+
[2016-08-30] MEDS: LEVOTHYROXINE 150 MCG TABLET PO SCH (06:38)
--- NOTE | 2016-08-30 08:32 | NUR ---
Summary Linnette is pleasant cooperative alert and orientated .She has reported pain to her right knee and has been medicated x two with Oxycodone IR 5 MG. Scheduled Acetaminophen QID was also given. Polar pack was applied and kept in place for most of the night.VSS except for the SAO2 which was under 90% ,o2 was increased to 3L/nc from 2L/nc and bubbler was applied. This increase brought the sao2 up to 91%.She ambulates and transfers with fww gb and stand by assist of one staff. Her gait is steady.She has been continent of bladder and bowel with hygiene and clothing management of patient.Dressing to left knee CDI. SCD's to bilateral lower extremities.SR up x two and bedalarms intact when in bed.Noted bruising to both legs and to left arm. Patient states she fell prior to having surgery.Noted edema to right lower extremity.
[2016-08-30 08:38] VITALS: BP 137/79; PULSE 89; RESP 20; TEMP 99.8; O2SAT 97
[2016-08-30 08:39] VITALS: PULSE 89; RESP 20
[2016-08-30] MEDS: POLYETHYL.GLYCOL 3350 PACKET 17gm PO SCH (09:00)
[2016-08-30] MEDS: FLECAINIDE 50 MG TABLET PO SCH ×2 (09:09→20:25)
[2016-08-30] MEDS: ACETAMINOPHEN 325 MG TABLET PO SCH ×4 (09:10→22:17)
[2016-08-30] MEDS: ACYCLOVIR 200 MG CAPSULE PO SCH (09:10)
[2016-08-30] MEDS: FUROSEMIDE 20 MG TABLET PO SCH (09:11)
[2016-08-30] MEDS: CALCIUM 500 MG TABLET PO SCH ×2 (09:11→20:23)
[2016-08-30] MEDS: SENNA + DOCUSATE TAB PO SCH ×2 (09:11→20:23)
[2016-08-30] MEDS: TIMOLOL 0.5% EYE DROPS 5ml LEFT EYE SCH (09:13)
--- NOTE | 2016-08-30 13:44 | CONSPD ---
LORAINE BALBUENA V JAWBONE BREAKER 08/30/16 1333: Consultation Info Date DATE: 08/30/16 TIME: 13: Date of Consultation: Aug 30, 2016 Attending Physician: Osiel Reason for Consultation: hypoxia, proximal atrial fibrillation HPI - Adult Date DATE: 08/30/16 TIME: 13:27 General Chief Complaint: RTKA History of Present Illness Naomy is a pleasant 75-year-old female who was admitted under the orthopedic team on 08/26/16 for elective surgery of the right knee. Given end-stage degenerative joint disease with failed outpatient treatment. She underwent a right total knee arthroplasty by Dr. Medina and tolerated this well. Postoperatively, she did have some hypotension in which the medical hospitalist team was consulted. She also had postoperative hypoxia and has continued to require oxygen by nasal cannula. She was admitted to the inpatient rehabilitation unit yesterday 08/29/16 for ongoing therapy and postoperative strengthening. Did review this morning's laboratory studies. The WBC count still slightly elevated at 11.4, RBCs 2.46, hemoglobin low at 7.8. This is slightly down from yesterday in which she was 8.2. Sodium today 135, potassium 5.1, BUN 17, creatinine 0.8. She has continued to require oxygen between 3 and 4 liters to maintain adequate saturations. She was seen and examined this afternoon for initial medical consultation. She is up sitting on the edge of the bed with family at the bedside. She is alert, oriented and pleasant. She reports that he is having some moderate right knee discomfort and skin tightness following working with therapy and ambulation. She feels like her pain is being well controlled with oxycodone and Tylenol. No difficulty with urination and bowels moved last evening. Temperature this morning was 99.8. Past Medical History Past Medical History Proximal atrial fibrillation Chronic anticoagulation-Xarelto Hypothyroidism Hypertension Diabetes Glaucoma. Sleep apnea-uses BiPAP at night Hyperlipidemia Pulmonary hypertension Chronic paralyzed team and diaphragm Restless leg syndrome Osteopenia Surgical History Patient's Surgical History: 08/27/16 - Rt knee arthroplasty (Dr. Medina) 03/20/16 - Rt knee arthroscopy, PMM, PLM (Dr. Medina) 12/22/13 - Robotic hiatal hernia repair with mesh reinforcement; Robotic Castillo fundoplication; lysis of adhesions (Dr. Yung) 02/04/13 - Phacoemulsification with implantation of intraocular lens right eye (Dr. Martinez) 10/26/12 - EGD - Large sliding hiatal hernia (Dr. 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 (Dr. Gentile) 06/06/08 - B/L reduction mammoplasty (Dr. 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 - cholecystectomy AP repair Hysterectomy Current Medications Home Meds Active Scripts Sennosides (Senna) 8.6 Mg Tablet, 17.2 MG PO DAILY Y for CONSTIPATION for 7 Days , #14 TAB Prov:HAILEY MARINO 08/29/16 Magnesium Hydroxide (Milk of Magnesia) 400 Mg/5 Ml Oral.susp, 30 ML PO DAILY Y for CONSTIPATION for 14 Days Prov:HAILEY MARINO 08/29/16 Docusate Sodium (Colace) 100 Mg Capsule, 100 MG PO BID, #60 CAP Prov:HAILEY MARINO 08/29/16 Polyethylene Glycol 3350 (Healthylax) 17 Gm Powd.pack, 17 G PO DAILY, #30 PACKET Prov:АНДРЕЙ AMIN 08/27/16 Oxycodone HCl (Oxycodone HCl) 5 Mg Tablet, 5-15 MG PO Q3H Y for BREAKTHROUGH PAIN, #60 TAB Prov:АНДРЕЙ AMIN 08/27/16 Acetaminophen (Tylenol) 325 Mg Tablet, 650 MG PO QID, #100 TAB Prov:АНДРЕЙ AMIN 08/27/16 Reported Medications Levothyroxine Sodium (Levothyroxine Sodium) 175 Mcg Tablet, 175 MCG PO ACB Mon& Thu, TAB Once daily before breakfast on Thursday and Thursday. 08/05/16 Acyclovir (Zovirax) 200 Mg Capsule, 200 MG PO DAILY, CAP 08/04/16 Timolol Maleate (Timolol Maleate) 5 Ml Drops, 1 DROP LEFT EYE DAILY 08/04/16 Potassium Chloride (Klor-Con 8) 8 Meq Tablet, 1 TAB PO HS 08/04/16 Furosemide (Furosemide) 20 Mg Tablet, 1 TAB PO DAILY 08/04/16 Atorvastatin Calcium (Atorvastatin Calcium) 80 Mg Tablet, 80 MG PO HS 10/28/15 Rivaroxaban (Xarelto) 20 Mg Tablet, 20 MG PO HS 10/28/15 Levothyroxine Sodium (Levothyroxine Sodium) 150 Mcg Tablet, 150 MCG PO SuTuWeThSa One tablet with breakfast everyday except Thursday and Thursday. 10/28/15 Flecainide Acetate (Flecainide Acetate) 50 Mg Tablet, 50 MG PO BID 10/28/15 Cholecalciferol (Vitamin D3) (Vitamin D) 2,000 Unit Tablet, 2000 UNIT PO HS 10/28/15 Citalopram Hydrobromide (Citalopram HBr) 40 Mg Tablet, 40 MG PO HS 10/28/15 Calcium Carbonate (Calcium) 1 Tab Tablet, 500 MG PO BID 06/06/08 Discontinued Reported Medications Lisinopril (Lisinopril) 10 Mg Tablet, 10 MG PO DAILY 10/28/15 Allergies: Coded Allergies: pentazocine (Verified Allergy, Intermediate, HALLUCINATIONS, 03/20/16) Sulfa (Sulfonamide Antibiotics) (Verified Allergy, Unknown, 08/18/16) FROM H&P DATED 08-05-16 cortisone (Verified Allergy, Unknown, SWELLING, ITCHING, 08/04/16) onabotulinumtoxinA (Verified Adverse Reaction, Intermediate, SWELLING, ITCHING, 08/04/16) 08-04-16 STates reaction was from cortisone injection in knee, not Botox Presented to ED on 12/28/15 with symptoms erythromycin base (Verified Adverse Reaction, Mild, NAUSEA, 03/20/16) STATES CAN NOW TAKE IF EATS BEFORE TAKING Family History Family History: Thyroid disase, stroke, diabetes, dyslipidemia Cancer - bladder, brain, stomach, glandular Social History Smoking Status: Former smoker Does patient use chewing tobac: No # of Packs/Tins per Day: 1 # of Years: 25 Second Hand Exposure: No Substance Use Type: does not use Alcohol Intake: occasionally Marital Status: Advance Directives: Yes Full Code, No DPOA for Healthcare Only Social History Comments PCP Dr Alexander Review of Systems Constitutional: REPORTS: appetite decrease, fatigue Cardiovascular Vascular: pedal edema (Right lower ext edema- postop) Pulmonary Respiratory: cough Musculoskeletal General: pain (right knee) All Other Systems All Other Systems: Reviewed (remainder of 10-point ROS Neg.) Physical Exam General General Nourishment: well nourished, well developed Vital Signs Vital Signs Date Time Temp Pulse Resp B/P Pulse Ox O2 Delivery O2 Flow Rate FiO2 08/30/16 08:39 89 20 08/30/16 08:38 99.8 137/79 97 Nasal Cannula 4.00 Height (Feet): 5 Height (Inches): 7.00 Eyes Brief: FOUND: PERRL Comments Mild course breath sounds Cardiovascular (brief) Cardiac Brief: FOUND: pedal edema (Right knee and leg edema), regular rate, regular rhythm, NOT FOUND: murmur Abdomen (brief) Abdominal Brief: FOUND: BS normo active x4, soft, NOT FOUND: distended, tender Musculoskeletal (brief) Musculoskeletal Brief: FOUND: tenderness (Right knee) Integumentary (brief) Integumentary Brief: FOUND: dry, pink, warm Neurologic (brief) Neurological Brief: FOUND: cranial 2-12 intact Neurologic RN Documented GCS Eye Opening: Verbal: Motor: Total: Psychiatric (brief) FOUND: alert, attentive, normal affect, oriented Laboratory Laboratory Tests Test 08/30/16 04:47 White Blood Count 11.4T/MM3 Red Blood Count 2.46M/MM3 Hemoglobin 7.8GM/DL Hematocrit 24.8% Mean Corpuscular Volume 100.8UM3 Mean Corpuscular Hemoglobin 31.7UUG Mean Corpuscular Hemoglobin Concent 31.5GM/DL RDW Standard Deviation 49.1FL Platelet Count 195T/MM3 Mean Platelet Volume 10.2UM3 Immature Granulocyte % (Auto) % Neutrophils (%) (Auto) % Lymphocytes (%) (Auto) % Monocytes (%) (Auto) % Eosinophils (%) (Auto) % Basophils (%) (Auto) % Absolute Immature Granulocyte (auto T/MM3 Absolute Neutrophils (auto) T/MM3 Absolute Lymphocytes (auto) T/MM3 Absolute Monocytes (auto) T/MM3 Absolute Eosinophils (auto) T/MM3 Absolute Basophils (auto) T/MM3 Neutrophils % (Manual) 69.0% Lymphocytes % (Manual) 23.0% Monocytes % (Manual) 7.0% Eosinophils % (Manual) 1.0% Absolute Neutrophils (Manual) 7.9T/MM3 Lymphocytes # (Manual) 2.6T/MM3 Monocytes # (Manual) 0.8T/MM3 Eosinophils # (Manual) 0.1T/MM3 Poikilocytosis 1+ Anisocytosis 1+ Red Cell Morphology Comment Abnormal Turbidity < 20 Sodium Level 135MEQ/L Potassium Level 5.1MEQ/L Chloride Level 103MEQ/L Carbon Dioxide Level 26MEQ/L Anion Gap 6MEQ/L Blood Urea Nitrogen 17.0MG/DL Creatinine 0.8MG/DL Glomerular Filtration Rate Calc 70 BUN/Creatinine Ratio 21RATIO Glucose Level 112MG/DL Calculated Osmolality 263MOSM/KG Calcium Level 8.6MG/DL Icterus Index < 2 Chemistry Specimen Hemolysis < 15 Impression/Recommendation Problems: (1) S/P total knee arthroplasty Status: Acute Qualifiers: Laterality: right Qualified Codes: Z96.651 - Presence of right artificial knee joint (2) Anemia following surgery Status: Acute Assessment & Plan: Hgb today 7.8 (3) Leukocytosis Status: Acute Assessment & Plan: Continues to trend down (4) Hypertension Status: Chronic (5) Paroxysmal atrial fibrillation Status: Chronic (6) Paralyzed hemidiaphragm Status: Chronic (7) Pulmonary hypertension Status: Chronic (8) Hyperlipemia Status: Chronic (9) Diabetes Status: Chronic (10) Glaucoma, left eye (11) Sleep apnea Status: Chronic (12) Obesity (BMI 30-39.9) Status: Chronic Recommendation Continue with Inpatient rehabilitation treatment as per Dr Smith In light of continued hypoxia will obtain Chest X-ray today. Will work on weaning off oxygen as able. Encourage use of routine incentive spirometry. Will follow hemoglobin closely as patient does have postop anemia. Hgb today is 7.8. Lillie with current pain regimen including oxycodone and Tylenol. Encourage patient to elevate her right leg and knee and utilize Polar Pack to help with inflammation and swelling. Senna plus scheduled twice a day for ongoing bowel motivation. Will hold oral potassium given mild Hyperkalemia. Will recheck BMP tomorrow morning Continue on chronic Xarelto for anticoagulation and chronic proximal atrial fibrillation. Encourage continued work with PT/OT for ongoing post-op strengthening and function improvement Appreciate medical consultation. The hospitalist services will continue to follow patient and medical management of her existing comorbidities. At time of discharge her medical care will return to her primary care provider, BARRY Flores MD 08/30/16 1421: Past Medical History Current Medications Home Meds Active Scripts Sennosides (Senna) 8.6 Mg Tablet, 17.2 MG PO DAILY Y for CONSTIPATION for 7 Days , #14 TAB Prov:HAILEY MARINO 08/29/16 Magnesium Hydroxide (Milk of Magnesia) 400 Mg/5 Ml Oral.susp, 30 ML PO DAILY Y for CONSTIPATION for 14 Days Prov:HAILEY MARINO 08/29/16 Docusate Sodium (Colace) 100 Mg Capsule, 100 MG PO BID, #60 CAP Prov:HAILEY MARINO 08/29/16 Polyethylene Glycol 3350 (Healthylax) 17 Gm Powd.pack, 17 G PO DAILY, #30 PACKET Prov:АНДРЕЙ AMIN 08/27/16 Oxycodone HCl (Oxycodone HCl) 5 Mg Tablet, 5-15 MG PO Q3H Y for BREAKTHROUGH PAIN, #60 TAB Prov:АНДРЕЙ AMIN 08/27/16 Acetaminophen (Tylenol) 325 Mg Tablet, 650 MG PO QID, #100 TAB Prov:АНДРЕЙ AMIN 08/27/16 Reported Medications Levothyroxine Sodium (Levothyroxine Sodium) 175 Mcg Tablet, 175 MCG PO ACB Thu& Thu, TAB Once daily before breakfast on Thursday and Thursday. 08/05/16 Acyclovir (Zovirax) 200 Mg Capsule, 200 MG PO DAILY, CAP 08/04/16 Timolol Maleate (Timolol Maleate) 5 Ml Drops, 1 DROP LEFT EYE DAILY 08/04/16 Potassium Chloride (Klor-Con 8) 8 Meq Tablet, 1 TAB PO HS 08/04/16 Furosemide (Furosemide) 20 Mg Tablet, 1 TAB PO DAILY 08/04/16 Atorvastatin Calcium (Atorvastatin Calcium) 80 Mg Tablet, 80 MG PO HS 10/28/15 Rivaroxaban (Xarelto) 20 Mg Tablet, 20 MG PO HS 10/28/15 Levothyroxine Sodium (Levothyroxine Sodium) 150 Mcg Tablet, 150 MCG PO SuTuWeThSa One tablet with breakfast everyday except Thursday and Thursday. 10/28/15 Flecainide Acetate (Flecainide Acetate) 50 Mg Tablet, 50 MG PO BID 10/28/15 Cholecalciferol (Vitamin D3) (Vitamin D) 2,000 Unit Tablet, 2000 UNIT PO HS 10/28/15 Citalopram Hydrobromide (Citalopram HBr) 40 Mg Tablet, 40 MG PO HS 10/28/15 Calcium Carbonate (Calcium) 1 Tab Tablet, 500 MG PO BID 06/06/08 Discontinued Reported Medications Lisinopril (Lisinopril) 10 Mg Tablet, 10 MG PO DAILY 10/28/15 Allergies: Coded Allergies: pentazocine (Verified Allergy, Intermediate, HALLUCINATIONS, 03/20/16) Sulfa (Sulfonamide Antibiotics) (Verified Allergy, Unknown, 08/18/16) FROM H&P DATED 08-05-16 cortisone (Verified Allergy, Unknown, SWELLING, ITCHING, 08/04/16) onabotulinumtoxinA (Verified Adverse Reaction, Intermediate, SWELLING, ITCHING, 08/04/16) 08-04-16 STates reaction was from cortisone injection in knee, not Botox Presented to ED on 12/28/15 with symptoms erythromycin base (Verified Adverse Reaction, Mild, NAUSEA, 03/20/16) STATES CAN NOW TAKE IF EATS BEFORE TAKING Impression/Recommendation Impression I have independently evaluated and examined this patient. I reviewed the chart, the patient's history, and the JAWBONE BREAKER's documented findings as above. We discussed and formulated the assessment and plan as above with additions as below: Mrs. Vu reports that her legs are achy after physical therapy this morning. She noted that she was more short of breath with activity than she anticipated. She is concerned about persistent edema in her legs and increased weight. Nursing reports bowel movement yesterday but that oxygen demands increased to 3 L. The patient reports her usual weight is 183 pounds compared to current weight of 199. Patient is good airflow on examination and breath sounds are clear although somewhat diminished at the bases. There is +1 edema on the right with trace edema in the left toes. Mild residual hyperkalemia-anticipate improvement with resumption of diuretics. Weight is significantly above baseline if weight is accurate, yesterday's weight was 2 pounds higher than today's. Renal function remained stable as does blood pressure. May require more aggressive diuresis. Reassess weight tomorrow morning, if greater than 86 kg will give IV Lasix. Initiate iron supplement for postoperative anemia. Add [place] due to patient described minor epistaxis. In addition to above problems please add: #1 hyperkalemia #2 acute kidney injury, improved #3 constipation #4 epistaxis LORAINE BALBUENA V JAWBONE BREAKER Aug 30, 2016 13:33 BARRY GUTIERREZ MD Aug 30, 2016 14:21
[2016-08-30 16:15] VITALS: BP 110/57; PULSE 83; RESP 22; TEMP 98.6; O2SAT 92
[2016-08-30] MEDS: RIVAROXABAN 20 MG TABLET PO SCH (17:49)
[2016-08-30] MEDS: SALINE NASAL SPRAY 45ml EA NOSTRIL PRN ×2 (17:51→22:24)
--- NOTE | 2016-08-30 18:49 | NUR ---
SHIFT SUMMARY PT HAS BEEN PLEASANT AND COOPERATIVE. HAS BEEN OUT TO DINING ROOM FOR ALL MEALS. PT WORKED WITH THERAPY THIS MORNING. PT HAS REPORTED PAIN AT A 3-6/10. HAD 2 DOSES OF PRN YURY. AND SCHEDULED TYLENOL. PT AMBULATES WITH FWW AND GAIT BELT.
[2016-08-30] MEDS: ATORVASTATIN 40 MG TABLET PO SCH (20:24)
[2016-08-30] MEDS: CHOLECALCIFEROL 1,000 UNIT TABLET PO SCH (20:25)
[2016-08-31] VITALS (7 sets, daily range): BP systolic 120–136; BP diastolic 63–74; PULSE 80–86; RESP 18–20; TEMP 98.4–99.6; O2SAT 92–94
--- NOTE | 2016-08-31 02:33 | NUR ---
Chart Check 24 hour chart check completed
--- NOTE | 2016-08-31 04:25 | NUR ---
Summary Linnette has slept fairly well. She refuses to wear her Bipap reporting that the mask does not fit very well.She wears o2 at 3/nc.Sao2 remain around 91-92%.She is continent of bowel and bladder. She is able to manage her clothes and her hygiene.She wears her own underwear and for tonight she wants to wear pull ups.Her pain is managed with ceferino Tylenol and prn Oxy IR 5mg.She ambulates and transfers with a fww gb and sba. Her gait is steady.The dressing to her right knee is C/D/I.1 + edema to her right leg and bruising to her left leg from a self reported fall.She wears a polar ice pack to her right knee off and on thru the night.Bilateral lower legs with SCD's.When in bed sr up x two and bedalarms intact.
[2016-08-31] MEDS: OXYCODONE I.R. 5 MG TABLET PO PRN ×3 (05:05→21:08)
[2016-08-31] MEDS: LEVOTHYROXINE 150 MCG TABLET PO SCH (05:05)
[2016-08-31 05:17] LABS: HCT - HEMATOCRIT 23.6 % (36-46); HGB - HEMOGLOBIN 7.3 GM/DL (12-16); MEAN CORPUSCULAR HGB 30.4 UUG (26-34); MEAN CORPUSCULAR HGB CONC(MCHC 30.9 GM/DL (31-37); MEAN CORPUSCULAR VOLUME 98.3 UM3 (80-100); MEAN PLATELET VOLUME 10.1 UM3 (9.4-12.4); WBC - WHITE BLOOD COUNT 10.4 T/MM3 (4.5-11.0)
[2016-08-31 05:27] LABS: ANION GAP 7 MEQ/L (5-15); BUN/CREATININE RATIO 24 RATIO (6-26); CALCIUM 8.5 MG/DL (8.4-10.2); CHLORIDE 102 MEQ/L (98-107); CO2 - CARBON DIOXIDE 26 MEQ/L (22-30); CREATININE 0.7 MG/DL (0.7-1.2); GLOMERULAR FILTRATION RATE 82; GLUCOSE 106 MG/DL (65-110); POTASSIUM 5.1 MEQ/L (3.6-5); SODIUM 135 MEQ/L (134-144)
[2016-08-31 06:13] LABS: ANISOCYTOSIS 1+; LYMPHOCYTES # (MANUAL) 1.8 T/MM3 (1-4.8); MONOCYTES # (MANUAL) 0.7 T/MM3 (0-0.8); NEUTROPHILS #(MANUAL)-ABSOLUTE 7.9 T/MM3 (1.8-7.7); POIKILOCYTOSIS 1+; TOTAL CELLS COUNTED 100 %
[2016-08-31] MEDS: SENNA + DOCUSATE TAB PO SCH ×2 (08:56→21:06)
[2016-08-31] MEDS: ACETAMINOPHEN 325 MG TABLET PO SCH ×4 (08:56→23:03)
--- NOTE | 2016-08-31 08:56 | PNPDOC ---
CHELSIE WILLETT COLLECTIONS CURATOR 08/31/16 0839: Subjective Date DATE: 08/31/16 TIME: 08:31 Subjective Linnette is complaining of quite a bit right leg stiffness and tightness. She feels swollen everywhere, especially in her right thigh and knee. Her breathing is "not too good". She feels weak in general, and believes that's partly due to not sleeping well using the hospital's bipap. She is planning on trying her own bipap this afternoon for a nap to see if that helps. She still has no appetite, and has had some nausea on and off. She had a large BM yesterday. Objective Vital Signs Vital signs Vital Signs Date Time Temp Pulse Resp B/P Pulse Ox O2 Delivery O2 Flow Rate FiO2 08/31/16 02:40 86 20 08/31/16 02:09 98.7 120/64 92 Nasal Cannula 2.00 Height (Feet): 5 Height (Inches): 7.00 Weight (Kilograms): 92.000 General General Appearance: Alert, Orientated x 3, Well Nourished, Well Developed, No Acute Distress Eyes (Brief) Eyes: FOUND: PERRL, NOT FOUND: scleral icterus ENMT (Brief) ENMT: FOUND: mucosa moist, NOT FOUND: pharnyx erythema Respiratory (Brief) Comments decreased throughout; elevated left hemidiaphragm results in blunting of that area Cardiovascular (Brief) Cardiac: FOUND: regular rate, regular rhythm Abdomen (Brief) Abdominal: FOUND: BS normo active x4, soft, NOT FOUND: tender Extremities (Brief) Extremity : Side: Right Extremity: leg Extremity Finding: FOUND: discoloration (ecchymosis), edema Musculoskeletal (Brief) Musculoskeletal: FOUND: loss of motion (postop) Integumentary (Brief) Integumentary: FOUND: dry, warm Comments dressing to right knee c/d/i Psychiatric (Brief) Psychiatric: FOUND: alert, attentive, normal affect, oriented Laboratory Laboratory Laboratory Tests 08/30/16 04:47 08/31/16 04:33 Laboratory Tests 08/30/16 04:47 08/31/16 04:33 Assessment & Plan Problems: (1) Anemia following surgery Status: Acute (2) Hypoxia Status: Acute (3) Hyperkalemia Status: Acute (4) Acute kidney injury Status: Resolved (5) Epistaxis Onset Date: 08/30/2016 Status: Acute (6) S/P total knee arthroplasty Status: Acute Qualifiers: Laterality: right Qualified Codes: Z96.651 - Presence of right artificial knee joint (7) Leukocytosis Status: Resolved Assessment & Plan: Continues to trend down (8) Hypertension Status: Chronic (9) Paroxysmal atrial fibrillation Status: Chronic (10) Paralyzed hemidiaphragm Status: Chronic (11) Pulmonary hypertension Status: Chronic (12) Hyperlipemia Status: Chronic (13) Diabetes Status: Chronic (14) Sleep apnea Status: Chronic (15) Obesity (BMI 30-39.9) Status: Chronic (16) Constipation Plan/Intensity of Service Postop anemia - hgb down to 7.3 today; pt describes sx of generalized weakness, tiredness, and some dyspnea - but these sx may also be explained by fluid retention, and anemia could be dilutional in nature. Weight has trended up significantly - on 08/26/16 her weight was 83 kg; on 08/29 it was 90.7 and today 92 kg. She is on Lasix 20 mg daily - will give Bumex 1 mg x1 at noon today. This should also help to waste potassium, which was minimally elevated at 5.1. Leukocytosis resolved. Repeat hemogram in am and chemistries d/t diuresis. DVT Prophylaxis: Xarelto Code Status Full Code Hospital Course Summary Disclaimer The hospital course summary below is not to be considered part of the above Progress Note. Hospital Course Summary 08/30/16 Continue with Inpatient rehabilitation treatment as per Dr Smith In light of continued hypoxia will obtain Chest X-ray today. Will work on weaning off oxygen as able. Encourage use of routine incentive spirometry. Will follow hemoglobin closely as patient does have postop anemia. Hgb today is 7.8. Lillie with current pain regimen including oxycodone and Tylenol. Encourage patient to elevate her right leg and knee and utilize Polar Pack to help with inflammation and swelling. Senna plus scheduled twice a day for ongoing bowel motivation. Will hold oral potassium given mild Hyperkalemia. Will recheck BMP tomorrow morning Continue on chronic Xarelto for anticoagulation and chronic proximal atrial fibrillation. Encourage continued work with PT/OT for ongoing post-op strengthening and function improvement 08/31/16 Postop anemia - hgb down to 7.3 today; pt describes sx of generalized weakness, tiredness, and some dyspnea - but these sx may also be explained by fluid retention, and anemia could be dilutional in nature. Weight has trended up significantly - on 08/26/16 her weight was 83 kg; on 08/29 it was 90.7 and today 92 kg. She is on Lasix 20 mg daily - will give Bumex 1 mg x1 at noon today. This should also help to waste potassium, which was minimally elevated at 5.1. Leukocytosis resolved. BARRY GUTIERREZ MD 08/31/161905: Assessment & Plan Assessment I have independently evaluated and examined this patient. I reviewed the chart, the patient's history, and the COLLECTIONS CURATOR's documented findings as above. We discussed and formulated the assessment and plan as above with additions as below: Small bowel movement earlier today, increased cramping in her right knee and calf and increased bruising in both feet since fall that led to hospitalization. 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 Diuresing well following Bumex. Respirations nonlabored but continues to require supplemental oxygen. Bilateral ecchymoses of the distal legs/feet. +1 edema RLE, trace edema LLE. Agree with diuresis as ordered, increase daily Lasix to 40 mg daily. Monitor potassium and magnesium in a.m. due to described cramping. May benefit from Neurontin for restless legs. Patient advised symptoms may worsen temporarily until iron replaced. No recurrent hypotension. CHELSIE WILLETT APRN Aug 31, 2016 08:39 BARRY GUTIERREZ MD Aug 31, 2016 19:06
[2016-08-31] MEDS: TIMOLOL 0.5% EYE DROPS 5ml LEFT EYE SCH (08:57)
[2016-08-31] MEDS: FLECAINIDE 50 MG TABLET PO SCH ×2 (08:57→21:06)
[2016-08-31] MEDS: FERROUS GLUCONATE 324 MG TABLET PO SCH (08:57)
[2016-08-31] MEDS: ACYCLOVIR 200 MG CAPSULE PO SCH (08:57)
[2016-08-31] MEDS: CALCIUM 500 MG TABLET PO SCH ×2 (08:57→21:06)
[2016-08-31] MEDS: FUROSEMIDE 20 MG TABLET PO SCH (08:58)
[2016-08-31] MEDS: POLYETHYL.GLYCOL 3350 PACKET 17gm PO SCH (08:58)
[2016-08-31] MEDS: SALINE NASAL SPRAY 45ml EA NOSTRIL PRN (10:15)
--- NOTE | 2016-08-31 10:35 | DI ---
INDICATION: ITS.REASON: hypoxia PROCEDURE: CHEST 2-VIEWS UPRIGHT (PA \T\ LAT) Encounter: Initial COMPARISON: August 27, 2016 FINDINGS: Lungs are stable with elevated left hemidiaphragm. No new infiltrate. No pleural effusion or pneumothorax. Heart size and mediastinal contours are stable. Impression: Stable chest without focal pneumonia or overt congestive failure. .
[2016-08-31] MEDS ORDERED: BUMETANIDE 1 MG TABLET PO ONE (12:00)
[2016-08-31] MEDS: RIVAROXABAN 20 MG TABLET PO SCH (17:34)
--- NOTE | 2016-08-31 17:47 | NUR ---
SHIFT SUMMARY PT HAS BEEN OUT TO DINING ROOM FOR ALL MEALS TODAY. PT AMBULATES WITH FWW AND GAIT BELT. PT HAS USED POLAR PACK MOST OF DAY. PT WAS INCONTINENT OF URINE WAS ABLE TO MANAGE CLOTHING TO CHANGE UNDERWEAR ON OWN, THE BRIEF WAS BROUGHT TO PT, BUT SHE DID EVERYTHING ELSE. PT HAS BEEN ON 2-3L OF O2 CONTINUOUS. PT TRIED TO USE BIPAP THIS AFTERNOON AND IT DID NOT WORK. O2 SATS DROPPED DOWN TO THE 70'S WHEN PT WAS WEARING THE BIPAP. O2 WAS PLACED BACK ON AT 4 AND PT CAME BACK UP TO 94%, O2 WAS TURNED DOWN TO 3L AND PT REMAINED AT 92%. AT 1600 VITALS PT WAS AT 2.5L AND 94%. PT HAS COMPLAINED OF PAIN IN HER KNEE AT A 2-8/10 ELEVATION AND PAIN MEDS HAVE HELPED.
[2016-08-31] MEDS: CHOLECALCIFEROL 1,000 UNIT TABLET PO SCH (21:07)
[2016-08-31] MEDS: ATORVASTATIN 40 MG TABLET PO SCH (21:07)
--- NOTE | 2016-08-31 22:44 | NUR ---
STATUS. PT HAS BEEN PLEASANT AND COOPERATIVE. 1 SBA WITH FWW AND GAITBELT. RT KNEE WITH EDEMA. POLAR PACK TO RT KNEE. OXY 1 TAB GIVEN AT HS FOR 3/10 PAIN LEVEL. O2 2L/NC.
--- NOTE | 2016-08-31 23:13 | NUR ---
Chart Check 24 hour chart check completed
[2016-09-01] MEDS: OXYCODONE I.R. 5 MG TABLET PO PRN ×4 (03:17→20:08)
[2016-09-01 05:07] LABS: HCT - HEMATOCRIT 21.5 % (36-46); HGB - HEMOGLOBIN 6.9 GM/DL (12-16); MEAN CORPUSCULAR HGB 30.8 UUG (26-34); MEAN CORPUSCULAR HGB CONC(MCHC 32.1 GM/DL (31-37); MEAN PLATELET VOLUME 9.8 UM3 (9.4-12.4); RED BLOOD COUNT 2.24 M/MM3 (4.00-5.20); WBC - WHITE BLOOD COUNT 8.7 T/MM3 (4.5-11.0)
[2016-09-01 05:31] LABS: ANION GAP 8 MEQ/L (5-15); BUN/CREATININE RATIO 21 RATIO (6-26); CALCIUM 8.2 MG/DL (8.4-10.2); CHLORIDE 102 MEQ/L (98-107); CO2 - CARBON DIOXIDE 28 MEQ/L (22-30); CREATININE 0.8 MG/DL (0.7-1.2); GLOMERULAR FILTRATION RATE 70; GLUCOSE 105 MG/DL (65-110); MAGNESIUM 2.1 MG/DL (1.6-2.3); POTASSIUM 4.4 MEQ/L (3.6-5); SODIUM 138 MEQ/L (134-144)
[2016-09-01] MEDS: LEVOTHYROXINE 175 MCG TABLET PO SCH (05:58)
--- NOTE | 2016-09-01 06:26 | NUR ---
SUMMARY. PT HAS BEEN PLEASANT AND COOPERATIVE WITH STAFF. CALLS FOR BR ASSIST. USING FWW AND GAITBELT WITH MIN TO SBA. O2 2L/NC. OXY I.R.1 TAB GIVEN AT HS FOR 3/10 PAIN LEVEL, AND 0317 FOR 5/10 PAIN LEVEL. INTAKE = 400CC, OUTPUT= 675CC +. DAILY WT 90.8KG.
[2016-09-01 07:47] VITALS: BP 128/66; PULSE 77; RESP 16; TEMP 98.8; O2SAT 97
[2016-09-01] MEDS ORDERED: NORMAL SALINE 500 ML IV SCH (07:49)
[2016-09-01 08:00] VITALS: PULSE 77; RESP 18
[2016-09-01] MEDS: POLYETHYL.GLYCOL 3350 PACKET 17gm PO SCH (08:24)
[2016-09-01] MEDS: ACETAMINOPHEN 325 MG TABLET PO SCH ×4 (08:25→20:45)
[2016-09-01] MEDS: FLECAINIDE 50 MG TABLET PO SCH ×2 (08:25→20:38)
[2016-09-01] MEDS: ACYCLOVIR 200 MG CAPSULE PO SCH (08:25)
[2016-09-01] MEDS: SENNA + DOCUSATE TAB PO SCH ×2 (08:25→20:39)
[2016-09-01] MEDS: CALCIUM 500 MG TABLET PO SCH ×2 (08:25→20:40)
[2016-09-01] MEDS: FERROUS GLUCONATE 324 MG TABLET PO SCH (08:26)
[2016-09-01] MEDS: TIMOLOL 0.5% EYE DROPS 5ml LEFT EYE SCH (08:28)
[2016-09-01] MEDS ORDERED: FUROSEMIDE 20 MG/2 ML INJECTION IV ONE (08:30)
[2016-09-01] MEDS ORDERED: DiphenhydrAMINE 25 MG CAPSULE PO ONE (08:30)
--- NOTE | 2016-09-01 12:12 | PNPDOC ---
Subjective Date DATE: 09/01/16 TIME: 12:04 Subjective Linnette is seen this morning in follow up. She continues to complain of significant weakness with intermittent shortness of breath. She continues to use 2 liters of oxygen by nasal canula. Denies chest pain or GI complains today. She is pale in color. BP 128/66. Objective Vital Signs Vital signs Vital Signs Date Time Temp Pulse Resp B/P Pulse Ox O2 Delivery O2 Flow Rate FiO2 09/01/16 07:47 98.8 77 16 128/66 97 Nasal Cannula 2.00 Height (Feet): 5 Height (Inches): 7.00 Weight (Kilograms): 90.800 General General Appearance: Alert, Orientated x 3, Cooperative, No Acute Distress Eyes (Brief) Eyes: FOUND: EOMI ENMT (Brief) ENMT: FOUND: mucosa moist, normal dentition, NOT FOUND: pharnyx erythema Neck (Brief) Neck: FOUND: midline, NOT FOUND: adenopathy, carotid bruits, tracheal deviation Respiratory (Brief) Respiratory: FOUND: equal bilaterally (crackles), NOT FOUND: wheezes Cardiovascular (Brief) Cardiac: FOUND: regular rate, regular rhythm, NOT FOUND: murmur, pedal edema Capillary Refill: <2 sec Abdomen (Brief) Abdominal: FOUND: BS normo active x4, soft, NOT FOUND: distended, tender Lymphatic (Brief) Lymphatic: NOT FOUND: adenopathy Musculoskeletal (Brief) Musculoskeletal: NOT FOUND: tenderness Integumentary (Brief) Integumentary: FOUND: dry, pink, warm Neurologic (Brief) Neurological: FOUND: cranial 2-12 intact Psychiatric (Brief) Psychiatric: FOUND: alert, attentive, normal affect, oriented Laboratory Laboratory Laboratory Tests 08/31/16 04:33 09/01/16 04:39 Laboratory Tests 08/31/16 04:33 09/01/16 04:39 Assessment & Plan Problems: (1) Anemia following surgery Status: Acute (2) Hypoxia Status: Acute (3) Hyperkalemia Status: Acute (4) Acute kidney injury Status: Resolved (5) Epistaxis Onset Date: 08/30/2016 Status: Acute (6) S/P total knee arthroplasty Status: Acute Qualifiers: Laterality: right Qualified Codes: Z96.651 - Presence of right artificial knee joint (7) Leukocytosis Status: Resolved Assessment & Plan: Continues to trend down (8) Hypertension Status: Chronic (9) Paroxysmal atrial fibrillation Status: Chronic (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 Follow serial Hgb closely. Likely secondary to Post-op anemia Will hold therapy this morning. Continue with oxygen therapy to maintain oxygen. Will hold PO Lasix this morning and give one time Lasix 20mg IV following transfusion. Senna Plus for bowel motivation. Code Status Full Code Hospital Course Summary Disclaimer The hospital course summary below is not to be considered part of the above Progress Note. Hospital Course Summary 08/30/16 Continue with Inpatient rehabilitation treatment as per Dr Smith In light of continued hypoxia will obtain Chest X-ray today. Will work on weaning off oxygen as able. Encourage use of routine incentive spirometry. Will follow hemoglobin closely as patient does have postop anemia. Hgb today is 7.8. Lillie with current pain regimen including oxycodone and Tylenol. Encourage patient to elevate her right leg and knee and utilize Polar Pack to help with inflammation and swelling. Senna plus scheduled twice a day for ongoing bowel motivation. Will hold oral potassium given mild Hyperkalemia. Will recheck BMP tomorrow morning Continue on chronic Xarelto for anticoagulation and chronic proximal atrial fibrillation. Encourage continued work with PT/OT for ongoing post-op strengthening and function improvement 08/31/16 Postop anemia - hgb down to 7.3 today; pt describes sx of generalized weakness, tiredness, and some dyspnea - but these sx may also be explained by fluid retention, and anemia could be dilutional in nature. Weight has trended up significantly - on 08/26/16 her weight was 83 kg; on 08/29 it was 90.7 and today 92 kg. She is on Lasix 20 mg daily - will give Bumex 1 mg x1 at noon today. This should also help to waste potassium, which was minimally elevated at 5.1. Leukocytosis resolved. LORAINE BALBUENA APRN Sep 01, 2016 12:09
--- NOTE | 2016-09-01 13:23 | PDIRUTEAM ---
Multidisciplinary Team Meeting Nursing Hx Incontinence: Yes Bladder Goal: 7+ Complete [place] Portillo Y/N: No Bladder Continent or Incontine: Continent Incontinent Product Used: Pull-up Number of Times Incontinent of: 0 Cleaning Ability-Bladder: 5 Supervision/Setup Bladder Incontinence Managemen: 5 Supervision/Setup Bowel Goal: 7+ Complete [place] Colostomy Y/N: No Bowel Incontinent/Continent: Continent Cleaning Ability-Bowel: 5 Supervision/Setup Toileting Ability: 5 Supervision/Setup Vital Signs Vital Signs Date Time Temp Pulse Resp B/P Pulse Ox O2 Delivery O2 Flow Rate FiO2 09/01/16 07:47 98.8 77 16 128/66 97 Nasal Cannula 2.00 Current Medications Current Medications Medications (Trade) Dose Ordered Sig/Cleo Route PRN Reason Start Time Stop Time Status Last Admin Dose Admin Acetaminophen (Tylenol Regular Strength) 650 mg QID PO 08/29/16 21:00 09/01/16 08:25 Acyclovir (Zovirax) 200 mg DAILY PO 08/30/16 09:00 09/01/16 08:25 Calcium Carbonate (Calcium) 500 mg BID PO 08/29/16 21:00 09/01/16 08:25 Citalopram Hydrobromide (Celexa) 40 mg HS PO 08/29/16 22:00 08/31/16 21:06 Flecainide Acetate (Tambocor) 50 mg BID PO 08/29/16 21:00 09/01/16 08:25 Furosemide (Lasix) 20 mg DAILY PO 08/30/16 09:00 08/31/16 19:07 DC 08/31/16 08:58 Levothyroxine Sodium (Synthroid) 150 mcg SuTuWeThSa@0630 PO 08/30/16 06:30 08/31/16 05:05 Levothyroxine Sodium (Synthroid) 175 mcg MoFr@0630 PO 09/01/16 06:30 09/01/16 05:58 Oxycodone HCl (Roxicodone) 1-3 TABS Q3H PRN PO BREAKTHROUGH PAIN 08/29/16 17:15 09/01/16 10:12 Rivaroxaban (Xarelto) 20 mg WS PO 08/29/16 17:30 08/31/16 17:34 Timolol Hemihydrate (Timoptic 0.5% Eye Drops) 1 drop DAILY LEFT EYE 08/30/16 09:00 09/01/16 08:28 Atorvastatin Calcium (LIPITOR 40 mg) 80 mg HS PO 08/29/16 22:00 08/31/16 21:07 Cholecalciferol (Vit. D3) 2,000 unit HS PO 08/29/16 22:00 08/31/16 21:07 Bisacodyl (Dulcolax) 10 mg DAILY PRN RECTALLY CONSTIPATION 08/29/16 18:45 08/29/16 19:27 Senna/Docusate Sodium (Senna Plus) 2 tab BID PO 08/29/16 21:00 09/01/16 08:25 Sodium Chloride (DEEP SEA Nasal [place]) 1 spray PRN PRN EA NOSTRIL NASAL CONGESTION 08/30/16 14:15 08/31/16 10:15 Ferrous Gluconate (Fergon) 324 mg WB PO 08/31/16 08:00 09/01/16 08:26 Benzocaine 1 applic 1 applic Q4H PRN TOP HEMORRHOIDS 08/30/16 21:00 08/30/16 22:17 Sodium Chloride (NS) 500 ml @ 0 mls/hr Q0M IV 09/01/16 07:49 09/01/16 10:17 Comments knee pain continues. Physical Therapy Bed Transfer Ability: 5 Supervision/Setup Bed Transfer Assistance Needed: 1 Person Bed FIM Score Reason: Safety and steadiness Chair Transfer Ability: 4 Minimal Assistance Chair Transfer Assistance Need: 1 Person Chair FIM Score Reason: Safety and steadiness Overall Wheelchair Transfer Ab: 4 Minimal Assistance Wheelchair Transfer Assistance: 1 Person Overall Toilet / Commode Trans: 5 Supervision/Setup Ambulation Ability: 1 Total Assistance Ambulation Assistance Needed: 1 Person Walk FIM Score Reason: Due to distance Ambulation Distance: 13 Comments Low hgb limited eval. Pt is workign today. Occupational Therapy Grooming Ability: 5 Supervision/Setup Bathing Ability: 3 Moderate Assistance Upper Body Dressing Ability: 5 Supervision/Setup Lower Body Dressing Ability: 3 Moderate Assistance Toileting Assistance Needed: 1 Person Comments Rapid fatique. No real issues with safety at this time. Care Plan Interventions/Goals Day 3 of unknown stay. Barriers to d/c: Strength, tolerance, fatigue, anemia. Look to d/c towards end of week as short stay if she shows improvement. Transfusion ordered. ANDREW BANSAL MD Sep 01, 2016 13:22
[2016-09-01 16:00] VITALS: BP 127/66; PULSE 75; RESP 16; TEMP 96.7; O2SAT 95
[2016-09-01 16:43] LABS: HGB - HEMOGLOBIN 8.6 GM/DL (12-16)
[2016-09-01] MEDS: RIVAROXABAN 20 MG TABLET PO SCH (17:01)
--- NOTE | 2016-09-01 17:12 | PDIRUOPC ---
Overall Plan of Care Date DATE: 09/01/16 TIME: 17:08 Relevant Changes Relevant Changes: No I have reviewed the patient's information and concur with the finding and results of the pre-admission screen. Certification I certify the patient for rehabilitation. Patient Impairments Prior Medical Conditions: (1) S/P total knee arthroplasty Status: Acute Additional Information: PT and OT to work with pt to develop plan of care. (2) Diabetes Status: Chronic Additional Information: managed by medical. (3) Anemia following surgery Status: Acute Additional Information: managed by medical. Current Medical Conditions: (1) S/P total knee arthroplasty Status: Acute Additional Information: PT and OT to work with pt to develop plan of care. (2) Diabetes Status: Chronic Additional Information: managed by medical. (3) Anemia following surgery Status: Acute Additional Information: managed by medical. Medical Prognosis Fair IRF Tx That Should Address Dx: (1) Myopathy (2) S/P total knee arthroplasty Dx Requiring Medical FU: (1) Anemia following surgery (2) Diabetes (3) Pulmonary hypertension Vital Signs Vital Signs Date Time Temp Pulse Resp B/P Pulse Ox O2 Delivery O2 Flow Rate FiO2 09/01/16 16:00 96.7 75 16 127/66 95 Nasal Cannula 2.00 Laboratory Laboratory Tests Test 08/31/16 04:33 09/01/16 04:39 09/01/16 16:17 White Blood Count 10.4T/MM3 8.7T/MM3 Red Blood Count 2.40M/MM3 2.24M/MM3 Hemoglobin 7.3GM/DL 6.9GM/DL 8.6GM/DL Hematocrit 23.6% 21.5% Mean Corpuscular Volume 98.3UM3 96.0UM3 Mean Corpuscular Hemoglobin 30.4UUG 30.8UUG Mean Corpuscular Hemoglobin Concent 30.9GM/DL 32.1GM/DL RDW Standard Deviation 47.3FL 46.1FL Platelet Count 217T/MM3 238T/MM3 Mean Platelet Volume 10.1UM3 9.8UM3 Immature Granulocyte % (Auto) % Neutrophils (%) (Auto) % Lymphocytes (%) (Auto) % Monocytes (%) (Auto) % Eosinophils (%) (Auto) % Basophils (%) (Auto) % Absolute Immature Granulocyte (auto T/MM3 Absolute Neutrophils (auto) T/MM3 Absolute Lymphocytes (auto) T/MM3 Absolute Monocytes (auto) T/MM3 Absolute Eosinophils (auto) T/MM3 Absolute Basophils (auto) T/MM3 Neutrophils % (Manual) 76.0% Lymphocytes % (Manual) 17.0% Monocytes % (Manual) 7.0% Absolute Neutrophils (Manual) 7.9T/MM3 Lymphocytes # (Manual) 1.8T/MM3 Monocytes # (Manual) 0.7T/MM3 Poikilocytosis 1+ Anisocytosis 1+ Red Cell Morphology Comment Abnormal Turbidity < 20 < 20 Sodium Level 135MEQ/L 138MEQ/L Potassium Level 5.1MEQ/L 4.4MEQ/L Chloride Level 102MEQ/L 102MEQ/L Carbon Dioxide Level 26MEQ/L 28MEQ/L Anion Gap 7MEQ/L 8MEQ/L Blood Urea Nitrogen 17.0MG/DL 17.0MG/DL Creatinine 0.7MG/DL 0.8MG/DL Glomerular Filtration Rate Calc 82 70 BUN/Creatinine Ratio 24RATIO 21RATIO Glucose Level 106MG/DL 105MG/DL Calculated Osmolality 262MOSM/KG 268MOSM/KG Calcium Level 8.5MG/DL 8.2MG/DL Icterus Index < 2 < 2 Chemistry Specimen Hemolysis 26 < 15 Magnesium Level 2.1MG/DL Anticipated Interventions The patient requires inpatient IRF care for PT, OT, and/or ST for residuals remaining from [] resulting in muscular weakness and strength deficits. ROM Deficit: Right Lower Extremity Strength Deficits: Right Lower Extremity FIM Scores Ambulation Distance: 285 Ambulation Ability: 5 Supervision/Setup Ambulation Assistance Needed: 1 Person Walk FIM Score Reason: pt requires dependence for O2 tank management during mobility Stairs: 5 Supervision/Setup Stair Assistance Needed: 1 Person Number of Stairs: 12 Eating Ability-FIM: 6 Modified [place] Grooming Ability: 5 Supervision/Setup Bathing Ability: 3 Moderate Assistance Upper Body Dressing Ability: 5 Supervision/Setup Lower Body Dressing Ability: 3 Moderate Assistance Toileting Ability: 5 Supervision/Setup Toileting Assistance Needed: 1 Person Bed Transfer Ability: 6 Modified [place] Bed Transfer Assistance Needed: 1 Person Bed FIM Score Reason: Safety and steadiness Chair Transfer Ability: 5 Supervision/Setup Chair Transfer Assistance Need: 1 Person Chair FIM Score Reason: Safety and steadiness Overall Wheelchair Transfer Ab: 4 Minimal Assistance Overall Toilet / Commode Trans: 5 Supervision/Setup Toilet / Commode Transfer Assi: 1 Person Comprehension Ability: 7+ Complete [place] Social Interaction: 7+ Complete [place] Problem Solvin Modified [place] Expression Ability: 7+ Complete [place] Memory: 7+ Complete [place] Current Functional Status Failed Alternative Therapy: Arrived from acute care Patient Requires * Patient has been determined to have significant functional limitations requiring at least two therapy disciplines. * Rehabilitation medical practitioner will provide admission approval, assessment and oversight and program coordination at least daily. * Intensive rehabilitative nursing services on site and available 24 hours a day. * The treatment plan will be developed within 24 hours of admission. * Interdisciplinary and goal oriented treatment by professional nursing, psychiatric social worker, and rehabilitation therapist. * Interdisciplinary team meeting weekly inclusive of ongoing comprehensive discharge planning. First team meeting by . Weekly meetings to follow. * Rehab Physician is the team meeting leader. * Pharmacy and diagnostic services will be available. * Ongoing comprehensive rehab program with at least 2 disciplines and greater than or equal to 3 hours a day, 5 days a week. Limitations require: limited mobility, ADL impairment Physical Therapy Minutes: 90 Occupational Therapy Minutes: 90 Therapy The patient is to receive therapy at least 5 days a week. PT Treatment Plan: Therapeutic Exercise, Gait Training, Functional Activities , Patient/Family Education, Balance/Proprioception Treatment Plan Frequency: five times per week Treatment Plan Duration: two weeks Plan of Care Comment: 6x/wk for 1st wk; 5x/wk for 2nd and 3rd wks. OT Treatment Plan: ADL's (basic care), Ther. Exercise for ADL's, UE Functional Training, Balance Training, Pt./Family Education, IADL's OT Treatment Plan Frequency: five times per week OT Treatment Plan Duration: three weeks Anticapted LOS/Outcomes Anticipated Functional Outcome improvement to presurgical strength and stability Anticipated DC Destination: Home Health Service Home Safety Plan The patient will be provided with the development of a Home Safety Plan for return to a home or home-like environment and to ensure safety post discharge. Complicating Conditions Complications since IRF admit: (1) S/P total knee arthroplasty Status: Acute Comments: PT and OT to work with pt to develop plan of care. (2) Diabetes Status: Chronic Comments: managed by medical. (3) Anemia following surgery Status: Acute Comments: managed by medical. Other Contributing Factors: Plan to Avoid Complications Barriers to Attaining Goals: weakness, balance, endurance, pain control, medical limitation Plan to Avoid Complications The patient cannot receive this care in a lesser intensive setting such as Retirement or Outpatient Therapy due to the patient requiring the following Diabetes, post op anemia, The patient requires oversight by a rehabilitation physician to manage their rehabilitation treatment plan and the multidisciplinary approach to care that can only be provided in an IRF and requires a multidisciplinary approach to care , provided by professional PTs, OTs, STs, dieticians, RTs, rehabilitation nurses and is not available in lesser levels of care. The frequency and duration for therapy, as recommended by the professional Rehabilitation therapists, meet the patient's initial rehabilitation treatment plan needs and will be further evaluated on a weekly basis for progress and/or changes needed. Problem Qualifiers (1) S/P total knee arthroplasty: Laterality: right Qualified Codes: Z96.651 - Presence of right artificial knee joint ANDREW BANSAL MD Sep 01, 2016 17:12
--- NOTE | 2016-09-01 17:14 | PNPDOC ---
IRU Subjective Date DATE: 09/01/16 TIME: 17:12 Subjective Worked with PT and OT, in session with PT during our visit. Pain is controlled reasonably, increasing ROM . IRU Objective Vital Signs Vital signs Vital Signs Date Time Temp Pulse Resp B/P Pulse Ox O2 Delivery O2 Flow Rate FiO2 09/01/16 16:00 96.7 75 16 127/66 95 Nasal Cannula 2.00 Telemetry Rhythm: Sinus Rhythm Height (Feet): 5 Height (Inches): 7.00 Weight (Kilograms): 90.800 General General Appearance: Alert, Orientated x 3 Respiratory (Brief) Respiratory: FOUND: clear all schulz, equal bilaterally, NOT FOUND: rales Cardiovascular (Brief) Cardiac: FOUND: regular rate, regular rhythm Capillary Refill: <2 sec Musculoskeletal (Brief) Comments bruising and minor swelling of right leg. Integumentary (Brief) Comments right knee incision bandaged and dry. Laboratory Laboratory Laboratory Tests Test 08/31/16 04:33 09/01/16 04:39 09/01/16 16:17 White Blood Count 10.4T/MM3 8.7T/MM3 Red Blood Count 2.40M/MM3 2.24M/MM3 Hemoglobin 7.3GM/DL 6.9GM/DL 8.6GM/DL Hematocrit 23.6% 21.5% Mean Corpuscular Volume 98.3UM3 96.0UM3 Mean Corpuscular Hemoglobin 30.4UUG 30.8UUG Mean Corpuscular Hemoglobin Concent 30.9GM/DL 32.1GM/DL RDW Standard Deviation 47.3FL 46.1FL Platelet Count 217T/MM3 238T/MM3 Mean Platelet Volume 10.1UM3 9.8UM3 Immature Granulocyte % (Auto) % Neutrophils (%) (Auto) % Lymphocytes (%) (Auto) % Monocytes (%) (Auto) % Eosinophils (%) (Auto) % Basophils (%) (Auto) % Absolute Immature Granulocyte (auto T/MM3 Absolute Neutrophils (auto) T/MM3 Absolute Lymphocytes (auto) T/MM3 Absolute Monocytes (auto) T/MM3 Absolute Eosinophils (auto) T/MM3 Absolute Basophils (auto) T/MM3 Neutrophils % (Manual) 76.0% Lymphocytes % (Manual) 17.0% Monocytes % (Manual) 7.0% Absolute Neutrophils (Manual) 7.9T/MM3 Lymphocytes # (Manual) 1.8T/MM3 Monocytes # (Manual) 0.7T/MM3 Poikilocytosis 1+ Anisocytosis 1+ Red Cell Morphology Comment Abnormal Turbidity < 20 < 20 Sodium Level 135MEQ/L 138MEQ/L Potassium Level 5.1MEQ/L 4.4MEQ/L Chloride Level 102MEQ/L 102MEQ/L Carbon Dioxide Level 26MEQ/L 28MEQ/L Anion Gap 7MEQ/L 8MEQ/L Blood Urea Nitrogen 17.0MG/DL 17.0MG/DL Creatinine 0.7MG/DL 0.8MG/DL Glomerular Filtration Rate Calc 82 70 BUN/Creatinine Ratio 24RATIO 21RATIO Glucose Level 106MG/DL 105MG/DL Calculated Osmolality 262MOSM/KG 268MOSM/KG Calcium Level 8.5MG/DL 8.2MG/DL Icterus Index < 2 < 2 Chemistry Specimen Hemolysis 26 < 15 Magnesium Level 2.1MG/DL Assessment & Plan Problems: (1) S/P total knee arthroplasty Status: Acute Qualifiers: Laterality: right Qualified Codes: Z96.651 - Presence of right artificial knee joint Assessment & Plan: surgical and medical to manage (2) Diabetes Status: Chronic Assessment & Plan: medical to manage (3) Anemia following surgery Status: Acute Assessment & Plan: medical to manage. (4) Myopathy Assessment & Plan: COnt with PT and OT per plan of care. Code Status Full Code Interventions to Obtain Goals PT Treatment Plan: Therapeutic Exercise, Gait Training, Functional Activities , Patient/Family Education, Balance/Proprioception OT Treatment Plan: ADL's (basic care), Ther. Exercise for ADL's, UE Functional Training, Balance Training, Pt./Family Education, IADL's Hospital Course Summary Disclaimer The hospital course summary below is not to be considered part of the above Progress Note. Hospital Course Summary 08/30/16 Continue with Inpatient rehabilitation treatment as per Dr Bansal In light of continued hypoxia will obtain Chest X-ray today. Will work on weaning off oxygen as able. Encourage use of routine incentive spirometry. Will follow hemoglobin closely as patient does have postop anemia. Hgb today is 7.8. Lillie with current pain regimen including oxycodone and Tylenol. Encourage patient to elevate her right leg and knee and utilize Polar Pack to help with inflammation and swelling. Senna plus scheduled twice a day for ongoing bowel motivation. Will hold oral potassium given mild Hyperkalemia. Will recheck BMP tomorrow morning Continue on chronic Xarelto for anticoagulation and chronic proximal atrial fibrillation. Encourage continued work with PT/OT for ongoing post-op strengthening and function improvement 08/31/16 Postop anemia - hgb down to 7.3 today; pt describes sx of generalized weakness, tiredness, and some dyspnea - but these sx may also be explained by fluid retention, and anemia could be dilutional in nature. Weight has trended up significantly - on 08/26/16 her weight was 83 kg; on 08/29 it was 90.7 and today 92 kg. She is on Lasix 20 mg daily - will give Bumex 1 mg x1 at noon today. This should also help to waste potassium, which was minimally elevated at 5.1. Leukocytosis resolved. ANDREW BANSAL MD Sep 01, 2016 17:14
--- NOTE | 2016-09-01 19:09 | NUR ---
Shift Summary Pt is resting comfortably in bed. Ambulates well with assist of 1, FWW, and gait belt. Received blood today, tolerated well, no reaction, reports feeling better. Reported pain to the Rt knee received Roxicodone IR (1) at 1012 and (2) at 1528, which helps. Has been continent this shift, able to manage her clothing and cares. Able to get herself dressed this AM, needed minimal assist with the legs and her socks. When in bed the bed alarm is in use and call light is within reach.
[2016-09-01] MEDS: ATORVASTATIN 40 MG TABLET PO SCH (20:39)
[2016-09-01] MEDS: CHOLECALCIFEROL 1,000 UNIT TABLET PO SCH (20:39)
[2016-09-01 22:37] VITALS: BP 146/74; PULSE 85; RESP 18; TEMP 98.1; O2SAT 92
[2016-09-02] MEDS: OXYCODONE I.R. 5 MG TABLET PO PRN ×5 (00:09→21:49)
[2016-09-02] MEDS: LEVOTHYROXINE 150 MCG TABLET PO SCH (05:10)
--- NOTE | 2016-09-02 07:55 | NUR ---
Summary Pt has had complaint of pain at knee. Pt states that physical therapy was "hard work today". Roxicodone 5mg given a few times through the night for breakthrough pain. Pt did not want to take 10mg because she didn't want to feel loopy. This morning pt stated that she would try 10mg tonight. Tried to waen O2 last night from 2L to 1.5. Pt SpaO2 dropped to 87%. 2L reinitiated. Pt to dining area at this time
[2016-09-02 08:00] VITALS: BP 143/68; PULSE 71; RESP 23; TEMP 98.7; O2SAT 95
[2016-09-02 08:56] LABS: BASOPHILS % (AUTO) 0.4 % (0-2); EOSINOPHILS # (AUTO) 0.2 T/MM3 (0-0.5); HCT - HEMATOCRIT 27.6 % (36-46); HGB - HEMOGLOBIN 8.7 GM/DL (12-16); IMMATURE GRANULOCYTE # (AUTO) 0.05 T/MM3 (0.00-0.03); IMMATURE GRANULOCYTE % (AUTO) 0.5 % (0.0-0.5); LYMPHOCYTES # (AUTO) 2.4 T/MM3 (1-4.8); LYMPHOCYTES % (AUTO) 23.7 % (23-45); MEAN CORPUSCULAR HGB 30.4 UUG (26-34); MEAN CORPUSCULAR HGB CONC(MCHC 31.5 GM/DL (31-37); MEAN CORPUSCULAR VOLUME 96.5 UM3 (80-100); MEAN PLATELET VOLUME 9.3 UM3 (9.4-12.4); MONOCYTES # (AUTO) 1.5 T/MM3 (0-0.8); MONOCYTES % (AUTO) 14.5 % (0-9.0); NEUTROPHILS #(AUTO)-ABSOLUTE 5.9 T/MM3 (1.8-7.7); NEUTROPHILS % (AUTO) 58.9 % (33-66); RED BLOOD COUNT 2.86 M/MM3 (4.00-5.20)
[2016-09-02 09:04] LABS: ANION GAP 12 MEQ/L (5-15); BUN/CREATININE RATIO 18 RATIO (6-26); CALCIUM 8.7 MG/DL (8.4-10.2); CHLORIDE 100 MEQ/L (98-107); CO2 - CARBON DIOXIDE 27 MEQ/L (22-30); CREATININE 0.8 MG/DL (0.7-1.2); GLOMERULAR FILTRATION RATE 70; GLUCOSE 143 MG/DL (65-110); POTASSIUM 4.6 MEQ/L (3.6-5); SODIUM 139 MEQ/L (134-144)
[2016-09-02] MEDS: ACYCLOVIR 200 MG CAPSULE PO SCH (09:50)
[2016-09-02] MEDS: FLECAINIDE 50 MG TABLET PO SCH ×2 (09:50→21:47)
[2016-09-02] MEDS: SENNA + DOCUSATE TAB PO SCH ×2 (09:50→21:47)
[2016-09-02] MEDS: CALCIUM 500 MG TABLET PO SCH ×2 (09:50→21:47)
[2016-09-02] MEDS: FERROUS GLUCONATE 324 MG TABLET PO SCH (09:51)
[2016-09-02] MEDS: TIMOLOL 0.5% EYE DROPS 5ml LEFT EYE SCH (09:52)
[2016-09-02] MEDS: ACETAMINOPHEN 325 MG TABLET PO SCH ×4 (09:52→21:48)
[2016-09-02] MEDS: POLYETHYL.GLYCOL 3350 PACKET 17gm PO SCH (09:52)
[2016-09-02 11:18] VITALS: RESP 23
[2016-09-02 16:26] VITALS: BP 119/47; PULSE 69; RESP 18; TEMP 97.6; O2SAT 97
--- NOTE | 2016-09-02 16:41 | NUR ---
CM SPOKE WITH PT, INTRODUCED SELF, EXPLAINED ROLE, PROVIDED CONTACT INFO. PT STATED SHE LIVES IN [place] AND HER DC PLAN IS TO RETURN HOME. SHE REQUESTED HOME HEALTH, AND SAID SHE DOES NOT HAVE A HOME HEALTH PREFERENCE. THIS WORKER REVIEWED [facility] AND DISCLOSED THE FINANCIAL RELATIONSHIP, AND SHE WAS AGREEABLE TO THIS. SHE SAID SHE DOES NOT HAVE OXYGEN AT HOME. SHE SAID SHE DOES NOT NEED ANY MORE DME, AND SHE ALREADY HAS: 2 WHEELED WALKER, SHOWER CHAIR, TOILET RISER, HAND HELD SHOWER HEAD, BED SIDE COMMODE. SHE SAID SHE HAS FRIENDS IN [facility] [place]. SHE ALSO HAS A SON THAT VISITS HER EVERY WEEKEND AND ANOTHER SON WHO VISITS. REVIEWED [facility] PLAN OF CARE, AND SHE SIGNED. SHE HAD NO QUESTIONS/CONCERNS ABOUT THIS. SHE HAD NO QUESTIONS/NEEDS FOR THIS WORKER. Addendum: 09/02/16 at 1653 by JALYN OWUSU Amended: Links added.
[2016-09-02] MEDS: RIVAROXABAN 20 MG TABLET PO SCH (17:28)
--- NOTE | 2016-09-02 19:15 | NUR ---
SHIFT SUMMARY PT HAS BEEN PLEASANT AND COOPERATIVE. HAS BEEN OUT TO DINING ROOM FOR MEALS. AMBULATES WITH FWW AND GAIT BELT. USES POLAR PACK BETWEEN THERAPIES. PT REPORTED PAIN AT A BETTER LEVEL TODAY THEN YESTERDAY. RATED PAIN AT A 3-6/10. PT HAS WORKED WITH THERAPY. HAS RESTED WITH HER LEG ELEVATED BETWEEN THERAPIES WELL.
[2016-09-02 19:19] VITALS: BP 136/74; PULSE 73; RESP 16; TEMP 98.3; O2SAT 94
[2016-09-02] MEDS: ATORVASTATIN 40 MG TABLET PO SCH (21:48)
[2016-09-02] MEDS: CHOLECALCIFEROL 1,000 UNIT TABLET PO SCH (21:49)
--- NOTE | 2016-09-03 02:01 | NUR ---
Chart Check 24 hour chart check completed
[2016-09-03] MEDS: OXYCODONE I.R. 5 MG TABLET PO PRN ×4 (03:31→22:24)
[2016-09-03] MEDS: LEVOTHYROXINE 150 MCG TABLET PO SCH (03:31)
[2016-09-03 03:48] VITALS: PULSE 73; RESP 16
--- NOTE | 2016-09-03 06:18 | NUR ---
Summary Linnette is alert and oriented x three. She is pleasant and cooperative with all cares. The IV lock to her left inner wrist is intact and flushes well. Noted purple bruise to the medial side of the IV.Linnette has slept well this evening.She is able to make her need known. She wears oxygen at 2 liters per nasal cannula .VSS. She is continent of bowel and bladder. She is able to manage her clothes and her hygiene. She wears a pullup .Her pain has been managed with scheduled Tylenol and prn Oxy IR 10mg which was given twice. She ambulates and transfers with a fww gb and sba. Her gait is steady.The dressing to her right knee is C/D/I. 1 + edema to her right leg and bruising to her left leg from a self reported fall.She wears a polar ice pack to her right knee needed thru the night. She has refused her scds.When in bed siderails up x two and bedalarms intact.
[2016-09-03 08:27] LABS: BASOPHILS % (AUTO) 0.3 % (0-2); EOSINOPHILS # (AUTO) 0.2 T/MM3 (0-0.5); EOSINOPHILS % (AUTO) 2.1 % (0-4); HCT - HEMATOCRIT 28.1 % (36-46); HGB - HEMOGLOBIN 8.9 GM/DL (12-16); IMMATURE GRANULOCYTE # (AUTO) 0.04 T/MM3 (0.00-0.03); IMMATURE GRANULOCYTE % (AUTO) 0.4 % (0.0-0.5); LYMPHOCYTES # (AUTO) 2.6 T/MM3 (1-4.8); LYMPHOCYTES % (AUTO) 26.2 % (23-45); MEAN CORPUSCULAR HGB 30.6 UUG (26-34); MEAN CORPUSCULAR HGB CONC(MCHC 31.7 GM/DL (31-37); MEAN CORPUSCULAR VOLUME 96.6 UM3 (80-100); MEAN PLATELET VOLUME 9.2 UM3 (9.4-12.4); MONOCYTES # (AUTO) 1.3 T/MM3 (0-0.8); MONOCYTES % (AUTO) 13.6 % (0-9.0); NEUTROPHILS #(AUTO)-ABSOLUTE 5.6 T/MM3 (1.8-7.7); NEUTROPHILS % (AUTO) 57.4 % (33-66); RED BLOOD COUNT 2.91 M/MM3 (4.00-5.20); WBC - WHITE BLOOD COUNT 9.8 T/MM3 (4.5-11.0)
[2016-09-03 08:30] VITALS: BP 148/70; PULSE 78; RESP 16; TEMP 98.1; O2SAT 94
[2016-09-03] MEDS: POLYETHYL.GLYCOL 3350 PACKET 17gm PO SCH (09:08)
[2016-09-03] MEDS: TIMOLOL 0.5% EYE DROPS 5ml LEFT EYE SCH (09:09)
[2016-09-03] MEDS: SENNA + DOCUSATE TAB PO SCH ×2 (09:09→22:24)
[2016-09-03] MEDS: FERROUS GLUCONATE 324 MG TABLET PO SCH (09:10)
[2016-09-03] MEDS: FLECAINIDE 50 MG TABLET PO SCH ×2 (09:10→22:23)
[2016-09-03] MEDS: CALCIUM 500 MG TABLET PO SCH ×2 (09:10→22:22)
[2016-09-03] MEDS: ACYCLOVIR 200 MG CAPSULE PO SCH (09:13)
[2016-09-03] MEDS: ACETAMINOPHEN 325 MG TABLET PO SCH ×4 (09:13→22:23)
--- NOTE | 2016-09-03 12:22 | PNPDOC ---
LORAINE BALBUENA V ENGINE TESTING SUPERVISOR 09/03/16 1214: Subjective Date DATE: 09/03/16 TIME: 12:09 Subjective Linnette is seen today sitting in the dining [place]. She has just completed therapy and reports that she is doing well. Her pain is controlled, she is eating and drinking well. She is also having small bowel movements. She does wear BiPaP at bedtime at home since her hiatal hernia repair. She is currently on 3.5L NC maintaining O2 sats of 94%. She was on 2L until yesterday. She denies chest pain but does report increasing SOA with exertion. She also reports non-painful bruising to her right breast. Noted weight is up 3KG since yesterday. Objective Vital Signs Vital signs Vital Signs Date Time Temp Pulse Resp B/P Pulse Ox O2 Delivery O2 Flow Rate FiO2 09/03/16 08:30 98.1 78 16 148/70 94 Nasal Cannula 3.50 Height (Feet): 5 Height (Inches): 7.00 Weight (Kilograms): 86.600 General General Appearance: Alert, Orientated x 3, Well Nourished, Cooperative, No Acute Distress Respiratory (Brief) Respiratory: FOUND: clear all schulz, equal bilaterally Cardiovascular (Brief) Cardiac: FOUND: pedal edema, regular rate, regular rhythm Abdomen (Brief) Abdominal: FOUND: BS normo active x4, soft Musculoskeletal (Brief) Musculoskeletal: FOUND: other (weakness to right knee, s/p tka) Integumentary (Brief) Integumentary: FOUND: dry, other (dressing intact to R knee, no erythema or drainage. Eccymosis to right lower leg and left breast.), pink, warm Neurologic (Brief) Neurological: FOUND: cranial 2-12 intact Psychiatric (Brief) Psychiatric: FOUND: alert, normal affect, oriented Laboratory Laboratory Laboratory Tests 09/02/16 08:48 Laboratory Tests 09/01/16 16:17 09/02/16 08:48 09/03/16 08:18 Assessment & Plan Problems: (1) Hypoxia Status: Acute (2) Anemia following surgery Status: Acute (3) Bruise of breast Status: Acute (4) S/P total knee arthroplasty Status: Acute Qualifiers: Laterality: right Qualified Codes: Z96.651 - Presence of right artificial knee joint (5) Epistaxis Onset Date: 08/30/2016 Status: Resolved (6) Acute kidney injury Status: Resolved (7) Hyperkalemia Status: Resolved (8) Leukocytosis Status: Resolved Assessment & Plan: Continues to trend down (9) Hypertension Status: Chronic (10) Paroxysmal atrial fibrillation Status: Chronic (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 Will try and wean as able. Since her oxygen demands are increasing, we will obtain a CXR to rule out pulmonary concerns. Continue with daily weights. Her weight has increased 3 kilograms overnight, we will give her a dose of Lasix 20mg IV for diuresis today. We will resume oral Lasix 40mg tomorrow. We will continue to watch her right breast for pain and swelling. Continue with Roxicodone for pain control. She received 1 unit PRBC on 09/01. Her hemoglobin today is 9.8. We will continue to monitor her Hgb levels. Her vital signs are stable. BP 148/70, HR 78, R- 16, SPO2 94% on 3.5L per NC. Continue with therapy for strengthening and function improvement. CBC and BMP on 09/04 to monitor renal function, blood counts and electrolytes. Code Status Full Code Hospital Course Summary Disclaimer The hospital course summary below is not to be considered part of the above Progress Note. Hospital Course Summary 08/30/16 Continue with Inpatient rehabilitation treatment as per Dr Smith In light of continued hypoxia will obtain Chest X-ray today. Will work on weaning off oxygen as able. Encourage use of routine incentive spirometry. Will follow hemoglobin closely as patient does have postop anemia. Hgb today is 7.8. Lillie with current pain regimen including oxycodone and Tylenol. Encourage patient to elevate her right leg and knee and utilize Polar Pack to help with inflammation and swelling. Senna plus scheduled twice a day for ongoing bowel motivation. Will hold oral potassium given mild Hyperkalemia. Will recheck BMP tomorrow morning Continue on chronic Xarelto for anticoagulation and chronic proximal atrial fibrillation. Encourage continued work with PT/OT for ongoing post-op strengthening and function improvement 08/31/16 Postop anemia - hgb down to 7.3 today; pt describes sx of generalized weakness, tiredness, and some dyspnea - but these sx may also be explained by fluid retention, and anemia could be dilutional in nature. Weight has trended up significantly - on 08/26/16 her weight was 83 kg; on 08/29 it was 90.7 and today 92 kg. She is on Lasix 20 mg daily - will give Bumex 1 mg x1 at noon today. This should also help to waste potassium, which was minimally elevated at 5.1. Leukocytosis resolved. 09/03/16 Continue with oxygen therapy to maintain oxygen saturations. Will try and wean as able. Since her oxygen demands are increasing, we will obtain a CXR to rule out pulmonary concerns. Continue with daily weights. Her weight has increased 3 kilograms overnight, we will give her a dose of Lasix 20mg IV for diuresis today. We will resume oral Lasix 40mg tomorrow. We will continue to watch her right breast for pain and swelling. Continue with Roxicodone for pain control. She received 1 unit PRBC on 09/01. Her hemoglobin today is 9.8. We will continue to monitor her Hgb levels. Her vital signs are stable. BP 148/70, HR 78, R- 16, SPO2 94% on 3.5L per NC. Continue with therapy for strengthening and function improvement. CBC and BMP on 09/04 to monitor renal function, blood counts and electrolytes. MELISSA ACOSTA MD 09/03/162028: Assessment & Plan Plan/Intensity of Service Have independently interviewed and examined pt. Chart reviewed. Case discussed with my ENGINE TESTING SUPERVISOR. Above care plan developed with my supervision; agree with above. Improving. Feels blood transfusion really help. Strength and abilities increasing with therapy. Pain controlled. Appetite improved, eating better. No nausea or ab pain. Lungs: decreased, no crackles, wheezes or distress CV: regular MSE; awake alert appropriate Plan; Continue with IRU to help maximize functional status. Encourage breathing exercises and IS us. Wean O2 as able. Continue pain control. Monitor lab. Pt medically stable for IRU floor activities. LORAINE BALBUENA APRN Sep 03, 2016 12:14 MELISSA ACOSTA MD Sep 03, 2016 20:29
[2016-09-03] MEDS ORDERED: FUROSEMIDE 20 MG/2 ML INJECTION IV ONE (13:45)
--- NOTE | 2016-09-03 14:49 | DI ---
Indication: ITS.REASON: hypoxia Procedure: CHEST, PA LATERAL: Encounter: Initial Comparison: 08/30/2016 Technique: PA and lateral radiographs of the chest were obtained. Findings: Lungs and airways: Unchanged elevation of the left hemidiaphragm with associated decreased left lung lung volume and left basilar atelectasis. No other focal/confluent airspace consolidation. Normal pulmonary vasculature. Pleura: No pleural effusion or pneumothorax. Heart and mediastinum: The cardiomediastinal silhouette and great vessels appear unchanged. Osseous structures and soft tissues: No acute osseous abnormality is seen. Degenerative disc disease of the thoracic spine. Impression: No acute cardiopulmonary process. .
--- NOTE | 2016-09-03 15:42 | NUR ---
CM SPOKE WITH PT, RE: DC PLANNING AND THE POSSIBILITY OF A RELEASE DATE AT THE END OF THE WEEK. PT STATED SHE FEELS COMFORTABLE WITH THIS, BUT SHE HAD QUESTIONS ABOUT HER OXYGEN USE. THIS WORKER EXPLAINED THAT SHE WILL BE TESTED TO SEE IF SHE WILL NEED HOME OXYGEN. IF SHE DOES, SHE SAID SHE MIGHT WANT TO USE [facility] BUT THIS NEEDS TO BE CONFIRMED. REVIEWED SHE COULD GO HOME WITH [facility].
[2016-09-03 16:00] VITALS: BP 147/74; PULSE 71; RESP 16; TEMP 98.2; O2SAT 93
[2016-09-03] MEDS: RIVAROXABAN 20 MG TABLET PO SCH (17:38)
--- NOTE | 2016-09-03 19:25 | NUR ---
Shift Summary Pt is resting comfortably in bed. Ambulates well with assist of 1, FWW, and gait belt. Reported pain to the Rt knee received Roxicodone IR (2) at 0908 and 1335, she reported that she wanted to wait to have more pain medication until bedtime. Has been continent this shift, able to manage her clothing and cares. Worked well with therapy today. Ate well for meals, did not need assist with her tray, ambulated to the dining room. Used the polar pack a few times this shift. IVL to the Lt wrist flushed well, tolerated the IV Lasix. When in bed the bed alarm is in use and call light is within reach.
[2016-09-03 21:37] VITALS: BP 152/71; PULSE 70; RESP 18; TEMP 98.4; O2SAT 96
[2016-09-03] MEDS: ATORVASTATIN 40 MG TABLET PO SCH (22:22)
[2016-09-03] MEDS: CHOLECALCIFEROL 1,000 UNIT TABLET PO SCH (22:24)
[2016-09-03 22:30] VITALS: PULSE 70; RESP 18
--- NOTE | 2016-09-04 03:54 | NUR ---
Chart Check 24 hour chart check completed
[2016-09-04] MEDS: OXYCODONE I.R. 5 MG TABLET PO PRN ×5 (04:23→22:45)
[2016-09-04] MEDS: LEVOTHYROXINE 150 MCG TABLET PO SCH (04:23)
[2016-09-04 05:15] LABS: BASOPHILS % (AUTO) 0.2 % (0-2); EOSINOPHILS # (AUTO) 0.2 T/MM3 (0-0.5); EOSINOPHILS % (AUTO) 2.4 % (0-4); HCT - HEMATOCRIT 26.3 % (36-46); HGB - HEMOGLOBIN 8.2 GM/DL (12-16); IMMATURE GRANULOCYTE # (AUTO) 0.04 T/MM3 (0.00-0.03); IMMATURE GRANULOCYTE % (AUTO) 0.5 % (0.0-0.5); LYMPHOCYTES # (AUTO) 2.8 T/MM3 (1-4.8); LYMPHOCYTES % (AUTO) 33.3 % (23-45); MEAN CORPUSCULAR HGB 30.3 UUG (26-34); MEAN CORPUSCULAR HGB CONC(MCHC 31.2 GM/DL (31-37); MEAN PLATELET VOLUME 9.1 UM3 (9.4-12.4); MONOCYTES # (AUTO) 1.1 T/MM3 (0-0.8); MONOCYTES % (AUTO) 13.4 % (0-9.0); NEUTROPHILS #(AUTO)-ABSOLUTE 4.3 T/MM3 (1.8-7.7); NEUTROPHILS % (AUTO) 50.2 % (33-66); RED BLOOD COUNT 2.71 M/MM3 (4.00-5.20); WBC - WHITE BLOOD COUNT 8.5 T/MM3 (4.5-11.0)
[2016-09-04 05:29] LABS: ANION GAP 10 MEQ/L (5-15); BUN/CREATININE RATIO 19 RATIO (6-26); CALCIUM 8.6 MG/DL (8.4-10.2); CHLORIDE 100 MEQ/L (98-107); CO2 - CARBON DIOXIDE 29 MEQ/L (22-30); CREATININE 0.8 MG/DL (0.7-1.2); GLOMERULAR FILTRATION RATE 70; GLUCOSE 102 MG/DL (65-110); POTASSIUM 4.4 MEQ/L (3.6-5); SODIUM 139 MEQ/L (134-144)
--- NOTE | 2016-09-04 07:35 | NUR ---
Summary Linnette is a pleasant and cooperative patient. She was medicated x two for pain .When in bed she has side rails up x two and bedalarm on.O2 per nc at 2 liter.She ambulates and transfers with fww gaitbelt and sba.Her gait is steady.She has refused her scd's.Polar pack to knee as needed .Her dressing to her right knee is clean dry and intact.
[2016-09-04 08:00] VITALS: BP 128/62; PULSE 72; RESP 18; TEMP 98.3; O2SAT 94
[2016-09-04] MEDS: ACETAMINOPHEN 325 MG TABLET PO SCH ×4 (08:38→22:44)
[2016-09-04] MEDS: POLYETHYL.GLYCOL 3350 PACKET 17gm PO SCH (08:38)
[2016-09-04] MEDS: FERROUS GLUCONATE 324 MG TABLET PO SCH (08:38)
[2016-09-04] MEDS: FLECAINIDE 50 MG TABLET PO SCH ×2 (08:38→22:42)
[2016-09-04] MEDS: CALCIUM 500 MG TABLET PO SCH ×2 (08:39→22:42)
[2016-09-04] MEDS: TIMOLOL 0.5% EYE DROPS 5ml LEFT EYE SCH (08:39)
[2016-09-04] MEDS: ACYCLOVIR 200 MG CAPSULE PO SCH (08:39)
[2016-09-04] MEDS: SENNA + DOCUSATE TAB PO SCH ×2 (08:39→22:42)
[2016-09-04 08:45] VITALS: PULSE 72; RESP 18
[2016-09-04] MEDS: FUROSEMIDE 40 MG TABLET PO SCH (10:07)
[2016-09-04 16:02] VITALS: BP 121/58; PULSE 68; RESP 16; TEMP 98.4; O2SAT 95
[2016-09-04] MEDS: RIVAROXABAN 20 MG TABLET PO SCH (17:32)
[2016-09-04 17:35] VITALS: O2SAT 89
[2016-09-04 17:37] VITALS: O2SAT 94
--- NOTE | 2016-09-04 19:00 | NUR ---
SHIFT SUMMARY PATIENT ALERT AND ORIENTED X 3, C/O PAIN IN R KNEE INCISION, PATIENT PAIN MANAGED WELL WITH PRN OXYCODONE AND SCHEDULED TYLENOL. IV SL LEAKING TODAY WHEN FLUSHED.IV/D/ZUHAIR. AMB WITH ONE ASSIST WITH GAIT BELT AND WALKER. ATE MEAL;S NO N/V. WILL CONT TO MONITOR.
--- NOTE | 2016-09-04 19:27 | PNPDOC ---
IRU Subjective Date DATE: 09/03/16 TIME: 19:44 Pt seen and evaluated 09/03/16 at approx 19:44, note entered today. Subjective Patient in room watching TV. Comfortable. Is requiring oxygen. Did work with physical therapy occupational therapy today. IRU Objective Vital Signs Vital signs Vital Signs Date Time Temp Pulse Resp B/P Pulse Ox O2 Delivery O2 Flow Rate FiO2 09/04/16 17:37 94 Nasal Cannula 1.00 09/04/16 16:02 98.4 68 16 121/58 Height (Feet): 5 Height (Inches): 7.00 Weight (Kilograms): 88.500 General General Appearance: Alert, Orientated x 2 Respiratory (Brief) Respiratory: FOUND: clear all schulz, equal bilaterally, NOT FOUND: rales, wheezes Cardiovascular (Brief) Cardiac: FOUND: regular rate, regular rhythm, NOT FOUND: pedal edema Capillary Refill: <2 sec Laboratory Laboratory Laboratory Tests Test 09/03/16 08:18 09/04/16 04:53 White Blood Count 9.8T/MM3 8.5T/MM3 Red Blood Count 2.91M/MM3 2.71M/MM3 Hemoglobin 8.9GM/DL 8.2GM/DL Hematocrit 28.1% 26.3% Mean Corpuscular Volume 96.6UM3 97.0UM3 Mean Corpuscular Hemoglobin 30.6UUG 30.3UUG Mean Corpuscular Hemoglobin Concent 31.7GM/DL 31.2GM/DL RDW Standard Deviation 50.8FL 49.3FL Platelet Count 381T/MM3 383T/MM3 Mean Platelet Volume 9.2UM3 9.1UM3 Immature Granulocyte % (Auto) 0.4% 0.5% Neutrophils (%) (Auto) 57.4% 50.2% Lymphocytes (%) (Auto) 26.2% 33.3% Monocytes (%) (Auto) 13.6% 13.4% Eosinophils (%) (Auto) 2.1% 2.4% Basophils (%) (Auto) 0.3% 0.2% Absolute Immature Granulocyte (auto 0.04T/MM3 0.04T/MM3 Absolute Neutrophils (auto) 5.6T/MM3 4.3T/MM3 Absolute Lymphocytes (auto) 2.6T/MM3 2.8T/MM3 Absolute Monocytes (auto) 1.3T/MM3 1.1T/MM3 Absolute Eosinophils (auto) 0.2T/MM3 0.2T/MM3 Absolute Basophils (auto) 0.0T/MM3 0.0T/MM3 Turbidity < 20 Sodium Level 139MEQ/L Potassium Level 4.4MEQ/L Chloride Level 100MEQ/L Carbon Dioxide Level 29MEQ/L Anion Gap 10MEQ/L Blood Urea Nitrogen 15.0MG/DL Creatinine 0.8MG/DL Glomerular Filtration Rate Calc 70 BUN/Creatinine Ratio 19RATIO Glucose Level 102MG/DL Calculated Osmolality 269MOSM/KG Calcium Level 8.6MG/DL Icterus Index < 2 Chemistry Specimen Hemolysis < 15 Assessment & Plan Problems: (1) S/P total knee arthroplasty Status: Acute Qualifiers: Laterality: right Qualified Codes: Z96.651 - Presence of right artificial knee joint Assessment & Plan: Working with physical therapy and occupational therapy, definitely increasing strength and range of motion. (2) Diabetes Status: Chronic Assessment & Plan: Managed by medical (3) Anemia following surgery Status: Acute Assessment & Plan: Stable, managed by medical (4) Myopathy Assessment & Plan: Increasing strength and stability, continue with current PT and OT plan. DVT Prophylaxis: SCD'S Code Status Full Code Interventions to Obtain Goals PT Treatment Plan: Therapeutic Exercise, Gait Training, Functional Activities , Patient/Family Education, Balance/Proprioception OT Treatment Plan: ADL's (basic care), Ther. Exercise for ADL's, UE Functional Training, Balance Training, Pt./Family Education, IADL's Hospital Course Summary Disclaimer The hospital course summary below is not to be considered part of the above Progress Note. Hospital Course Summary 08/30/16 Continue with Inpatient rehabilitation treatment as per Dr Bansal In light of continued hypoxia will obtain Chest X-ray today. Will work on weaning off oxygen as able. Encourage use of routine incentive spirometry. Will follow hemoglobin closely as patient does have postop anemia. Hgb today is 7.8. Lillie with current pain regimen including oxycodone and Tylenol. Encourage patient to elevate her right leg and knee and utilize Polar Pack to help with inflammation and swelling. Senna plus scheduled twice a day for ongoing bowel motivation. Will hold oral potassium given mild Hyperkalemia. Will recheck BMP tomorrow morning Continue on chronic Xarelto for anticoagulation and chronic proximal atrial fibrillation. Encourage continued work with PT/OT for ongoing post-op strengthening and function improvement 08/31/16 Postop anemia - hgb down to 7.3 today; pt describes sx of generalized weakness, tiredness, and some dyspnea - but these sx may also be explained by fluid retention, and anemia could be dilutional in nature. Weight has trended up significantly - on 08/26/16 her weight was 83 kg; on 08/29 it was 90.7 and today 92 kg. She is on Lasix 20 mg daily - will give Bumex 1 mg x1 at noon today. This should also help to waste potassium, which was minimally elevated at 5.1. Leukocytosis resolved. 09/03/16 Continue with oxygen therapy to maintain oxygen saturations. Will try and wean as able. Since her oxygen demands are increasing, we will obtain a CXR to rule out pulmonary concerns. Continue with daily weights. Her weight has increased 3 kilograms overnight, we will give her a dose of Lasix 20mg IV for diuresis today. We will resume oral Lasix 40mg tomorrow. We will continue to watch her right breast for pain and swelling. Continue with Roxicodone for pain control. She received 1 unit PRBC on 09/01. Her hemoglobin today is 9.8. We will continue to monitor her Hgb levels. Her vital signs are stable. BP 148/70, HR 78, R- 16, SPO2 94% on 3.5L per NC. Continue with therapy for strengthening and function improvement. CBC and BMP on 09/04 to monitor renal function, blood counts and electrolytes. ANDREW BANSAL MD Sep 04, 2016 19:27
[2016-09-04 20:00] VITALS: BP 129/59; PULSE 62; RESP 18; TEMP 98.2; O2SAT 96
[2016-09-04] MEDS: CHOLECALCIFEROL 1,000 UNIT TABLET PO SCH (22:43)
[2016-09-04] MEDS: ATORVASTATIN 40 MG TABLET PO SCH (22:43)
[2016-09-05] MEDS: OXYCODONE I.R. 5 MG TABLET PO PRN ×4 (02:15→17:24)
--- NOTE | 2016-09-05 06:18 | NUR ---
SHIFT SUMMARY Linnette has used PRN pain meds at HS and again at 215am and Polar Solo to manage knee pain. Area is swollen. Dressing intact. No drainage noted. She requires min assist for ambulation. Supervision for toilet and bed transfers and toilet hygiene. Cont. of B/B. No accidents noted. Uses call light appropriately. A/Ox3. She reports she fell asleep easily but awakened frequently.
[2016-09-05] MEDS: LEVOTHYROXINE 175 MCG TABLET PO SCH (07:11)
[2016-09-05 07:25] VITALS: BP 128/59; PULSE 71; RESP 16; TEMP 98.1; O2SAT 94
[2016-09-05] MEDS: ACETAMINOPHEN 325 MG TABLET PO SCH ×3 (09:01→17:25)
[2016-09-05] MEDS: FERROUS GLUCONATE 324 MG TABLET PO SCH (09:01)
[2016-09-05] MEDS: TIMOLOL 0.5% EYE DROPS 5ml LEFT EYE SCH (09:02)
[2016-09-05] MEDS: FLECAINIDE 50 MG TABLET PO SCH (09:02)
[2016-09-05] MEDS: SENNA + DOCUSATE TAB PO SCH (09:02)
[2016-09-05] MEDS: ACYCLOVIR 200 MG CAPSULE PO SCH (09:02)
[2016-09-05] MEDS: CALCIUM 500 MG TABLET PO SCH (09:02)
[2016-09-05] MEDS: FUROSEMIDE 40 MG TABLET PO SCH (09:02)
[2016-09-05] MEDS: POLYETHYL.GLYCOL 3350 PACKET 17gm PO SCH (09:07)
[2016-09-05 09:12] VITALS: O2SAT 93
[2016-09-05 10:58] VITALS: PULSE 64
--- NOTE | 2016-09-05 11:47 | NUR ---
CM ANTICIPATED DC DATE TODAY. THIS WORKER SPOKE WITH PT ABOUT THIS. SHE SAID SHE FEELS COMFORTABLE WITH THIS AND IS READY TO RETURN HOME. SHE SAID HER SONS WILL HELP, AND SHE ALSO HAS FRIENDS (ONE IN PARTICULAR LIVES JUST DOWN THE ROAD AND IS AVAILABLE TO HELP WHENEVER NEEDED). HOWEVER, SHE SAID SHE DOES NOT THINK SHE WILL NEED ANY OF THEIR HELP AND WILL BE FINE AT HOME. REVIEWED HOME HEALTH: THIS WILL BE THROUGH [facility]. OXYGEN NEED WILL BE ASSESSED BY RT. REVIEWED IM WITH PT, AND SHE SIGNED THIS AND HAD NO QUESTIONS/CONCERNS ABOUT IT. Addendum: 09/05/16 at 1148 by JALYN OWUSU Amended: Links added.
--- NOTE | 2016-09-05 12:51 | PNPDOC ---
LORAINE BALBUENA V BLACK OXIDE OPERATOR 09/05/16 1251: Subjective Date DATE: 09/05/16 TIME: 12:48 Subjective Linnette is seen today sitting in the dinning anton finishing her lunch. She reports that she is doing well and excited to go home today. She denies chest pain, shortness of air or discomfort. She is eating and drinking well. Objective Vital Signs Vital signs Vital Signs Date Time Temp Pulse Resp B/P Pulse Ox O2 Delivery O2 Flow Rate FiO2 09/05/16 10:58 64 1.00 09/05/16 09:12 93 Room Air 09/05/16 07:25 98.1 16 128/59 Height (Feet): 5 Height (Inches): 7.00 Weight (Kilograms): 87.300 General General Appearance: Alert, Orientated x 3, Cooperative, No Acute Distress Respiratory (Brief) Respiratory: FOUND: clear all schulz, equal bilaterally Cardiovascular (Brief) Cardiac: FOUND: regular rate, regular rhythm Abdomen (Brief) Abdominal: FOUND: BS normo active x4, soft Musculoskeletal (Brief) Musculoskeletal: FOUND: extremities move equally Integumentary (Brief) Integumentary: FOUND: dry, other (incision to right knee, covered with dressing ), pink, warm Neurologic (Brief) Neurological: FOUND: cranial 2-12 intact Psychiatric (Brief) Psychiatric: FOUND: alert, normal affect, oriented Laboratory Laboratory Laboratory Tests 09/04/16 04:53 Laboratory Tests 09/04/16 04:53 Assessment & Plan Problems: (1) Hypoxia Status: Acute (2) Anemia following surgery Status: Acute (3) Bruise of breast Status: Acute (4) S/P total knee arthroplasty Status: Acute Qualifiers: Laterality: right Qualified Codes: Z96.651 - Presence of right artificial knee joint (5) Epistaxis Onset Date: 08/30/2016 Status: Resolved (6) Acute kidney injury Status: Resolved (7) Hyperkalemia Status: Resolved (8) Leukocytosis Status: Resolved Assessment & Plan: Continues to trend down (9) Hypertension Status: Chronic (10) Paroxysmal atrial fibrillation Status: Chronic (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 Her hemoglobin continues to be stable. Post PRBC transfusion, Hgb was 8.6. Currently it is 8.2. We will write for outpatient CBC to be followed up by her PCP. No right breast for pain and swelling, ecchymosis still present. Continue with Roxicodone for pain control. Her vital signs are stable. BP: 128/59, HR: 71, R: 18, 94% 1 LNC Planning for discharge later today.Will follow up with PCP and will recheck CBC and BMP Code Status Full Code Hospital Course Summary Disclaimer The hospital course summary below is not to be considered part of the above Progress Note. Hospital Course Summary 08/30/16 Continue with Inpatient rehabilitation treatment as per Dr Smith In light of continued hypoxia will obtain Chest X-ray today. Will work on weaning off oxygen as able. Encourage use of routine incentive spirometry. Will follow hemoglobin closely as patient does have postop anemia. Hgb today is 7.8. Lillie with current pain regimen including oxycodone and Tylenol. Encourage patient to elevate her right leg and knee and utilize Polar Pack to help with inflammation and swelling. Senna plus scheduled twice a day for ongoing bowel motivation. Will hold oral potassium given mild Hyperkalemia. Will recheck BMP tomorrow morning Continue on chronic Xarelto for anticoagulation and chronic proximal atrial fibrillation. Encourage continued work with PT/OT for ongoing post-op strengthening and function improvement 08/31/16 Postop anemia - hgb down to 7.3 today; pt describes sx of generalized weakness, tiredness, and some dyspnea - but these sx may also be explained by fluid retention, and anemia could be dilutional in nature. Weight has trended up significantly - on 08/26/16 her weight was 83 kg; on 08/29 it was 90.7 and today 92 kg. She is on Lasix 20 mg daily - will give Bumex 1 mg x1 at noon today. This should also help to waste potassium, which was minimally elevated at 5.1. Leukocytosis resolved. 09/03/16 Continue with oxygen therapy to maintain oxygen saturations. Will try and wean as able. Since her oxygen demands are increasing, we will obtain a CXR to rule out pulmonary concerns. Continue with daily weights. Her weight has increased 3 kilograms overnight, we will give her a dose of Lasix 20mg IV for diuresis today. We will resume oral Lasix 40mg tomorrow. We will continue to watch her right breast for pain and swelling. Continue with Roxicodone for pain control. She received 1 unit PRBC on 09/01. Her hemoglobin today is 9.8. We will continue to monitor her Hgb levels. Her vital signs are stable. BP 148/70, HR 78, R- 16, SPO2 94% on 3.5L per NC. Continue with therapy for strengthening and function improvement. CBC and BMP on 09/04 to monitor renal function, blood counts and electrolytes. 09/05/16 Ambulatory oximetry evaluation indicates the need for 1 L at rest and 3 L with activity. Her hemoglobin continues to be stable. Post PRBC transfusion, Hgb was 8.6. Currently it is 8.2. We will write for outpatient CBC to be followed up by her PCP. No right breast for pain and swelling, ecchymosis still present. Continue with Roxicodone for pain control. Her vital signs are stable. BP: 128/59, HR: 71, R: 18, 94% 1 LNC Planning for discharge later today.Will follow up with PCP and will recheck CBC and BMP MELISSA ACOSTA MD 09/05/16 5913: Assessment & Plan Plan/Intensity of Service Have independently interviewed and examined pt. Chart reviewed. Case discussed with my BLACK OXIDE OPERATOR. Above care plan developed with my supervision; agree with above. Doing well. Pain controlled. Made good progress with therapy - strength and functional abilities improved. Still needing O2. Not having cough or congestion. Eating well. CV: regular Lungs: no distress MSE: awake alert appropriate Gen: looks much improved!! Plan: Agree with discharge to home. Encourage continuation of exercises to help functional status. Continue O2 at home. F/U with PCP. Medically stable for discharge. LORAINE BALBUENA V BLACK OXIDE OPERATOR Sep 05, 2016 12:51 MELISSA ACOSTA MD Sep 05, 2016 17:07
[2016-09-05] MEDS ORDERED: OXYC-533 PO (13:34)
[2016-09-05] MEDS ORDERED: FERR324T PO (15:35)
[2016-09-05] MEDS ORDERED: FURO40TA5 PO (15:35)
[2016-09-05] MEDS: RIVAROXABAN 20 MG TABLET PO SCH (17:24)
--- NOTE | 2016-09-05 17:54 | NUR ---
DISCHARGE NOTE PATIENT D/C INSTRUCTIONS GIVEN. D/W PATIENT ABOUT D/C MEDICATIONS, ACTIVITY, F/U APPTS, F/U LABS. PATIENT HANDOUTS GIVEN ON HOME O2 USE, KNEE REPLACEMENTS, AND NEW MEDICATIONS. FERROUS GLUCONATE SCRIPT CALLED INTO [facility]. ARMBANDS REMOVED. PATIENT BELONGINGS WITH PATIENT. PATIENT TRANSPORTED OUT OF IRU IN WHEELCHAIR BY RN WITH SON ACCOMPANYING. PATIENT LEFT IN PRIVATE VEHICLE WITH SON OUT OF ER EXIT.
--- NOTE | 2016-09-15 14:56 | DSPDOC ---
General Date Date DATE: 09/05/16 TIME: 14:55 Attending Physician Sivakumar Bansal MD Admitting Physician Sivakumar Bansal MD Consulting Physician Lala Cartagena MD Admitting Diagnosis Right knee replacement. Discharge Diagnosis atrial fibrillation Chronic anticoagulation-Xarelto Hypothyroidism Hypertension Diabetes Glaucoma. Sleep apnea-uses BiPAP at night Hyperlipidemia Pulmonary hypertension Chronic paralyzed team and diaphragm Restless leg syndrome Osteopenia Right knee replacement. History of Present Illness 75 yo female s/p R TKA with weakness and pain post op. Pt unable to return home to care for self due to pain and weakness. She is requiring assist with ADL and is not safe on her own. She plans to return home after treatment. She fell, injuring right knee which already had sig pain and osteoarthritis. R TKA performed. Hospital Course 08/30/16 Continue with Inpatient rehabilitation treatment as per Dr Bansal In light of continued hypoxia will obtain Chest X-ray today. Will work on weaning off oxygen as able. Encourage use of routine incentive spirometry. Will follow hemoglobin closely as patient does have postop anemia. Hgb today is 7.8. Lillie with current pain regimen including oxycodone and Tylenol. Encourage patient to elevate her right leg and knee and utilize Polar Pack to help with inflammation and swelling. Senna plus scheduled twice a day for ongoing bowel motivation. Will hold oral potassium given mild Hyperkalemia. Will recheck BMP tomorrow morning Continue on chronic Xarelto for anticoagulation and chronic proximal atrial fibrillation. Encourage continued work with PT/OT for ongoing post-op strengthening and function improvement 08/31/16 Postop anemia - hgb down to 7.3 today; pt describes sx of generalized weakness, tiredness, and some dyspnea - but these sx may also be explained by fluid retention, and anemia could be dilutional in nature. Weight has trended up significantly - on 08/26/16 her weight was 83 kg; on 08/29 it was 90.7 and today 92 kg. She is on Lasix 20 mg daily - will give Bumex 1 mg x1 at noon today. This should also help to waste potassium, which was minimally elevated at 5.1. Leukocytosis resolved. 09/03/16 Continue with oxygen therapy to maintain oxygen saturations. Will try and wean as able. Since her oxygen demands are increasing, we will obtain a CXR to rule out pulmonary concerns. Continue with daily weights. Her weight has increased 3 kilograms overnight, we will give her a dose of Lasix 20mg IV for diuresis today. We will resume oral Lasix 40mg tomorrow. We will continue to watch her right breast for pain and swelling. Continue with Roxicodone for pain control. She received 1 unit PRBC on 09/01. Her hemoglobin today is 9.8. We will continue to monitor her Hgb levels. Her vital signs are stable. BP 148/70, HR 78, R- 16, SPO2 94% on 3.5L per NC. Continue with therapy for strengthening and function improvement. CBC and BMP on 09/04 to monitor renal function, blood counts and electrolytes. 09/05/16 Ambulatory oximetry evaluation indicates the need for 1 L at rest and 3 L with activity. Her hemoglobin continues to be stable. Post PRBC transfusion, Hgb was 8.6. Currently it is 8.2. We will write for outpatient CBC to be followed up by her PCP. No right breast for pain and swelling, ecchymosis still present. Continue with Roxicodone for pain control. Her vital signs are stable. BP: 128/59, HR: 71, R: 18, 94% 1 LNC Planning for discharge later today.Will follow up with PCP and will recheck CBC and BMP Problems: (1) Hypoxia Status: Acute (2) Anemia following surgery Status: Acute (3) Bruise of breast Status: Acute (4) S/P total knee arthroplasty Status: Acute (5) Epistaxis Onset Date: 08/30/2016 Status: Resolved (6) Acute kidney injury Status: Resolved (7) Hyperkalemia Status: Resolved (8) Leukocytosis Status: Resolved Assessment & Plan: Continues to trend down (9) Hypertension Status: Chronic (10) Paroxysmal atrial fibrillation Status: Chronic (11) Paralyzed hemidiaphragm Status: Chronic (12) Pulmonary hypertension Status: Chronic (13) Hyperlipemia Status: Chronic (14) Diabetes Status: Chronic (15) Sleep apnea Status: Chronic (16) Obesity (BMI 30-39.9) Status: Chronic (17) Constipation Code Status Full Code Home Meds Active Scripts Ferrous Gluconate (Ferrous Gluconate) 324 Mg Tablet, 324 MG PO WB for 30 Days, # 30 TAB Prov:LORAINE BALBUENA APRN 09/05/16 Furosemide (Furosemide) 40 Mg Tablet, 40 MG PO DAILY for 7 Days, #7 TAB take 40 MG daily until patient sees Dr. Eason on 09/11/16 Prov:LORAINE BALBUENA APRN 09/05/16 Oxycodone HCl/Acetaminophen (Oxycodone-Acetaminophen 10-325) 10-325 Tablet, 1 TAB PO Q4-5H, #30 TAB Prov:LORAINE BALBUENA APRN 09/05/16 Sennosides (Senna) 8.6 Mg Tablet, 17.2 MG PO DAILY Y for CONSTIPATION for 7 Days , #14 TAB Prov:HAILEY MARINO 08/29/16 Magnesium Hydroxide (Milk of Magnesia) 400 Mg/5 Ml Oral.susp, 30 ML PO DAILY Y for CONSTIPATION for 14 Days Prov:HAILEY MARINO 08/29/16 Docusate Sodium (Colace) 100 Mg Capsule, 100 MG PO BID, #60 CAP Prov:HAILEY MARINO 08/29/16 Polyethylene Glycol 3350 (Healthylax) 17 Gm Powd.pack, 17 G PO DAILY, #30 PACKET Prov:АНДРЕЙ AMIN 08/27/16 Acetaminophen (Tylenol) 325 Mg Tablet, 650 MG PO QID, #100 TAB Prov:АНДРЕЙ AMIN 08/27/16 Reported Medications Levothyroxine Sodium (Levothyroxine Sodium) 175 Mcg Tablet, 175 MCG PO ACB Mon& Thu, TAB Once daily before breakfast on Thursday and Thursday. 08/05/16 Acyclovir (Zovirax) 200 Mg Capsule, 200 MG PO DAILY, CAP 08/04/16 Timolol Maleate (Timolol Maleate) 5 Ml Drops, 1 DROP LEFT EYE DAILY 08/04/16 Potassium Chloride (Klor-Con 8) 8 Meq Tablet, 1 TAB PO HS 08/04/16 Atorvastatin Calcium (Atorvastatin Calcium) 80 Mg Tablet, 80 MG PO HS 10/28/15 Rivaroxaban (Xarelto) 20 Mg Tablet, 20 MG PO HS 10/28/15 Levothyroxine Sodium (Levothyroxine Sodium) 150 Mcg Tablet, 150 MCG PO SuTuWeThSa One tablet with breakfast everyday except Thursday and Thursday. 10/28/15 Flecainide Acetate (Flecainide Acetate) 50 Mg Tablet, 50 MG PO BID 10/28/15 Cholecalciferol (Vitamin D3) (Vitamin D) 2,000 Unit Tablet, 2000 UNIT PO HS 10/28/15 Citalopram Hydrobromide (Citalopram HBr) 40 Mg Tablet, 40 MG PO HS 10/28/15 Calcium Carbonate (Calcium) 1 Tab Tablet, 500 MG PO BID 06/06/08 Face to Face Encounter I met with patient on the day of dismissal and discussed follow up appointments , medications, and safety plan. Discharge Disposition Discharge home SIVAKUMAR BANSAL MD Sep 15, 2016 14:56
== END 2016-09-05 17:54 | disposition home health service (06) | DRG 561 ==
PROVIDERS: ADMIT Family Medicine; ATTEND Family Medicine
PROC: F07Z9FZ Gait Training/Functional Ambulation Treatment using Assistive, Adaptive, Supportive or Protective Equipment (ICD-10-PCS; principal; 2016-08-29)
PROC: F07M6ZZ Therapeutic Exercise Treatment of Musculoskeletal System - Whole Body (ICD-10-PCS; 2016-08-29)
PROC: F08Z4ZZ Home Management Treatment (ICD-10-PCS; 2016-08-29)
PROC: 30233N1 Transfusion of Nonautologous Red Blood Cells into Peripheral Vein, Percutaneous Approach (ICD-10-PCS; 2016-09-01)
DX: Z47.1 Aftercare following joint replacement surgery (principal); Z96.651 Presence of right artificial knee joint; R53.1 Weakness; G89.18 Other acute postprocedural pain; G72.9 Myopathy, unspecified; E87.5 Hyperkalemia; E11.9 Type 2 diabetes mellitus without complications; D64.9 Anemia, unspecified; I48.0 Paroxysmal atrial fibrillation; I10 Essential (primary) hypertension; E03.9 Hypothyroidism, unspecified; H40.9 Unspecified glaucoma; E78.5 Hyperlipidemia, unspecified; I27.2 Other secondary pulmonary hypertension; K59.00 Constipation, unspecified; G25.81 Restless legs syndrome; E66.9 Obesity, unspecified; G47.30 Sleep apnea, unspecified; Z87.891 Personal history of nicotine dependence; Z68.30 Body mass index [BMI] 30.0-30.9, adult
CPT/HCPCS: 36415; 80048; 83735; 85018; 85025; 85027; 86850; 86900; 86901; 86922; 94761